=== PATIENT | female | born 2000 | race Caucasian/White ===

== ENCOUNTER 2018-07-05 18:55 | Emergency (ER) | payer OTHER ==
[2018-07-05 19:59] LABS: Basophils % (A) 0 %; Eosinophils # (A) 0.1 k/uL (0-0.7); Eosinophils % (A) 1 %; HCT 43.2 % (34.0-46.0); HGB 14.6 gm/dL (11.4-16.0); Lymphocytes # (A) 1.3 k/uL (1.0-4.8); Lymphocytes % (A) 21 %; MCH 31.2 pg (25.0-35.0); MCHC 33.9 g/dL (31.0-37.0); Mean Platelet Volume 7.3; Monocytes # (A) 0.3 k/uL (0-1.0); Monocytes % (A) 5 %; Neutrophils # (A) 4.5 k/uL (1.3-7.7); Neutrophils % (A) 71 %; Platelet Count 196 k/uL (150-450); RBC 4.69 m/uL (3.80-5.40); RDW 13.3 % (11.5-15.5); WBC 6.3 k/uL (4.0-11.0)
[2018-07-05] MEDS ORDERED: SODIUM CHLORIDE 0.9% 1,000 ML IV ONE (20:04)
[2018-07-05 20:08] LABS: ALT 65 U/L (9-52); AST 46 U/L (14-36); Albumin 4.4 g/dL (3.5-5.0); Alkaline Phosphatase 78 U/L (38-126); Anion Gap 8 mmol/L; Blood Urea Nitrogen 14 mg/dL (7-17); Calcium 9.4 mg/dL (8.4-10.2); Carbon Dioxide 27 mmol/L (22-30); Chloride 104 mmol/L (98-107); Glucose 80 mg/dL (74-99); Sodium 139 mmol/L (137-145); Total Bilirubin 0.6 mg/dL (0.2-1.3); Total Protein 7.7 g/dL (6.3-8.2)
--- NOTE | 2018-07-05 20:12 | ED ---
Back Pain HPI - General Chief Complaint: Back Pain/Injury Stated Complaint: KIDNEY PAIN Time Seen by Provider: 07/05/18 19:59 Source: patient Limitations: no limitations - History of Present Illness Initial Comments: 17-year-old female patient presents to emergency department today for evaluation of flank pain. Patient started to have right flank pain yesterday, states that the left flank started to hurt today. Patient states that she does have a history of frequent urinary tract infections and kidney stones. Patient states that she did take Azo yesterday but did not help her symptoms. She denies any dysuria, hematuria, urinary urgency, urinary frequency. States she has been chilled, denies documented fever. Denies nausea or vomiting. States there is a chance she may be . She denies any cough or congestion but states that the right flank does hurt worse and she takes a deep breath. Patient states she has seen a specialist for urinary tract infections, states that he only treated her with antibiotics. Patient denies any recent rash, shortness breath, chest pain, abdominal pain, diarrhea, constipation, back pain , numbness, tingling, dizziness, weakness, headache, visual changes, or any other complaints. - Related Data Home Medications Medication Instructions Recorded Confirmed Azo Urinary Pain Relief 2 tab PO TID PRN 07/05/18 07/05/18 Previous Rx's Medication Instructions Recorded Sulfamethoxazole/Trimethoprim 1 each PO BID #10 tablet 07/05/18 [Bactrim DS 800-160 mg] Allergies Allergy/AdvReac Type Severity Reaction Status Date / Time nitrofurantoin Allergy Unknown Verified 07/05/18 19:04 [From [employer]] Review of Systems ROS Statement: Those systems with pertinent positive or pertinent negative responses have been documented in the HPI. ROS Other: All systems not noted in ROS Statement are negative. Past Medical History Past Medical History: No Reported History History of Any Multi-Drug Resistant Organisms: None Reported Past Surgical History: No Surgical Hx Reported Past Psychological History: No Psychological Hx Reported Smoking Status: Never smoker Past Alcohol Use History: None Reported Past Drug Use History: None Reported General Exam Limitations: no limitations General appearance: alert, in no apparent distress, other (This is a well- developed, well-nourished adult female patient in no acute distress. Vital signs upon presentation are temperature 97.7F, pulse 83, respirations 20, blood pressure 118/80, pulse ox 96% on room air.) Eye exam: Present: normal appearance, PERRL, EOMI. Absent: scleral icterus, conjunctival injection, periorbital swelling ENT exam: Present: normal exam, normal oropharynx, mucous membranes moist Respiratory exam: Present: normal lung sounds bilaterally. Absent: respiratory distress, wheezes, rales, rhonchi, stridor Cardiovascular Exam: Present: regular rate, normal rhythm, normal heart sounds. Absent: systolic murmur, diastolic murmur, rubs, gallop, clicks GI/Abdominal exam: Present: soft, normal bowel sounds. Absent: distended, tenderness, guarding, rebound, rigid Back exam: Present: normal inspection. Absent: CVA tenderness (R), CVA tenderness (L) Neurological exam: Present: alert, oriented X3, CN II-XII intact Psychiatric exam: Present: normal affect, normal mood Skin exam: Present: warm, dry, intact, normal color. Absent: rash Course Vital Signs 07/05/18 07/05/18 19:02 20:50 Temperature 97.7 F 98.5 F Pulse Rate 83 68 Respiratory 20 18 Rate Blood Pressure 118/80 115/66 O2 Sat by Pulse 96 99 Oximetry Medical Decision Making - Medical Decision Making 17-year-old female patient presents the emergency department today for complaints of bilateral flank pain. Physical examination is relatively unremarkable. Labs reviewed and are unremarkable. Urinalysis did have many bacteria so we will treat patient for urinary tract infection. Patient does have frequent urinary tract infection so we will have her follow-up with urology for further evaluation. Return parameters were discussed in detail. She verbalizes understanding and agrees with this plan. - Lab Data Result diagrams: 07/05/18 19:50 07/05/18 19:50 Lab Results 07/05/18 07/05/18 07/05/18 Range/Units 19:50 19:50 20:00 WBC 6.3 (4.0-11.0) k/uL RBC 4.69 (3.80-5.40) m/uL Hgb 14.6 (11.4-16.0) gm/dL Hct 43.2 (34.0-46.0) % MCV 92.0 (80.0-100.0) fL MCH 31.2 (25.0-35.0) pg MCHC 33.9 (31.0-37.0) g/dL RDW 13.3 (11.5-15.5) % Plt Count 196 (150-450) k/uL Neutrophils % 71 % Lymphocytes % 21 % Monocytes % 5 % Eosinophils % 1 % Basophils % 0 % Neutrophils # 4.5 (1.3-7.7) k/uL Lymphocytes # 1.3 (1.0-4.8) k/uL Monocytes # 0.3 (0-1.0) k/uL Eosinophils # 0.1 (0-0.7) k/uL Basophils # 0.0 (0-0.2) k/uL Sodium 139 (137-145) mmol/L Potassium 4.0 (3.5-5.1) mmol/L Chloride 104 (98-107) mmol/L Carbon Dioxide 27 (22-30) mmol/L Anion Gap 8 mmol/L BUN 14 (7-17) mg/dL Creatinine 0.80 (0.52-1.04) mg/dL Est GFR (CKD-EPI)AfAm >90 (>60 ml/min/1.73 sqM) Est GFR (CKD-EPI)NonAf >90 (>60 ml/min/1.73 sqM) Glucose 80 (74-99) mg/dL Calcium 9.4 (8.4-10.2) mg/dL Total Bilirubin 0.6 (0.2-1.3) mg/dL AST 46 H (14-36) U/L ALT 65 H (9-52) U/L Alkaline Phosphatase 78 (38-126) U/L Total Protein 7.7 (6.3-8.2) g/dL Albumin 4.4 (3.5-5.0) g/dL Urine Color Yellow Urine Appearance Cloudy H (Clear) Urine pH 7.0 (5.0-8.0) Ur Specific [place] 1.013 (1.001-1.035) Urine Protein Negative (Negative) Urine Glucose (UA) Negative (Negative) Urine Ketones Negative (Negative) Urine Blood Negative (Negative) Urine Nitrite Negative (Negative) Urine Bilirubin Negative (Negative) Urine Urobilinogen <2.0 (<2.0) mg/dL Ur Leukocyte Esterase Small H (Negative) Urine RBC 5 (0-5) /hpf Urine WBC 8 H (0-5) /hpf Ur Squamous Epith Cells 2 (0-4) /hpf Amorphous Sediment Rare H (None) /hpf Urine Bacteria Many H (None) /hpf Urine Mucus Rare H (None) /hpf Urine HCG, Qual (Not Detectd) 07/05/18 Range/Units 20:00 WBC (4.0-11.0) k/uL RBC (3.80-5.40) m/uL Hgb (11.4-16.0) gm/dL Hct (34.0-46.0) % MCV (80.0-100.0) fL MCH (25.0-35.0) pg MCHC (31.0-37.0) g/dL RDW (11.5-15.5) % Plt Count (150-450) k/uL Neutrophils % % Lymphocytes % % Monocytes % % Eosinophils % % Basophils % % Neutrophils # (1.3-7.7) k/uL Lymphocytes # (1.0-4.8) k/uL Monocytes # (0-1.0) k/uL Eosinophils # (0-0.7) k/uL Basophils # (0-0.2) k/uL Sodium (137-145) mmol/L Potassium (3.5-5.1) mmol/L Chloride (98-107) mmol/L Carbon Dioxide (22-30) mmol/L Anion Gap mmol/L BUN (7-17) mg/dL Creatinine (0.52-1.04) mg/dL Est GFR (CKD-EPI)AfAm (>60 ml/min/1.73 sqM) Est GFR (CKD-EPI)NonAf (>60 ml/min/1.73 sqM) Glucose (74-99) mg/dL Calcium (8.4-10.2) mg/dL Total Bilirubin (0.2-1.3) mg/dL AST (14-36) U/L ALT (9-52) U/L Alkaline Phosphatase (38-126) U/L Total Protein (6.3-8.2) g/dL Albumin (3.5-5.0) g/dL Urine Color Urine Appearance (Clear) Urine pH (5.0-8.0) Ur Specific [place] (1.001-1.035) Urine Protein (Negative) Urine Glucose (UA) (Negative) Urine Ketones (Negative) Urine Blood (Negative) Urine Nitrite (Negative) Urine Bilirubin (Negative) Urine Urobilinogen (<2.0) mg/dL Ur Leukocyte Esterase (Negative) Urine RBC (0-5) /hpf Urine WBC (0-5) /hpf Ur Squamous Epith Cells (0-4) /hpf Amorphous Sediment (None) /hpf Urine Bacteria (None) /hpf Urine Mucus (None) /hpf Urine HCG, Qual Not Detected (Not Detectd) Disposition Clinical Impression: Urinary tract infection Disposition: HOME SELF-CARE Condition: Good Instructions: Urinary Tract Infection in Women (DC) Additional Instructions: Complete antibiotic prescription and full. Call for culture results in 2 days. Follow-up with your primary care physician and your urology specialist for further evaluation. Return here immediately for any new, worsening, or concerning symptoms. Prescriptions: Sulfamethoxazole/Trimethoprim [Bactrim DS 800-160 mg] 1 each PO BID #10 tablet Is patient prescribed a controlled substance at d/c from ED?: No Referrals: Ger Shearer MD [STAFF PHYSICIAN] - 1-2 days Time of Disposition: 20:44
[2018-07-05 20:21] LABS: Amorphous Sediment,Urine Rare /hpf; Appearance,Urine Cloudy (Clear); Bacteria,Urine Many /hpf; Bilirubin,Urine Negative (Negative); Blood,Urine Negative (Negative); Color,Urine Yellow; Glucose,Urine (UA) Negative (Negative); Ketones,Urine Negative (Negative); Leukocyte Esterase,Urine Small (Negative); Mucus,Urine Rare /hpf; Nitrite,Urine Negative (Negative); Protein,Urine Negative (Negative); RBC,Urine 5 /hpf (0-5); Specific Gravity,Urine 1.013 (1.001-1.035); Squamous Epithelial Cell,Urine 2 /hpf (0-4); Urobilinogen,Urine <2.0 mg/dL (<2.0); WBC,Urine 8 /hpf (0-5)
[2018-07-05 21:05] VITALS: BP 115/66; PULSE 68; RESP 18; TEMP 98.5
== END 2018-07-05 20:50 | disposition home or self-care (01) ==
LOC: EC 18:55
DX: N39.0 Urinary tract infection, site not specified (principal); Z87.442 Personal history of urinary calculi; Z88.1 Allergy status to other antibiotic agents
CPT/HCPCS: 36415; 80053; 81001; 81025; 85025; 87086; 96360; 99283

== ENCOUNTER 2020-03-15 17:29 | Emergency (ER) | payer OTHER ==
--- NOTE | 2020-03-15 18:14 | ED ---
Female Urogenital HPI - General Chief complaint: Vaginal Bleeding Stated complaint: Vaginal bleeding, Time Seen by Provider: 03/15/20 17:52 Source: patient Mode of arrival: ambulatory Limitations: no limitations - History of Present Illness Initial comments: Patient is a 19-year-old female presenting to the emergency Department with complaints of vaginal spotting and cramping since this morning. Patient states she is currently approximately 7 weeks with twins. Patient states this was confirmed by blood testing/US 2 weeks ago. Patient is seeing Ellen Fitzgerald at [facility]. Patient states this morning she has noticed some cramping as well as bleeding. Patient states it is not enough to soak a full pad but states it is continuous. She has not noticed any passing of clots. This is patient's first . Patient denies any dysuria. She denies any sharp shooting abdominal pain. She has no previous abdominal surgeries. Patient denies recent fever, chills. She has no other complaints at this time. - Related Data Home Medications Medication Instructions Recorded Confirmed Azo Urinary Pain Relief 2 tab PO TID PRN 07/05/18 07/05/18 Previous Rx's Medication Instructions Recorded Sulfamethoxazole/Trimethoprim 1 each PO BID #10 tablet 07/05/18 [Bactrim DS 800-160 mg] Allergies Allergy/AdvReac Type Severity Reaction Status Date / Time nitrofurantoin Allergy Unknown Verified 03/15/20 17:34 [From [employer]] Review of Systems ROS Statement: Those systems with pertinent positive or pertinent negative responses have been documented in the HPI. ROS Other: All systems not noted in ROS Statement are negative. Past Medical History Past Medical History: No Reported History History of Any Multi-Drug Resistant Organisms: None Reported Past Surgical History: No Surgical Hx Reported Past Psychological History: Depression Smoking Status: Never smoker Past Alcohol Use History: None Reported Past Drug Use History: None Reported General Exam - General Exam Comments Initial Comments: GENERAL: Well-appearing, well-nourished and in no acute distress. HEAD: Atraumatic, normocephalic. EYES: Pupils equal round and reactive to light, extraocular movements intact, sclera anicteric, conjunctiva are normal. ENT: Moist mucous membranes. NECK: Normal range of motion, supple without lymphadenopathy or JVD. LUNGS: Breath sounds clear to auscultation bilaterally and equal. No wheezes rales or rhonchi. HEART: Regular rate and rhythm without murmurs, rubs or gallops. ABDOMEN: Soft, nontender, normoactive bowel sounds. No guarding, no rebound. No masses appreciated. EXTREMITIES: Normal range of motion, no pitting or edema. No clubbing or cyanosis. NEUROLOGICAL: Normal speech, normal gait. PSYCH: Normal mood, normal affect. SKIN: Warm, Dry, normal turgor, no rashes or lesions noted. Limitations: no limitations External exam: Present: normal external exam Speculum exam: Present: vaginal discharge. Absent: vaginal bleeding, foreign body By manual exam: Present: normal by manual exam Course Vital Signs 03/15/20 03/15/20 17:31 20:14 Temperature 97.9 F 98.0 F Pulse Rate 89 85 Respiratory 18 16 Rate Blood Pressure 118/74 121/77 O2 Sat by Pulse 97 98 Oximetry Medical Decision Making - Medical Decision Making Patient is a 19-year-old female currently 7 weeks , with twins, here for vaginal cramping and spotting. . Patient sees Ellen Fitzgerald at [facility]. Patient's vaginal exam reveals no vaginal bleeding, mild cervical discharge. Cervical os appears to be closed. Lab work shows no significant findings, hCG Quant is 32,000. Blood type is O+. Ultrasound reveals 2 gestational sacs within the uterus. Psych A contains a pole and yolk sac although no heart tones are identified at this time. A second sac contains a yolk sac although no pole is identified. Follow-up is recommended. I did discuss these findings with the patient. Patient will follow up with her FOOD SERVICE ATTENDANT on Wednesday. I did give patient a lab slip for repeat beta in 48 hours. Patient is stable for discharge. I did go over return parameters and she verbalizes understanding. Case discussed with Dr. Bowen. - Lab Data Result diagrams: 03/15/20 18:20 03/15/20 18:20 Lab Results 03/15/20 03/15/20 03/15/20 Range/Units 18:20 18:20 18:20 WBC 6.8 (3.8-10.6) k/uL RBC 4.32 (3.80-5.40) m/uL Hgb 13.7 (11.4-16.0) gm/dL Hct 40.6 (34.0-46.0) % MCV 93.9 (80.0-100.0) fL MCH 31.6 (25.0-35.0) pg MCHC 33.7 (31.0-37.0) g/dL RDW 12.5 (11.5-15.5) % Plt Count 194 (150-450) k/uL Neutrophils % 72 % Lymphocytes % 21 % Monocytes % 4 % Eosinophils % 1 % Basophils % 0 % Neutrophils # 4.9 (1.3-7.7) k/uL Lymphocytes # 1.4 (1.0-4.8) k/uL Monocytes # 0.3 (0-1.0) k/uL Eosinophils # 0.1 (0-0.7) k/uL Basophils # 0.0 (0-0.2) k/uL Sodium 139 (137-145) mmol/L Potassium 3.9 (3.5-5.1) mmol/L Chloride 107 (98-107) mmol/L Carbon Dioxide 20 L (22-30) mmol/L Anion Gap 12 mmol/L BUN 6 L (7-17) mg/dL Creatinine 0.63 (0.52-1.04) mg/dL Est GFR (CKD-EPI)AfAm >90 (>60 ml/min/1.73 sqM) Est GFR (CKD-EPI)NonAf >90 (>60 ml/min/1.73 sqM) Glucose 85 (74-99) mg/dL Calcium 9.5 (8.4-10.2) mg/dL Total Bilirubin 0.6 (0.2-1.3) mg/dL AST 24 (14-36) U/L ALT 11 (4-34) U/L Alkaline Phosphatase 65 (38-126) U/L Total Protein 7.5 (6.3-8.2) g/dL Albumin 4.4 (3.5-5.0) g/dL HCG, Quant 30852.7 mIU/mL Urine Color Yellow Urine Appearance Cloudy H (Clear) Urine pH 6.0 (5.0-8.0) Ur Specific [place] 1.020 (1.001-1.035) Urine Protein Trace H (Negative) Urine Glucose (UA) Negative (Negative) Urine Ketones 1+ H (Negative) Urine Blood Small H (Negative) Urine Nitrite Negative (Negative) Urine Bilirubin Negative (Negative) Urine Urobilinogen 2.0 (<2.0) mg/dL Ur Leukocyte Esterase Small H (Negative) Urine RBC 66 H (0-5) /hpf Urine WBC 12 H (0-5) /hpf Ur Squamous Epith Cells 5 H (0-4) /hpf Urine Mucus Few H (None) /hpf Blood Type Blood Type Recheck Bld Type Recheck Status 03/15/20 Range/Units 18:20 WBC (3.8-10.6) k/uL RBC (3.80-5.40) m/uL Hgb (11.4-16.0) gm/dL Hct (34.0-46.0) % MCV (80.0-100.0) fL MCH (25.0-35.0) pg MCHC (31.0-37.0) g/dL RDW (11.5-15.5) % Plt Count (150-450) k/uL Neutrophils % % Lymphocytes % % Monocytes % % Eosinophils % % Basophils % % Neutrophils # (1.3-7.7) k/uL Lymphocytes # (1.0-4.8) k/uL Monocytes # (0-1.0) k/uL Eosinophils # (0-0.7) k/uL Basophils # (0-0.2) k/uL Sodium (137-145) mmol/L Potassium (3.5-5.1) mmol/L Chloride (98-107) mmol/L Carbon Dioxide (22-30) mmol/L Anion Gap mmol/L BUN (7-17) mg/dL Creatinine (0.52-1.04) mg/dL Est GFR (CKD-EPI)AfAm (>60 ml/min/1.73 sqM) Est GFR (CKD-EPI)NonAf (>60 ml/min/1.73 sqM) Glucose (74-99) mg/dL Calcium (8.4-10.2) mg/dL Total Bilirubin (0.2-1.3) mg/dL AST (14-36) U/L ALT (4-34) U/L Alkaline Phosphatase (38-126) U/L Total Protein (6.3-8.2) g/dL Albumin (3.5-5.0) g/dL HCG, Quant mIU/mL Urine Color Urine Appearance (Clear) Urine pH (5.0-8.0) Ur Specific [place] (1.001-1.035) Urine Protein (Negative) Urine Glucose (UA) (Negative) Urine Ketones (Negative) Urine Blood (Negative) Urine Nitrite (Negative) Urine Bilirubin (Negative) Urine Urobilinogen (<2.0) mg/dL Ur Leukocyte Esterase (Negative) Urine RBC (0-5) /hpf Urine WBC (0-5) /hpf Ur Squamous Epith Cells (0-4) /hpf Urine Mucus (None) /hpf Blood Type O Positive Blood Type Recheck No Previous Record Bld Type Recheck Status [facility] ONLY Disposition Clinical Impression: Threatened , Bilateral lower abdominal cramping, Vaginal spotting Disposition: HOME SELF-CARE Condition: Stable Instructions (If sedation given, give patient instructions): Threatened Miscarriage (ED) Additional Instructions: Please return to the Emergency Department if symptoms worsen or any other concerns. Follow-up with FOOD SERVICE ATTENDANT on Wednesday as discussed. Is patient prescribed a controlled substance at d/c from ED?: No Referrals: None,Stated [Primary Care Provider] - 1-2 days
[2020-03-15 18:35] LABS: Basophils % (A) 0 %; Eosinophils # (A) 0.1 k/uL (0-0.7); Eosinophils % (A) 1 %; HCT 40.6 % (34.0-46.0); HGB 13.7 gm/dL (11.4-16.0); Lymphocytes # (A) 1.4 k/uL (1.0-4.8); Lymphocytes % (A) 21 %; MCH 31.6 pg (25.0-35.0); MCHC 33.7 g/dL (31.0-37.0); MCV 93.9 fL (80.0-100.0); Mean Platelet Volume 8.5; Monocytes # (A) 0.3 k/uL (0-1.0); Monocytes % (A) 4 %; Neutrophils # (A) 4.9 k/uL (1.3-7.7); Neutrophils % (A) 72 %; Platelet Count 194 k/uL (150-450); RBC 4.32 m/uL (3.80-5.40); RDW 12.5 % (11.5-15.5); WBC 6.8 k/uL (3.8-10.6)
[2020-03-15 18:40] LABS: ALT 11 U/L (4-34); AST 24 U/L (14-36); African American GFR (CKD) >90 (>60 ml/min/1.73 sqM); Albumin 4.4 g/dL (3.5-5.0); Alkaline Phosphatase 65 U/L (38-126); Anion Gap 12 mmol/L; Blood Urea Nitrogen 6 mg/dL (7-17); Calcium 9.5 mg/dL (8.4-10.2); Carbon Dioxide 20 mmol/L (22-30); Chloride 107 mmol/L (98-107); Glucose 85 mg/dL (74-99); Non-African American GFR(CKD) >90 (>60 ml/min/1.73 sqM); Potassium 3.9 mmol/L (3.5-5.1); Sodium 139 mmol/L (137-145); Total Bilirubin 0.6 mg/dL (0.2-1.3); Total Protein 7.5 g/dL (6.3-8.2)
[2020-03-15 19:04] LABS: Appearance,Urine Cloudy (Clear); Bilirubin,Urine Negative (Negative); Blood,Urine Small (Negative); Color,Urine Yellow; Glucose,Urine (UA) Negative (Negative); Ketones,Urine 1+ (Negative); Leukocyte Esterase,Urine Small (Negative); Mucus,Urine Few /hpf; Nitrite,Urine Negative (Negative); Protein,Urine Trace (Negative); RBC,Urine 66 /hpf (0-5); Squamous Epithelial Cell,Urine 5 /hpf (0-4); WBC,Urine 12 /hpf (0-5)
[2020-03-15 19:24] LABS: HCG,Quantitative Serum 32425.7 mIU/mL
--- NOTE | 2020-03-15 19:47 | US ---
EXAMINATION TYPE: US OB<=14wk fetus twins/travag DATE OF EXAM: 03/15/2020 COMPARISON: NONE CLINICAL HISTORY: cramping, bleeding. cramping and spotting today EXAM PERFORMED: Transvaginal (TV) and Transabdominal (TA) EXAM MEASUREMENTS: GESTATIONAL AGE / DATING Physician Established: Not yet established Dates by LMP: (8 weeks/2 days) EDC: 10/23/20 Dates by First Scan: No previous this is first scan Dates by Current Scan for Baby A: (6 weeks/5 days) EDC: 11/03/20 Dates by Current Scan for Baby B: ( 6 weeks/5 days) - MSD EDC: 11/03/20 - MSD MATERNAL ANATOMY Uterus: 9.1 x 4.4 x 6.0cm Right Ovary: obscured by overlying bowel content Left Ovary: 3.7 x 2.2 x 2.8cm Post CDS / Adnexa: small amount of free fluid left adnexa adjacent to ovary Presence of free fluid: yes Presence of corpus luteal cyst: yes, complex area left ovary = 1.7 x 1.9 x 1.8cm Presence of two separate gestational sacs: yes GESTATION / SURVEY TWIN A CRL: 7.6cm (6wks/5days) Yolk Sac (normal less than 6mm): 0.5cm Heart Rate: unable to detect heart tones at this time TWIN B MSD: 1.1cm (6wks/5days) Yolk Sac (normal less than 6mm): 0.4cm IUP: No evidence of pole at this time Date of LMP: 01/17/20 Beta HcG (if available): Not available at this time 2 gestational sacs identified within uterus. Unable to detect heart tones at this time - Baby A . No evidence of pole identified within baby B gestational sac. Corpus luteum left ovary. Small amount of free fluid left adnexa. recommend short term follow up IMPRESSION: 1. There are 2 gestational sacs within the uterus. 2. Sac A contains a pole and yolk sac although no heart tones could be identified at this time. From flank would suggest a 6 week 5 day gestation which should have heart tones visible. 3. A second gestational sac contains a yolk sac although no pole is identified. 4. Follow-up is recommended.
[2020-03-15 20:15] VITALS: BP 121/77; PULSE 85; RESP 16; TEMP 98
== END 2020-03-15 20:15 | disposition home or self-care (01) ==
LOC: EC 17:29
DX: O20.0 Threatened abortion (principal); O99.89 Other specified diseases and conditions complicating pregnancy, childbirth and the puerperium; R10.31 Right lower quadrant pain; R10.32 Left lower quadrant pain; Z3A.01 Less than 8 weeks gestation of pregnancy; Z88.1 Allergy status to other antibiotic agents
CPT/HCPCS: 36415; 76801; 76802; 76817; 80053; 81001; 84702; 85025; 86900; 86901; 87086; 99284

== ENCOUNTER 2020-04-03 16:41 | Emergency (ER) | payer OTHER ==
[2020-04-03 16:44] VITALS: BP 111/77; PULSE 71; RESP 18; TEMP 98
[2020-04-03] MEDS ORDERED: SODIUM CHLORIDE 0.9% 1,000 ML IV ONE (17:32)
[2020-04-03] MEDS ORDERED: ACETAMINOPHEN TAB 500 MG TAB PO STA (17:32)
--- NOTE | 2020-04-03 18:04 | ED ---
General Adult HPI - General Chief complaint: Vaginal Bleeding Stated complaint: post miscarriage/vaginal bleeding Time Seen by Provider: 04/03/20 16:48 Source: patient Mode of arrival: ambulatory Limitations: no limitations - History of Present Illness Initial comments: 19-year-old female patient presents to the emergency department today for evaluation of vaginal bleeding. Patient states that she had positive test at home, was seen and evaluated on 03/15/2020 and was informed she was having a miscarriage. Patient states 3 days ago she started to have red vaginal bleeding. States that today she has been having heavier bleeding and soaking through a pad an hour. States she is passing large blood clots. States she has been following up with her PLASTIC MAKER and [facility] who has been performing serial hCGs which have been decreasing. Patient states she is having lower abdominal cramping and low back pain. Denies dizziness or weakness. Denies any fever or chills. She denies nausea or vomiting. Patient is G1. Last period was January 12. Patient denies any recent rash, cough, shortness of breath, chest pain, diarrhea, constipation, back pain, numbness, tingling, hematuria, dysuria, urinary urgency, urinary frequency, headache, visual changes, or any other complaints. - Related Data Home Medications Medication Instructions Recorded Confirmed Azo Urinary Pain Relief 2 tab PO TID PRN 07/05/18 07/05/18 Previous Rx's Medication Instructions Recorded Sulfamethoxazole/Trimethoprim 1 each PO BID #10 tablet 07/05/18 [Bactrim DS 800-160 mg] Ketorolac [Toradol] 10 mg PO Q6HR #12 tab 04/03/20 Allergies Allergy/AdvReac Type Severity Reaction Status Date / Time nitrofurantoin Allergy Unknown Verified 04/03/20 16:44 [From [email or web address]] Review of Systems ROS Statement: Those systems with pertinent positive or pertinent negative responses have been documented in the HPI. ROS Other: All systems not noted in ROS Statement are negative. Past Medical History Past Medical History: No Reported History History of Any Multi-Drug Resistant Organisms: None Reported Past Surgical History: No Surgical Hx Reported Past Psychological History: Depression Smoking Status: Never smoker Past Alcohol Use History: None Reported Past Drug Use History: None Reported General Exam Limitations: no limitations General appearance: alert, in no apparent distress, other (This is a well- developed, well-nourished adult female patient in no acute distress. Vital signs upon presentation are temperature 98.0F, pulse 71, respirations 18, blood pressure 111/77, pulse ox 99% on room air.) Eye exam: Present: normal appearance, PERRL, EOMI. Absent: scleral icterus, conjunctival injection, periorbital swelling ENT exam: Present: normal exam, normal oropharynx, mucous membranes moist Respiratory exam: Present: normal lung sounds bilaterally. Absent: respiratory distress, wheezes, rales, rhonchi, stridor Cardiovascular Exam: Present: regular rate, normal rhythm, normal heart sounds. Absent: systolic murmur, diastolic murmur, rubs, gallop, clicks GI/Abdominal exam: Present: soft, tenderness (Suprapubic), normal bowel sounds. Absent: distended, guarding, rebound, rigid External exam: Present: normal external exam Speculum exam: Present: vaginal bleeding (moderate vaginal bleeding with presence of large clots. Unable to visualize cervix due to bleeding. ) Neurological exam: Present: alert, oriented X3, CN II-XII intact Psychiatric exam: Present: normal affect, normal mood Skin exam: Present: warm, dry, intact, normal color. Absent: rash Course Vital Signs 04/03/20 16:42 Temperature 98.0 F Pulse Rate 71 Respiratory 18 Rate Blood Pressure 111/77 O2 Sat by Pulse 99 Oximetry Medical Decision Making - Medical Decision Making 19-year-old female patient presented to the emergency department today for evaluation of heavy vaginal bleeding and abdominal pain. Patient is aware that she is having a miscarriage of a twin gestation. Physical examination did reveal suprapubic abdominal tenderness. Vaginal exam was performed and did show moderate bleeding with large amount of clots. Ultrasound was obtained and did show demise of twin B and possibly twin A. HCG level did decrease from 35,000 on 03/15/2020 6000 today. Hgb is 13.5. V/S have been stable. Dr. Santos was in to see the patient. He did discuss D&C with the patient. She is stable right now and would prefer to pass the products of conception spontaneously. She will be given prescription for pain. She is instructed to call her PLASTIC MAKER in the morning. Return parameters were discussed in detail. She verbalizes understanding and agrees with this plan. - Lab Data Result diagrams: 04/03/20 17:58 04/03/20 17:58 Lab Results 04/03/20 04/03/20 04/03/20 Range/Units 17:58 17:58 17:58 WBC 5.7 (3.8-10.6) k/uL RBC 4.16 (3.80-5.40) m/uL Hgb 13.5 (11.4-16.0) gm/dL Hct 39.9 (34.0-46.0) % MCV 95.9 (80.0-100.0) fL MCH 32.4 (25.0-35.0) pg MCHC 33.8 (31.0-37.0) g/dL RDW 13.1 (11.5-15.5) % Plt Count 209 (150-450) k/uL Neutrophils % 66 % Lymphocytes % 25 % Monocytes % 5 % Eosinophils % 1 % Basophils % 0 % Neutrophils # 3.8 (1.3-7.7) k/uL Lymphocytes # 1.4 (1.0-4.8) k/uL Monocytes # 0.3 (0-1.0) k/uL Eosinophils # 0.1 (0-0.7) k/uL Basophils # 0.0 (0-0.2) k/uL PT 10.5 (9.0-12.0) sec INR 1.0 (<1.2) APTT 23.6 (22.0-30.0) sec Sodium 136 L (137-145) mmol/L Potassium 4.2 (3.5-5.1) mmol/L Chloride 107 (98-107) mmol/L Carbon Dioxide 22 (22-30) mmol/L Anion Gap 7 mmol/L BUN 5 L (7-17) mg/dL Creatinine 0.66 (0.52-1.04) mg/dL Est GFR (CKD-EPI)AfAm >90 (>60 ml/min/1.73 sqM) Est GFR (CKD-EPI)NonAf >90 (>60 ml/min/1.73 sqM) Glucose 82 (74-99) mg/dL Calcium 9.7 (8.4-10.2) mg/dL Total Bilirubin 0.8 (0.2-1.3) mg/dL AST 24 (14-36) U/L ALT 11 (4-34) U/L Alkaline Phosphatase 68 (38-126) U/L Total Protein 7.4 (6.3-8.2) g/dL Albumin 4.3 (3.5-5.0) g/dL HCG, Quant 6249.7 mIU/mL Urine Color Urine Appearance (Clear) Urine pH (5.0-8.0) Ur Specific [place] (1.001-1.035) Urine Protein (Negative) Urine Glucose (UA) (Negative) Urine Ketones (Negative) Urine Blood (Negative) Urine Nitrite (Negative) Urine Bilirubin (Negative) Urine Urobilinogen (<2.0) mg/dL Ur Leukocyte Esterase (Negative) Urine RBC (0-5) /hpf Urine WBC (0-5) /hpf Ur Squamous Epith Cells (0-4) /hpf Urine Bacteria (None) /hpf Urine Mucus (None) /hpf Blood Type Blood Type Recheck Bld Type Recheck Status 04/03/20 04/03/20 Range/Units 17:58 Unknown WBC (3.8-10.6) k/uL RBC (3.80-5.40) m/uL Hgb (11.4-16.0) gm/dL Hct (34.0-46.0) % MCV (80.0-100.0) fL MCH (25.0-35.0) pg MCHC (31.0-37.0) g/dL RDW (11.5-15.5) % Plt Count (150-450) k/uL Neutrophils % % Lymphocytes % % Monocytes % % Eosinophils % % Basophils % % Neutrophils # (1.3-7.7) k/uL Lymphocytes # (1.0-4.8) k/uL Monocytes # (0-1.0) k/uL Eosinophils # (0-0.7) k/uL Basophils # (0-0.2) k/uL PT (9.0-12.0) sec INR (<1.2) APTT (22.0-30.0) sec Sodium (137-145) mmol/L Potassium (3.5-5.1) mmol/L Chloride (98-107) mmol/L Carbon Dioxide (22-30) mmol/L Anion Gap mmol/L BUN (7-17) mg/dL Creatinine (0.52-1.04) mg/dL Est GFR (CKD-EPI)AfAm (>60 ml/min/1.73 sqM) Est GFR (CKD-EPI)NonAf (>60 ml/min/1.73 sqM) Glucose (74-99) mg/dL Calcium (8.4-10.2) mg/dL Total Bilirubin (0.2-1.3) mg/dL AST (14-36) U/L ALT (4-34) U/L Alkaline Phosphatase (38-126) U/L Total Protein (6.3-8.2) g/dL Albumin (3.5-5.0) g/dL HCG, Quant mIU/mL Urine Color Yellow Urine Appearance Clear (Clear) Urine pH 6.0 (5.0-8.0) Ur Specific [place] 1.017 (1.001-1.035) Urine Protein Negative (Negative) Urine Glucose (UA) Negative (Negative) Urine Ketones 1+ H (Negative) Urine Blood Moderate H (Negative) Urine Nitrite Negative (Negative) Urine Bilirubin Negative (Negative) Urine Urobilinogen 6.0 (<2.0) mg/dL Ur Leukocyte Esterase Negative (Negative) Urine RBC 15 H (0-5) /hpf Urine WBC 1 (0-5) /hpf Ur Squamous Epith Cells 1 (0-4) /hpf Urine Bacteria Rare H (None) /hpf Urine Mucus Rare H (None) /hpf Blood Type O Positive Blood Type Recheck O Pos Bld Type Recheck Status No - Radiology Data Radiology results: report reviewed, image reviewed Transvaginal ultrasound was obtained. Report was reviewed in its entirety. Impression by Dr. Rudy Giles shows suspected intrauterine twin the demise. Nonvisualization twin A pole without heart tones detected. This may be pr oducts of small size. Short-term beta hCG and ultrasound follow-up advised. Disposition Clinical Impression: Miscarriage Disposition: HOME SELF-CARE Condition: Good Instructions (If sedation given, give patient instructions): Miscarriage (ED) Additional Instructions: Follow up with your OBGYN in the morning. Apply warm compresses to the lower abdomen. Take tylenol in addition to your prescription. Return to the emergency department if you are soaking through more than 2 pads per hour, feel weak, dizzy, or pass out. Return to the emergency department for any new, worsening, or concerning symptoms. Prescriptions: Ketorolac [Toradol] 10 mg PO Q6HR #12 tab Is patient prescribed a controlled substance at d/c from ED?: No Referrals: Ellen Skaggs MD [REFERRING] - 1-2 days Time of Disposition: 20:36
[2020-04-03 18:18] LABS: Basophils % (A) 0 %; Eosinophils # (A) 0.1 k/uL (0-0.7); Eosinophils % (A) 1 %; HCT 39.9 % (34.0-46.0); HGB 13.5 gm/dL (11.4-16.0); Lymphocytes # (A) 1.4 k/uL (1.0-4.8); Lymphocytes % (A) 25 %; MCH 32.4 pg (25.0-35.0); MCHC 33.8 g/dL (31.0-37.0); MCV 95.9 fL (80.0-100.0); Mean Platelet Volume 8.9; Monocytes # (A) 0.3 k/uL (0-1.0); Monocytes % (A) 5 %; Neutrophils # (A) 3.8 k/uL (1.3-7.7); Neutrophils % (A) 66 %; Platelet Count 209 k/uL (150-450); RBC 4.16 m/uL (3.80-5.40); RDW 13.1 % (11.5-15.5); WBC 5.7 k/uL (3.8-10.6)
[2020-04-03 18:26] LABS: Partial Thromboplastin Time 23.6 sec (22.0-30.0); Prothrombin Time 10.5 sec (9.0-12.0)
[2020-04-03 18:31] LABS: ALT 11 U/L (4-34); AST 24 U/L (14-36); African American GFR (CKD) >90 (>60 ml/min/1.73 sqM); Albumin 4.3 g/dL (3.5-5.0); Alkaline Phosphatase 68 U/L (38-126); Anion Gap 7 mmol/L; Blood Urea Nitrogen 5 mg/dL (7-17); Calcium 9.7 mg/dL (8.4-10.2); Carbon Dioxide 22 mmol/L (22-30); Chloride 107 mmol/L (98-107); Glucose 82 mg/dL (74-99); Non-African American GFR(CKD) >90 (>60 ml/min/1.73 sqM); Potassium 4.2 mmol/L (3.5-5.1); Sodium 136 mmol/L (137-145); Total Bilirubin 0.8 mg/dL (0.2-1.3); Total Protein 7.4 g/dL (6.3-8.2)
[2020-04-03 18:47] LABS: HCG,Quantitative Serum 6249.7 mIU/mL
[2020-04-03] MEDS ORDERED: ONDANSETRON 4 MG/2 ML VIAL IVP STA (19:02)
[2020-04-03] MEDS ORDERED: MORPHINE SULFATE 4 MG/ML SYRINGE IVP STA (19:02)
--- NOTE | 2020-04-03 19:19 | US ---
EXAMINATION TYPE: US OB<=14wk fetus twins/travag DATE OF EXAM: 04/03/2020 COMPARISON: Recent ultrasound March 15, 2020 CLINICAL HISTORY: Bleeding; miscarriage. Vaginal bleeding x 2 days. Miscarriage per order. . EXAM PERFORMED: Transvaginal (TV) and Transabdominal (TA). Transvaginal exam done first due to pelvi c ultrasound order and no hCG lab available yet. EXAM MEASUREMENTS: GESTATIONAL AGE / DATING Physician Established: Not yet established. Dates by LMP: (11 weeks/0 days) EDC: 10/23/2020 Dates by First Scan: (9 weeks/3 days) EDC: 11/03/2020 Dates by Current Scan for Baby A: ( 6 weeks/1 day) EDC: 11/26/2020. No heart tones seen. Dates by Current Scan for Baby B: ( 6 weeks/2 days) EDC: 11/25/2020. MSD. MATERNAL ANATOMY Uterus: 10.2 x 6.2 x 4.9 cm. Complex fluid-appearing area seen in cervix inferiorly measurin.2 x 1.2 x 1.2 cm. Right Ovary: 3.0 x 2.2 x 1.6 cm. Follicles seen. Left Ovary: 3.5 x 2.7 x 2.0 cm. Measures upper limits of normal. Post CDS / Adnexa: Minimal fluid seen in CDS. Presence of free fluid: FF seen in CDS. Presence of corpus luteal cyst: Area of mixed echogenicity and peripheral vascularity seen left ovary measurin.4 x 1.5 x 1.2 cm. Presence of subchorionic bleed: Hypoechoic, heterogeneous area seen adjacent to the gestational sacs measurin.7 x 1.7 x 0.6 cm. Presence of two separate gestational sacs: yes GESTATION / SURVEY TWIN A CRL: 0.45 cm. (6wks/1day) Yolk Sac (normal less than 6mm): 3 mm. Heart Rate: Not detected IUP: No heart rate detected. TWIN B MSD: 1.82 cm. (6wks/2days) Yolk Sac (normal less than 6mm): Not seen. Heart Rate: Not detected. IUP: No CRL or yolk sac seen. Date of LMP: 01/17/2020 Beta HcG (if available): 6,249.7 available after exam. Measurements taken transvaginally with better visualization. No Doppler of ovaries needed per [employer]. Without visualization of pole twin A. Unable to detect heart rate which may be product of small size. No significant interval progression in possible twin B as now a yolk sac not clearly seen. No pole is clearly present. Gestational sac slightly more irregular in shape but slightly larger. IMPRESSION: Suspect intrauterine twin B demise. Now visualization of twin A pole without heart tones detected. This may be product of small size. Short-term beta-hCG and ultrasound follow-up advised.
[2020-04-03 19:23] LABS: Appearance,Urine Clear (Clear); Bacteria,Urine Rare /hpf; Bilirubin,Urine Negative (Negative); Blood,Urine Moderate (Negative); Color,Urine Yellow; Glucose,Urine (UA) Negative (Negative); Ketones,Urine 1+ (Negative); Leukocyte Esterase,Urine Negative (Negative); Mucus,Urine Rare /hpf; Nitrite,Urine Negative (Negative); Protein,Urine Negative (Negative); RBC,Urine 15 /hpf (0-5); Specific Gravity,Urine 1.017 (1.001-1.035); Squamous Epithelial Cell,Urine 1 /hpf (0-4); WBC,Urine 1 /hpf (0-5)
[2020-04-03] MEDS ORDERED: KETOROLAC 30 MG/ML 1 ML VIAL IVP STA (20:34)
--- NOTE | 2020-04-03 20:45 | P.OBCN ---
History of Present Illness Consult date: 04/03/20 Requesting physician: Viky Al Reason for consult: other Chief complaint: Missed AB History of present illness: Haley is a 27-year-old who is supposed to 11 weeks gestation who has ultrasound this afternoon verifying a 6 week twin demise. She relates that she is seeing a physician Dr. Ellen Bedoya out of [facility] and that at 5 weeks she had an ultrasound verifying twin gestation. On March 15 she was then seen in the emergency room at [facility] where ultrasound revealed nonviable twin gestation. She contacted her handle sewer at that point and they decided not to move forward with the suction D&C as she felt she could pass the tissue on her own. She has been handling everything over the phone it sounds like not certain that has seen her physician in 2 weeks. In discussing her symptoms why she came in today, she relates that she started having bright red bleeding earlier today it was heavier than what she was used to although she relates it was less than a pad an hour. She called her handle sewer who told her to go to the nearest hospital. On arrival here it is noted that her hemoglobin is 13 and her vital signs are all stable. Her bleeding is mild to moderate at this time and ultrasound verifies findings from previous ultrasoun ds. She and I discussed options including following up with her handle sewer tomorrow as she is posted blood work with them and trying to come up with a final plan on what she is going to do in the next several days to weeks if she continues to not have a full miscarriage and what the plan is if she starts having very heavy bleeding and where she is to report. I did explain that for heavy bleeding she needed come here as this is the closest hospital with obstetrical care. I did however also offer a suction D&C tonight she has declined that procedure. She relates that she was uncertain as to what to expect from miscarriage and she and I had a lengthy discussion on what symptoms and findings she may have in the upcoming days. I did explain that she will have significantly heavier bleeding than what she has had it could be anywhere from 1-2-3 pads per hour and if the heavier bleeding occur she needs to come into the emergency room immediately. I also explained that her cramping is g oing to be significantly greater as her uterus begins to contract to push the tissue out. I offered to do a speculum exam tonight to evaluate her cervix she has also declined this as she is had other exams today and she would prefer not to have it done. As room stated earlier she has a blood draw in her observations office tomorrow and I 5 she should call and make sure that she is able to see her physician tomorrow so that they can come up with a final plan. She will return for any heavy vaginal bleeding or severe pain or other signs or symptoms including those of hypovolemia. Past Medical History Past Medical History: No Reported History History of Any Multi-Drug Resistant Organisms: None Reported Past Surgical History: No Surgical Hx Reported Past Psychological History: Depression Smoking Status: Never smoker Past Alcohol Use History: None Reported Past Drug Use History: None Reported Medications and Allergies Home Medications Medication Instructions Recorded Confirmed Type Azo Urinary Pain Relief 2 tab PO TID PRN 07/05/18 07/05/18 History Sulfamethoxazole/Trimethoprim 1 each PO BID #10 tablet 07/05/18 Rx [Bactrim DS 800-160 mg] Ketorolac [Toradol] 10 mg PO Q6HR #12 tab 04/03/20 Rx Allergies Allergy/AdvReac Type Severity Reaction Status Date / Time nitrofurantoin Allergy Unknown Verified 04/03/20 16:44 [From [employer]] Exam Osteopathic Statement: *. No significant issues noted on an osteopathic structural exam other than those noted in the History and Physical/Consult. Vital Signs Temp Pulse Resp BP Pulse Ox 04/03/20 16:42 98.0 F 71 18 111/77 99 Intake and Output 04/03/20 04/03/20 04/03/20 06:59 14:59 22:59 Other: Weight 61.235 kg Results Result Diagrams: 04/03/20 17:58 04/03/20 17:58 Abnormal Lab Results - Last 24 Hours (Table) 04/03/20 04/03/20 Range/Units 17:58 Unknown Sodium 136 L (137-145) mmol/L BUN 5 L (7-17) mg/dL Urine Ketones 1+ H (Negative) Urine Blood Moderate H (Negative) Urine RBC 15 H (0-5) /hpf Urine Bacteria Rare H (None) /hpf Urine Mucus Rare H (None) /hpf
== END 2020-04-03 20:49 | disposition home or self-care (01) ==
LOC: EC 16:41
DX: O02.1 Missed abortion (principal); O30.001 Twin pregnancy, unspecified number of placenta and unspecified number of amniotic sacs, first trimester; Z88.3 Allergy status to other anti-infective agents; Z3A.11 11 weeks gestation of pregnancy
CPT/HCPCS: 99285; 96374; 96375 ×2; 96361; 36415; 86900; 86901; 80053; 85025; 85610; 85730; 81001; 84702; 76801; 76802; 76817; J2270; J2405; J1885; 99284

== ENCOUNTER → 2020-04-19 | Outpatient (CLI) | payer OTHER | END | disposition home or self-care (01) | LOC: LABWHC1 13:51 | PROVIDERS: ATTEND Obstetrics & Gynecology | DX: O03.9 Complete or unspecified spontaneous abortion without complication (principal) | CPT/HCPCS: 36415; 84702 ==

== ENCOUNTER 2020-05-21 21:36 | Emergency (ER) | payer OTHER ==
[2020-05-21] MEDS ORDERED: SODIUM CHLORIDE 0.9% 1,000 ML IV STA (22:05)
[2020-05-21 22:32] LABS: Appearance,Urine Clear (Clear); Bacteria,Urine Rare /hpf; Bilirubin,Urine Negative (Negative); Blood,Urine Trace (Negative); Color,Urine Light Yellow; Glucose,Urine (UA) Negative (Negative); Ketones,Urine Negative (Negative); Leukocyte Esterase,Urine Negative (Negative); Nitrite,Urine Negative (Negative); Protein,Urine Negative (Negative); RBC,Urine 2 /hpf (0-5); Specific Gravity,Urine 1.004 (1.001-1.035); Sperm,Urine Occasional /hpf; Urobilinogen,Urine <2.0 mg/dL (<2.0); WBC,Urine 1 /hpf (0-5)
[2020-05-21 22:38] LABS: Basophils # (A) 0.1 k/uL (0-0.2); Basophils % (A) 1 %; Eosinophils # (A) 0.1 k/uL (0-0.7); Eosinophils % (A) 1 %; HCT 40.4 % (34.0-46.0); HGB 13.8 gm/dL (11.4-16.0); Lymphocytes # (A) 2.5 k/uL (1.0-4.8); Lymphocytes % (A) 32 %; MCHC 34.2 g/dL (31.0-37.0); MCV 93.7 fL (80.0-100.0); Mean Platelet Volume 8.3; Monocytes # (A) 0.5 k/uL (0-1.0); Monocytes % (A) 6 %; Neutrophils # (A) 4.6 k/uL (1.3-7.7); Neutrophils % (A) 59 %; Platelet Count 235 k/uL (150-450); RBC 4.31 m/uL (3.80-5.40); RDW 12.9 % (11.5-15.5); WBC 7.8 k/uL (3.8-10.6)
[2020-05-21 22:49] LABS: ALT 11 U/L (4-34); AST 24 U/L (14-36); African American GFR (CKD) >90 (>60 ml/min/1.73 sqM); Albumin 4.7 g/dL (3.5-5.0); Alkaline Phosphatase 76 U/L (38-126); Amylase 66 U/L (30-110); Anion Gap 8 mmol/L; Blood Urea Nitrogen 8 mg/dL (7-17); Calcium 9.7 mg/dL (8.4-10.2); Carbon Dioxide 24 mmol/L (22-30); Chloride 106 mmol/L (98-107); Glucose 70 mg/dL (74-99); Non-African American GFR(CKD) >90 (>60 ml/min/1.73 sqM); Potassium 3.9 mmol/L (3.5-5.1); Sodium 138 mmol/L (137-145); Total Bilirubin 0.7 mg/dL (0.2-1.3); Total Protein 7.5 g/dL (6.3-8.2)
[2020-05-21 23:05] LABS: HCG,Quantitative Serum <2.4 mIU/mL
[2020-05-21 23:35] VITALS: RESP 16
--- NOTE | 2020-05-22 00:17 | US ---
EXAMINATION TYPE: Transabdominal DATE OF EXAM: 05/21/2020 11:54 PM COMPARISON: US CLINICAL HISTORY: retained products?. Retained products? per order. Pain x 1 day. Patient claims she miscarried 1 month ago. . EXAM PERFORMED: Transvaginal (TV) and Transabdominal (TA) EXAM MEASUREMENTS: GESTATIONAL AGE / DATING Physician Established: (17 weeks/6 days) EDC: 10/23/2020 Dates by LMP: (17 weeks/6 days) EDC: 10/23/2020 Dates by First Scan: (16 weeks/2 days) EDC: 11/03/2020. (03/15/20 ultrasound) *Twin seen on last study. Baby A CRL seen without heart tones. Baby B gestational sac seen only (04/03/20 ultrasound). Dates by Current Scan for: No IUP seen at this time. MATERNAL ANATOMY Uterus: 8.1 x 5.6 x 4.0 cm. Anteverted. Anechoic fluid-appearing area seen within cervix measurin .9 x 1.0 x 0.2 cm. Upper endometrium appears to measure 1.3 cm. Right Ovary: 4.2 x 2.2 x 2.6 cm. Measures enlarged. Anechoic area seen: 1.5 x 1.6 x 1.6 cm. Left Ovary: 3.4 x 2.6 x 2.4 cm. Anechoic area seen: 1.0 x 0.7 x 0.6 cm. Post CDS / Adnexa: Free fluid seen in CDS and within right adnexa. Presence of free fluid: Free fluid seen in CDS and within right adnexa. Presence of corpus luteal cyst: not seen GESTATION / SURVEY IUP: No sign of IUP at this time. Date of LMP: 01/17/2020 Beta HcG (if available): <2.4 IMPRESSION: The uterus is empty. There is tiny amount of endometrial fluid that measures 1 to 2 mm. I see no evid ence of retained products. Small amount of free fluid in the pelvis. Bilateral cysts on the ovaries. No solid adnexal mass.
--- NOTE | 2020-05-22 00:51 | ED ---
General Adult HPI - General Chief complaint: Abdominal Pain Stated complaint: Uterus Pains,Miscarriage Time Seen by Provider: 05/21/20 22:04 Source: patient Mode of arrival: ambulatory Limitations: no limitations - History of Present Illness Initial comments: 19-year-old female presents to the emergency department for pelvic discomfort. Patient reports that she had a miscarriage with twins about one month ago. States that she did not need any intervention and pass the material on her own. Patient reports that a couple weeks ago she had intercourse worsened her pelvic pain. Reports that over the past few days it again worsened after intercourse. States it is more on the right side at this point. Denies vaginal bleeding. Denies fevers or chills. Denies any nausea vomiting diarrhea.Patient has no other complaints at this time including shortness of breath, chest pain, abdominal pain, nausea or vomiting, headache, or visual changes. - Related Data Home Medications Medication Instructions Recorded Confirmed Azo Urinary Pain Relief 2 tab PO TID PRN 07/05/18 07/05/18 Previous Rx's Medication Instructions Recorded Sulfamethoxazole/Trimethoprim 1 each PO BID #10 tablet 07/05/18 [Bactrim DS 800-160 mg] Ketorolac [Toradol] 10 mg PO Q6HR #12 tab 04/03/20 Allergies Allergy/AdvReac Type Severity Reaction Status Date / Time nitrofurantoin Allergy Unknown Verified 05/21/20 21:58 [From Macrobid] Review of Systems ROS Statement: Those systems with pertinent positive or pertinent negative responses have been documented in the HPI. ROS Other: All systems not noted in ROS Statement are negative. Past Medical History Past Medical History: No Reported History History of Any Multi-Drug Resistant Organisms: None Reported Past Surgical History: No Surgical Hx Reported Past Psychological History: Depression Smoking Status: Never smoker Past Alcohol Use History: None Reported Past Drug Use History: None Reported General Exam Limitations: no limitations General appearance: alert, in no apparent distress Head exam: Present: atraumatic, normocephalic, normal inspection Eye exam: Present: normal appearance, PERRL, EOMI. Absent: scleral icterus, conjunctival injection, periorbital swelling ENT exam: Present: normal exam, mucous membranes moist Neck exam: Present: normal inspection, full ROM. Absent: tenderness, meningismus, lymphadenopathy Respiratory exam: Present: normal lung sounds bilaterally. Absent: respiratory distress, wheezes, rales, rhonchi, stridor Cardiovascular Exam: Present: regular rate, normal rhythm, normal heart sounds. Absent: systolic murmur, diastolic murmur, rubs, gallop, clicks GI/Abdominal exam: Present: soft, normal bowel sounds. Absent: distended, tenderness (No significant abdominal tenderness), guarding, rebound, rigid Course Vital Signs 05/21/20 05/21/20 21:55 23:34 Temperature 98.1 F Pulse Rate 76 Respiratory 18 16 Rate Blood Pressure 109/69 O2 Sat by Pulse 100 Oximetry Medical Decision Making - Medical Decision Making Vitals are stable. CBC CMP unremarkable. Physical exam is documented. Ultrasound shows an empty uterus with tiny amount of endometrial fluid. No evidence of retained products. Bilateral cysts are noted on the ovary without solid adnexal mass. Patient's pain could be secondary to ovarian cyst. At this time patient be discharged home to follow-up with primary care and [employer]. She is aware to return here if she has any worsening symptoms. - Lab Data Result diagrams: 05/21/20 22:21 05/21/20 22:21 Lab Results 05/21/20 05/21/20 05/21/20 Range/Units 22:10 22:10 22:21 WBC 7.8 (3.8-10.6) k/uL RBC 4.31 (3.80-5.40) m/uL Hgb 13.8 (11.4-16.0) gm/dL Hct 40.4 (34.0-46.0) % MCV 93.7 (80.0-100.0) fL MCH 32.0 (25.0-35.0) pg MCHC 34.2 (31.0-37.0) g/dL RDW 12.9 (11.5-15.5) % Plt Count 235 (150-450) k/uL Neutrophils % 59 % Lymphocytes % 32 % Monocytes % 6 % Eosinophils % 1 % Basophils % 1 % Neutrophils # 4.6 (1.3-7.7) k/uL Lymphocytes # 2.5 (1.0-4.8) k/uL Monocytes # 0.5 (0-1.0) k/uL Eosinophils # 0.1 (0-0.7) k/uL Basophils # 0.1 (0-0.2) k/uL Sodium (137-145) mmol/L Potassium (3.5-5.1) mmol/L Chloride (98-107) mmol/L Carbon Dioxide (22-30) mmol/L Anion Gap mmol/L BUN (7-17) mg/dL Creatinine (0.52-1.04) mg/dL Est GFR (CKD-EPI)AfAm (>60 ml/min/1.73 sqM) Est GFR (CKD-EPI)NonAf (>60 ml/min/1.73 sqM) Glucose (74-99) mg/dL Calcium (8.4-10.2) mg/dL Total Bilirubin (0.2-1.3) mg/dL AST (14-36) U/L ALT (4-34) U/L Alkaline Phosphatase (38-126) U/L Total Protein (6.3-8.2) g/dL Albumin (3.5-5.0) g/dL Amylase (30-110) U/L Lipase (23-300) U/L HCG, Quant mIU/mL Urine Color Light Yellow Urine Appearance Clear (Clear) Urine pH 6.0 (5.0-8.0) Ur Specific [place] 1.004 (1.001-1.035) Urine Protein Negative (Negative) Urine Glucose (UA) Negative (Negative) Urine Ketones Negative (Negative) Urine Blood Trace H (Negative) Urine Nitrite Negative (Negative) Urine Bilirubin Negative (Negative) Urine Urobilinogen <2.0 (<2.0) mg/dL Ur Leukocyte Esterase Negative (Negative) Urine RBC 2 (0-5) /hpf Urine WBC 1 (0-5) /hpf Urine Bacteria Rare H (None) /hpf Urine Sperm Occasional H (None) /hpf Urine HCG, Qual Not Detected (Not Detectd) 05/21/20 Range/Units 22:21 WBC (3.8-10.6) k/uL RBC (3.80-5.40) m/uL Hgb (11.4-16.0) gm/dL Hct (34.0-46.0) % MCV (80.0-100.0) fL MCH (25.0-35.0) pg MCHC (31.0-37.0) g/dL RDW (11.5-15.5) % Plt Count (150-450) k/uL Neutrophils % % Lymphocytes % % Monocytes % % Eosinophils % % Basophils % % Neutrophils # (1.3-7.7) k/uL Lymphocytes # (1.0-4.8) k/uL Monocytes # (0-1.0) k/uL Eosinophils # (0-0.7) k/uL Basophils # (0-0.2) k/uL Sodium 138 (137-145) mmol/L Potassium 3.9 (3.5-5.1) mmol/L Chloride 106 (98-107) mmol/L Carbon Dioxide 24 (22-30) mmol/L Anion Gap 8 mmol/L BUN 8 (7-17) mg/dL Creatinine 0.70 (0.52-1.04) mg/dL Est GFR (CKD-EPI)AfAm >90 (>60 ml/min/1.73 sqM) Est GFR (CKD-EPI)NonAf >90 (>60 ml/min/1.73 sqM) Glucose 70 L (74-99) mg/dL Calcium 9.7 (8.4-10.2) mg/dL Total Bilirubin 0.7 (0.2-1.3) mg/dL AST 24 (14-36) U/L ALT 11 (4-34) U/L Alkaline Phosphatase 76 (38-126) U/L Total Protein 7.5 (6.3-8.2) g/dL Albumin 4.7 (3.5-5.0) g/dL Amylase 66 (30-110) U/L Lipase 118 (23-300) U/L HCG, Quant <2.4 mIU/mL Urine Color Urine Appearance (Clear) Urine pH (5.0-8.0) Ur Specific [place] (1.001-1.035) Urine Protein (Negative) Urine Glucose (UA) (Negative) Urine Ketones (Negative) Urine Blood (Negative) Urine Nitrite (Negative) Urine Bilirubin (Negative) Urine Urobilinogen (<2.0) mg/dL Ur Leukocyte Esterase (Negative) Urine RBC (0-5) /hpf Urine WBC (0-5) /hpf Urine Bacteria (None) /hpf Urine Sperm (None) /hpf Urine HCG, Qual (Not Detectd) Disposition Clinical Impression: Pelvic pain, Ovarian cyst Disposition: HOME SELF-CARE Condition: Good Instructions (If sedation given, give patient instructions): Ovarian Cyst (ED) Additional Instructions: Please take Motrin and Tylenol for pain. Please follow-up with primary care in 1-2 days as well as [employer]. If you have worsening symptoms return here to the emergency room. Is patient prescribed a controlled substance at d/c from ED?: No Referrals: Ellen Skaggs MD [REFERRING] - 1-2 days Time of Disposition: 00:51
[2020-05-22 01:14] VITALS: BP 104/77; PULSE 60; TEMP 97.6
== END 2020-05-22 01:14 | disposition home or self-care (01) ==
LOC: EC 21:36
DX: N83.201 Unspecified ovarian cyst, right side (principal); N83.202 Unspecified ovarian cyst, left side; Z88.1 Allergy status to other antibiotic agents
CPT/HCPCS: 36415; 76801; 76817; 80053; 81001; 81025; 82150; 83690; 84702; 85025; 96360; 96361; 99284

== ENCOUNTER 2020-07-02 10:15 | Emergency (ER) | payer OTHER ==
--- NOTE | 2020-07-02 11:02 | ED ---
General Adult HPI - General Chief complaint: Abdominal Pain Stated complaint: ovarian cyst Time Seen by Provider: 07/02/20 10:38 Source: patient, RN notes reviewed, old records reviewed Mode of arrival: ambulatory Limitations: no limitations - History of Present Illness Initial comments: 19-year-old female patient past medical history of spontaneous in January presents to ED for evaluation of lots of pressure and discomfort in the uterus. Patient reports has been ongoing for about 2 months over the pain has been getting worse. She reports her last menstrual period was in April and they have been irregular since her missed . Denies any dysuria or any concern for STI's. Denies any other acute complaints at this time. Systemic: Pt denies fatigue, fever/chills, rash. Pt denies weakness, night sweats, weight loss. Neuro: Pt denies headache, visual disturbances, syncope or pre-syncope. HEENT: Pt denies ocular discharge or irritation, otalgia, rhinorrhea, pharyngitis or notable lymphadenopathy. Cardiopulmonary: Pt denies chest pain, SOB, heart palpitations, dyspnea on exertion. Abdominal/GI: Pt denies abdominal pain, n/v/d. : Pt denies dysuria, burning w/ urination, frequency/urgency. Denies new onset urinary or bowel incontinence. MSK: Pt denies myalgia, loss of strength or function in extremities. Neuro: Pt denies new onset weakness, paresthesias. - Related Data Home Medications Medication Instructions Recorded Confirmed No Known Home Medications 07/02/20 07/02/20 Allergies Allergy/AdvReac Type Severity Reaction Status Date / Time nitrofurantoin Allergy Unknown Verified 05/21/20 21:58 [From Macrobid] Review of Systems ROS Statement: Those systems with pertinent positive or pertinent negative responses have been documented in the HPI. ROS Other: All systems not noted in ROS Statement are negative. Past Medical History Past Medical History: No Reported History History of Any Multi-Drug Resistant Organisms: None Reported Past Surgical History: No Surgical Hx Reported Past Psychological History: Depression Smoking Status: Never smoker Past Alcohol Use History: Occasional Past Drug Use History: None Reported General Exam - General Exam Comments Initial Comments: Constitutional: NAD, AOX3, Pt has pleasant affect. HEENT: NC/AT, trachea midline, neck supple, no lymphadenopathy. External ears appear normal, without discharge. Mucous membranes moist. Eyes PERRLA, EOM intact. There is no scleral icterus. No pallor noted. Cardiopulmonary: RRR, no murmurs, rubs or gallops, no JVD noted. Lungs CTAB in anterior and posterior villalta. No peripheral edema. Abdominal exam: Abdomen soft and non-distended. Abdomen non-tender to palpation in all 4 quadrants. Bowel sounds active in LLQ. No hepatosplenomegaly. No ecchymosis Neuro: CN II-XII grossly intact. No nuchal rigidity. MSK: Full active ROM in upper and lower extremities Limitations: no limitations Course Vital Signs 07/02/20 07/02/20 10:30 11:35 Temperature 98.3 F Pulse Rate 67 Respiratory 19 18 Rate Blood Pressure 114/75 O2 Sat by Pulse 100 Oximetry Medical Decision Making - Medical Decision Making 19-year-old female patient past medical history of spontaneous in January presents to ED for evaluation of lots of pressure and discomfort in the uterus. Patient reports has been ongoing for about 2 months over the pain has been getting worse. She reports her last menstrual period was in April and they have been irregular since her missed . Denies any dysuria or any concern for STI's. Denies any other acute complaints at this time. Patient felt other stable, afebrile. Physical exam displayed nontender abdomen. UA displayed moderate blood tendered blood cells. HCG negative. Transvaginal ultrasound displayed tiny amount of free fluid in the pelvis cul-de-sac, no suspicious adnexal masses, good arterial and venous flow to the ovaries. Patient started her menses while in the ED. Patient will be discharged, will follow up with PCP tomorrow and will return to ED with any worsening symptoms. Case discussed with Dr. Scott. - Lab Data Lab Results 07/02/20 07/02/20 Range/Units 12:20 12:20 Urine Color Yellow Urine Appearance Cloudy H (Clear) Urine pH 6.0 (5.0-8.0) Ur Specific [place] 1.015 (1.001-1.035) Urine Protein Negative (Negative) Urine Glucose (UA) Negative (Negative) Urine Ketones Trace H (Negative) Urine Blood Moderate H (Negative) Urine Nitrite Negative (Negative) Urine Bilirubin Negative (Negative) Urine Urobilinogen <2.0 (<2.0) mg/dL Ur Leukocyte Esterase Negative (Negative) Urine RBC 10 H (0-5) /hpf Urine WBC 1 (0-5) /hpf Ur Squamous Epith Cells 1 (0-4) /hpf Urine Mucus Rare H (None) /hpf Urine HCG, Qual Not Detected (Not Detectd) Disposition Clinical Impression: Menses, irregular Disposition: HOME SELF-CARE Condition: Stable Instructions (If sedation given, give patient instructions): Dysmenorrhea (ED) Additional Instructions: follow-up with primary care provider tomorrow. Return to ER if any worsening symptoms. Is patient prescribed a controlled substance at d/c from ED?: No Referrals: None,Stated [Primary Care Provider] - 1-2 days Christo Hi MD [REFERRING] - 1-2 days Jose A Patel [STAFF PHYSICIAN] - 1-2 days
--- NOTE | 2020-07-02 11:58 | US ---
EXAMINATION TYPE: US transvaginal DATE OF EXAM: 07/02/2020 COMPARISON: NONE CLINICAL HISTORY: pelvic pain . Pain hx of cysts TECHNIQUE: Transvaginal (TV). EXAM MEASUREMENTS: Uterus: 7.7 x 3.5 x 5.4 cm Endometrial Stripe: .8 cm Right Ovary: 3.8 x 2.3 x 2.6 cm Left Ovary: 3.2 x 2.1 x 2.0 cm 1. Uterus: Anteverted wnl 2. Endometrium: wnl 3. Right Ovary: Follicles seen. 4. Left Ovary: Follicles seen. Spectral, color and waveform doppler imaging shows good arterial and venous flow within the ovaries ; . 5. Bilateral Adnexa: wnl 6. Posterior cul-de-sac: Small amount of fluid seen. Heterogeneous uterus. Tiny amount free fluid in pelvis on last image saved. Last known menstrual livia od not provided or documented. Both ovaries seen with scattered follicles. IMPRESSION: Tiny amount of free fluid in pelvic cul-de-sac, nonspecific finding. No suspicious adnexa l masses are seen.
[2020-07-02 12:05] VITALS: RESP 18
[2020-07-02 12:47] LABS: Appearance,Urine Cloudy (Clear); Bilirubin,Urine Negative (Negative); Blood,Urine Moderate (Negative); Color,Urine Yellow; Glucose,Urine (UA) Negative (Negative); Ketones,Urine Trace (Negative); Leukocyte Esterase,Urine Negative (Negative); Mucus,Urine Rare /hpf; Nitrite,Urine Negative (Negative); Protein,Urine Negative (Negative); RBC,Urine 10 /hpf (0-5); Specific Gravity,Urine 1.015 (1.001-1.035); Squamous Epithelial Cell,Urine 1 /hpf (0-4); Urobilinogen,Urine <2.0 mg/dL (<2.0); WBC,Urine 1 /hpf (0-5)
[2020-07-02 13:16] VITALS: BP 124/79; PULSE 66; TEMP 98.1
== END 2020-07-02 13:16 | disposition home or self-care (01) ==
LOC: EC 10:15
DX: N92.6 Irregular menstruation, unspecified (principal); Z88.1 Allergy status to other antibiotic agents; Z87.59 Personal history of other complications of pregnancy, childbirth and the puerperium
CPT/HCPCS: 76830; 81001; 81025; 93975; 99284

== ENCOUNTER 2020-09-07 08:48 | Emergency (ER) | payer OTHER ==
--- NOTE | 2020-09-07 09:47 | ED ---
Female Urogenital HPI - General Chief complaint: Urogenital Stated complaint: 5wks preg - infection Time Seen by Provider: 09/07/20 09:15 Source: patient, RN notes reviewed Mode of arrival: ambulatory Limitations: no limitations - History of Present Illness Initial comments: This a 19-year-old female presents to the emergency Department with chief compl aint of vaginal discharge. She states she's had strep several weeks. Patient states that she was seen at [facility] was told having was normal. She states she has pain with intercourse and states that increasing discharge. Patient is currently 5 weeks with no complaints of her including abdominal pain, vaginal bleeding patient is states that she has an appointment scheduled with [facility]. Patient has no concerns for STDs. Patient has no dysuria no hematuria-like pain - Related Data Previous Rx's Medication Instructions Recorded Clotrimazole [Clotrimazole 2% (3 1 applicator VAGINAL HS #21 gm 09/07/20 day)] Allergies Allergy/AdvReac Type Severity Reaction Status Date / Time nitrofurantoin Allergy Unknown Verified 09/07/20 10:33 [From TripletPlusbid] Review of Systems ROS Statement: Those systems with pertinent positive or pertinent negative responses have been documented in the HPI. ROS Other: All systems not noted in ROS Statement are negative. Past Medical History Past Medical History: No Reported History History of Any Multi-Drug Resistant Organisms: None Reported Past Surgical History: No Surgical Hx Reported Past Psychological History: Depression Smoking Status: Never smoker Past Alcohol Use History: Occasional Past Drug Use History: None Reported General Exam Limitations: no limitations General appearance: alert, in no apparent distress Head exam: Present: atraumatic, normocephalic, normal inspection Eye exam: Present: normal appearance, PERRL, EOMI. Absent: scleral icterus, conjunctival injection, periorbital swelling Respiratory exam: Present: normal lung sounds bilaterally. Absent: respiratory distress, wheezes, rales, rhonchi, stridor Cardiovascular Exam: Present: regular rate, normal rhythm, normal heart sounds. Absent: systolic murmur, diastolic murmur, rubs, gallop, clicks GI/Abdominal exam: Present: soft, normal bowel sounds. Absent: distended, tenderness, guarding, rebound, rigid External exam: Present: normal external exam Speculum exam: Present: vaginal discharge By manual exam: Present: normal by manual exam Back exam: Absent: CVA tenderness (R), CVA tenderness (L) Neurological exam: Present: alert, oriented X3 Skin exam: Present: warm, dry, intact, normal color. Absent: rash Course Vital Signs 09/07/20 09:00 Temperature 98.7 F Pulse Rate 86 Respiratory 18 Rate Blood Pressure 110/68 O2 Sat by Pulse 98 Oximetry Medical Decision Making - Medical Decision Making 19-year-old female presented for vaginal discharge urinalysis unremarkable. Patient does have copious amount of white discharge. Patient we treated for yeast infection. Patient be discharged cultures were performed. - Lab Data Lab Results 09/07/20 Range/Units 09:28 Urine Color Light Yellow Urine Appearance Clear (Clear) Urine pH 6.0 (5.0-8.0) Ur Specific [place] 1.009 (1.001-1.035) Urine Protein Negative (Negative) Urine Glucose (UA) Negative (Negative) Urine Ketones 1+ H (Negative) Urine Blood Negative (Negative) Urine Nitrite Negative (Negative) Urine Bilirubin Negative (Negative) Urine Urobilinogen <2.0 (<2.0) mg/dL Ur Leukocyte Esterase Negative (Negative) Disposition Clinical Impression: Vaginal Discharge, Vaginal candidiasis Disposition: HOME SELF-CARE Condition: Stable Instructions (If sedation given, give patient instructions): Yeast Infection (ED) Additional Instructions: Please return to the Emergency Department if symptoms worsen or any other concerns. Prescriptions: Clotrimazole [Clotrimazole 2% (3 day)] 1 applicator VAGINAL HS #21 gm Is patient prescribed a controlled substance at d/c from ED?: No Referrals: None,Stated [Primary Care Provider] - 1-2 days Time of Disposition: 11:09
[2020-09-07 09:51] LABS: Appearance,Urine Clear (Clear); Bilirubin,Urine Negative (Negative); Blood,Urine Negative (Negative); Color,Urine Light Yellow; Glucose,Urine (UA) Negative (Negative); Ketones,Urine 1+ (Negative); Leukocyte Esterase,Urine Negative (Negative); Nitrite,Urine Negative (Negative); Protein,Urine Negative (Negative); Specific Gravity,Urine 1.009 (1.001-1.035); Urobilinogen,Urine <2.0 mg/dL (<2.0)
[2020-09-07 11:50] VITALS: BP 113/76; PULSE 84; RESP 16; TEMP 98.8
== END 2020-09-07 11:50 | disposition home or self-care (01) ==
LOC: EC 08:48
DX: O98.811 Other maternal infectious and parasitic diseases complicating pregnancy, first trimester (principal); B37.3 Candidiasis of vulva and vagina; O99.891 Other specified diseases and conditions complicating pregnancy; N89.8 Other specified noninflammatory disorders of vagina; Z3A.01 Less than 8 weeks gestation of pregnancy; Z88.1 Allergy status to other antibiotic agents
CPT/HCPCS: 81003; 87070; 87491; 87591; 87808; 99283

== ENCOUNTER 2020-10-01 13:53 | Emergency (ER) | payer OTHER ==
[2020-10-01 14:14] VITALS: BP 115/72; PULSE 102; RESP 18; TEMP 97.7
[2020-10-01 14:33] LABS: Appearance,Urine Turbid (Clear); Bacteria,Urine Rare /hpf; Bilirubin,Urine Negative (Negative); Blood,Urine Negative (Negative); Color,Urine Yellow; Glucose,Urine (UA) Negative (Negative); Ketones,Urine Trace (Negative); Leukocyte Esterase,Urine Small (Negative); Nitrite,Urine Negative (Negative); PH, Urine 7.5 (5.0-8.0); Protein,Urine Negative (Negative); RBC,Urine 7 /hpf (0-5); Specific Gravity,Urine 1.016 (1.001-1.035); Squamous Epithelial Cell,Urine 4 /hpf (0-4); Urobilinogen,Urine <2.0 mg/dL (<2.0); WBC,Urine 7 /hpf (0-5)
[2020-10-01] MEDS ORDERED: CEPHALEXIN 500MG STARTER PACK 4 CAP BTL PO STA (15:39)
--- NOTE | 2020-10-01 16:02 | ED ---
General Adult HPI - General Chief complaint: Vaginal Bleeding Stated complaint: Vaginal Bleeding, 9 Wks Preg Time Seen by Provider: 10/01/20 15:28 Source: patient Mode of arrival: ambulatory Limitations: no limitations - History of Present Illness Initial comments: 19-year-old female presenting today for chief complaint of spotting and cramping in . Patient states that her last period was at the beginning of July. She states later in July a few weeks later she had a positive test. Patient states that she has set up an [employer] appointment and has been evaluated by Dr. Escobar. Patient states that her initial ultrasound was at a clinic she states that she was told she was having twins. Patient states that the spotting for the past 3-4 days has been very light in color more so pink no heavy bright red bleeding. Patient states she has mild cramping. She states she's had some discharges from present throughout the however she has had STI testing twice she states that she has not had any known positives and has been treated vaginally for bacterial vaginosis. Patient denies any dysuria urgency frequency. She denies fevers or flank pain. Patient denies any known past medical history denies additional complaints patient states she was concerned with the spotting persisted for the fourth day and came to the ER for further evaluation. - Related Data Previous Rx's Medication Instructions Recorded Clotrimazole [Clotrimazole 2% (3 1 applicator VAGINAL HS #21 gm 09/07/20 day)] Cephalexin [Keflex] 500 mg PO Q6HR 5 Days #20 cap 10/01/20 Allergies Allergy/AdvReac Type Severity Reaction Status Date / Time nitrofurantoin Allergy Unknown Verified 10/01/20 14:14 [From Macrobid] Review of Systems ROS Statement: Those systems with pertinent positive or pertinent negative responses have been documented in the HPI. ROS Other: All systems not noted in ROS Statement are negative. Past Medical History Past Medical History: No Reported History History of Any Multi-Drug Resistant Organisms: None Reported Past Surgical History: No Surgical Hx Reported Past Psychological History: Depression Smoking Status: Never smoker Past Alcohol Use History: Occasional Past Drug Use History: None Reported General Exam - General Exam Comments Initial Comments: General: The patient is awake and alert, in no distress, and does not appear acutely ill. Eye: Pupils are equal, round and reactive to light, extra-ocular movements are intact. No nystagmus. There is normal conjunctiva bilaterally. No signs of icterus. D. Cardiovascular: There is a regular rate and rhythm. No murmur, rub or gallop is appreciated. Respiratory: Lungs are clear to auscultation, respirations are non-labored, breath sounds are equal. No wheezes, stridor, rales, or rhonchi. Gastrointestinal: Soft, non-distended, non-tender abdomen without masses or organomegaly noted. There is no rebound or guarding present. Pelvic: refused pelvic-states had two previous and thinks bleeding is minimal Musculoskeletal: Normal ROM, no tenderness. Strength 5/5. Sensation intact. Pulses equal bilaterally 2+. Neurological: A&O x 3. CN II-XII intact grossly, There are no obvious motor or sensory deficits. Coordination appears grossly intact. Speech is normal. Skin: Skin is warm and dry and no rashes or lesions are noted. Psychiatric: Cooperative, appropriate mood & affect, normal judgment. Limitations: no limitations Course Vital Signs 10/01/20 14:10 Temperature 97.7 F Pulse Rate 102 H Respiratory 18 Rate Blood Pressure 115/72 O2 Sat by Pulse 99 Oximetry Medical Decision Making - Medical Decision Making HCG elevated. twin no complication. Small subchorionic noted. Patient states she has minimal bleeding some mild cramping. ABO/RH does not require rhogam. pt refused pelvic. has outpatient obgyn care. will treat bacteria in urine. pt discharged appearing well. dr wang agreeable to care plan. - Lab Data Result diagrams: 10/01/20 16:05 10/01/20 16:05 Lab Results 10/01/20 10/01/20 10/01/20 Range/Units 14:16 14:16 16:05 WBC 4.2 (3.8-10.6) k/uL RBC 4.16 (3.80-5.40) m/uL Hgb 12.9 (11.4-16.0) gm/dL Hct 38.2 (34.0-46.0) % MCV 91.9 (80.0-100.0) fL MCH 31.0 (25.0-35.0) pg MCHC 33.7 (31.0-37.0) g/dL RDW 13.0 (11.5-15.5) % Plt Count 184 (150-450) k/uL MPV 7.9 Neutrophils % 69 % Lymphocytes % 23 % Monocytes % 7 % Eosinophils % 0 % Basophils % 1 % Neutrophils # 2.9 (1.3-7.7) k/uL Lymphocytes # 1.0 (1.0-4.8) k/uL Monocytes # 0.3 (0-1.0) k/uL Eosinophils # 0.0 (0-0.7) k/uL Basophils # 0.0 (0-0.2) k/uL Sodium (137-145) mmol/L Potassium (3.5-5.1) mmol/L Chloride (98-107) mmol/L Carbon Dioxide (22-30) mmol/L Anion Gap mmol/L BUN (7-17) mg/dL Creatinine (0.52-1.04) mg/dL Est GFR (CKD-EPI)AfAm (>60 ml/min/1.73 sqM) Est GFR (CKD-EPI)NonAf (>60 ml/min/1.73 sqM) Glucose (74-99) mg/dL Calcium (8.4-10.2) mg/dL Total Bilirubin (0.2-1.3) mg/dL AST (14-36) U/L ALT (4-34) U/L Alkaline Phosphatase (38-126) U/L Total Protein (6.3-8.2) g/dL Albumin (3.5-5.0) g/dL HCG, Quant mIU/mL Urine Color Yellow Urine Appearance Turbid H (Clear) Urine pH 7.5 (5.0-8.0) Ur Specific [place] 1.016 (1.001-1.035) Urine Protein Negative (Negative) Urine Glucose (UA) Negative (Negative) Urine Ketones Trace H (Negative) Urine Blood Negative (Negative) Urine Nitrite Negative (Negative) Urine Bilirubin Negative (Negative) Urine Urobilinogen <2.0 (<2.0) mg/dL Ur Leukocyte Esterase Small H (Negative) Urine RBC 7 H (0-5) /hpf Urine WBC 7 H (0-5) /hpf Urine WBC Clumps Many H (None) /hpf Ur Squamous Epith Cells 4 (0-4) /hpf Urine Bacteria Rare H (None) /hpf Urine HCG, Qual Detected (Not Detectd) Blood Type Blood Type Recheck Bld Type Recheck Status 10/01/20 10/01/20 Range/Units 16:05 16:05 WBC (3.8-10.6) k/uL RBC (3.80-5.40) m/uL Hgb (11.4-16.0) gm/dL Hct (34.0-46.0) % MCV (80.0-100.0) fL MCH (25.0-35.0) pg MCHC (31.0-37.0) g/dL RDW (11.5-15.5) % Plt Count (150-450) k/uL MPV Neutrophils % % Lymphocytes % % Monocytes % % Eosinophils % % Basophils % % Neutrophils # (1.3-7.7) k/uL Lymphocytes # (1.0-4.8) k/uL Monocytes # (0-1.0) k/uL Eosinophils # (0-0.7) k/uL Basophils # (0-0.2) k/uL Sodium 135 L (137-145) mmol/L Potassium 4.1 (3.5-5.1) mmol/L Chloride 106 (98-107) mmol/L Carbon Dioxide 20 L (22-30) mmol/L Anion Gap 9 mmol/L BUN 6 L (7-17) mg/dL Creatinine 0.57 (0.52-1.04) mg/dL Est GFR (CKD-EPI)AfAm >90 (>60 ml/min/1.73 sqM) Est GFR (CKD-EPI)NonAf >90 (>60 ml/min/1.73 sqM) Glucose 86 (74-99) mg/dL Calcium 9.4 (8.4-10.2) mg/dL Total Bilirubin 0.4 (0.2-1.3) mg/dL AST 20 (14-36) U/L ALT 12 (4-34) U/L Alkaline Phosphatase 44 (38-126) U/L Total Protein 7.2 (6.3-8.2) g/dL Albumin 4.1 (3.5-5.0) g/dL HCG, Quant >532477.0 mIU/mL Urine Color Urine Appearance (Clear) Urine pH (5.0-8.0) Ur Specific [place] (1.001-1.035) Urine Protein (Negative) Urine Glucose (UA) (Negative) Urine Ketones (Negative) Urine Blood (Negative) Urine Nitrite (Negative) Urine Bilirubin (Negative) Urine Urobilinogen (<2.0) mg/dL Ur Leukocyte Esterase (Negative) Urine RBC (0-5) /hpf Urine WBC (0-5) /hpf Urine WBC Clumps (None) /hpf Ur Squamous Epith Cells (0-4) /hpf Urine Bacteria (None) /hpf Urine HCG, Qual (Not Detectd) Blood Type O Positive Blood Type Recheck O Pos Bld Type Recheck Status No Disposition Clinical Impression: Subchorionic bleed, Vaginal bleeding during Disposition: HOME SELF-CARE Condition: Good Additional Instructions: Please use medication as discussed. Please follow-up with OBGYN in next week. Please return to emergency room if the symptoms increase or worsen or for any other concerns. Prescriptions: Cephalexin [Keflex] 500 mg PO Q6HR 5 Days #20 cap Is patient prescribed a controlled substance at d/c from ED?: No Referrals: Nonstaff,Physician [Primary Care Provider] - 1-2 days Time of Disposition: 17:02
[2020-10-01 16:13] LABS: Basophils % (A) 1 %; Eosinophils % (A) 0 %; HCT 38.2 % (34.0-46.0); HGB 12.9 gm/dL (11.4-16.0); Lymphocytes % (A) 23 %; MCHC 33.7 g/dL (31.0-37.0); MCV 91.9 fL (80.0-100.0); Mean Platelet Volume 7.9; Monocytes # (A) 0.3 k/uL (0-1.0); Monocytes % (A) 7 %; Neutrophils # (A) 2.9 k/uL (1.3-7.7); Neutrophils % (A) 69 %; Platelet Count 184 k/uL (150-450); RBC 4.16 m/uL (3.80-5.40); WBC 4.2 k/uL (3.8-10.6)
[2020-10-01 16:23] LABS: ALT 12 U/L (4-34); AST 20 U/L (14-36); African American GFR (CKD) >90 (>60 ml/min/1.73 sqM); Albumin 4.1 g/dL (3.5-5.0); Alkaline Phosphatase 44 U/L (38-126); Anion Gap 9 mmol/L; Blood Urea Nitrogen 6 mg/dL (7-17); Calcium 9.4 mg/dL (8.4-10.2); Carbon Dioxide 20 mmol/L (22-30); Chloride 106 mmol/L (98-107); Glucose 86 mg/dL (74-99); Non-African American GFR(CKD) >90 (>60 ml/min/1.73 sqM); Potassium 4.1 mmol/L (3.5-5.1); Sodium 135 mmol/L (137-145); Total Bilirubin 0.4 mg/dL (0.2-1.3); Total Protein 7.2 g/dL (6.3-8.2)
--- NOTE | 2020-10-01 16:56 | US ---
EXAMINATION TYPE: US OB <= 14 wk twins DATE OF EXAM: 10/01/2020 COMPARISON: NONE CLINICAL HISTORY: bleeding. EXAM PERFORMED: Transabdominal (TA) EXAM MEASUREMENTS: GESTATIONAL AGE / DATING Physician Established: Not yet established Dates by LMP: LMP unknown Dates by First Scan: No previous this is first scan Dates by Current Scan for Baby A: ( 8 weeks/ da ys)0 EDC: 05/13/21 Dates by Current Scan for Baby B: ( 8 weeks/0 days) EDC: 05/13/21 MATERNAL ANATOMY Uterus: 10.5 x 7.6 x 7.7cm Right Ovary: 3.7 x 2.0 x 2.4cm Left Ovary: 2.5 x 1.9 x 1.8cm Post CDS / Adnexa: wnl Presence of free fluid: no Presence of possible corpus luteal cyst measuring 2.4 x 1.6 x 2.4cm Presence of subchorionic bleed measuring 1.6 x 0.9 x 0.9cm Presence of two separate gestational sacs: GESTATION / SURVEY TWIN A CRL: 1.6 (8wks/0days) Yolk Sac (normal less than 6mm): 3mm Heart Rate: 175 bpm Rhythm: Normal IUP: Viable IUP TWIN B CRL: 1.7 (8wks0/days) Yolk Sac (normal less than 6mm): 3mm Heart Rate: 179 bpm Rhythm: Normal IUP: Viable IUP Date of LMP: unkown Beta HcG (if available): not available IMPRESSION: There is a thick septum the gestational sacs. This is consistent with dichorionic diamniot ic twin gestation. Very small subchorionic hemorrhage.
[2020-10-01 17:37] LABS: HCG,Quantitative Serum >225000.0 mIU/mL
== END 2020-10-01 17:32 | disposition home or self-care (01) ==
LOC: EC 13:53
DX: O46.91 Antepartum hemorrhage, unspecified, first trimester (principal); R82.71 Bacteriuria; Z3A.09 9 weeks gestation of pregnancy; Z88.1 Allergy status to other antibiotic agents
CPT/HCPCS: 36415; 76801; 76802; 80053; 81001; 81025; 84702; 85025; 86900; 86901; 99284

== ENCOUNTER 2020-10-15 19:16 | Emergency (ER) | payer OTHER ==
[2020-10-15] MEDS ORDERED: SODIUM CHLORIDE 0.9% 1,000 ML IV STA (19:41)
--- NOTE | 2020-10-15 19:46 | ED ---
General Adult HPI - General Chief complaint: Syncope Stated complaint: Syncope, 10 weeks preg w twins Time Seen by Provider: 10/15/20 19:33 Source: patient Mode of arrival: ambulatory Limitations: no limitations - History of Present Illness Initial comments: 19-year-old female patient presents to the emergency department today for evaluation after having a syncopal episode. Patient states that she was at work she felt discomfort to the left upper abdomen, states she lost hearing then her vision and she fell backwards. She denies any injuries from the fall. States she was only out for a few seconds. States that she is currently experiencing no symptoms. Denies any injury from the fall. Has no headache, blurred vision, double vision. Denies any chest pain or shortness of breath. Denies any recent nausea, vomiting, or diarrhea. Denies any recent fever or chills. States that just prior to the episode she did become hot and sweaty. Denies any abdominal discomfort. Denies any abnormal vaginal bleeding or discharge. States she is 10 weeks with twins. She is currently awaiting appointment with [facility]S COUNTERPERSON at [facility]. She is . Patient denies any recent rash, cough, constipation, back pain, numbness, tingling, hematuria, dysuria, urinary urgency, urinary frequency, visual changes, or any other complaints. - Related Data Home Medications Medication Instructions Recorded Confirmed Pnv No.95/Ferrous Fum/Folic AC 1 tab PO HS 10/15/20 10/15/20 [ Multivitamin Tablet] Previous Rx's Medication Instructions Recorded Cephalexin [Keflex] 500 mg PO Q6H #28 cap 10/15/20 Allergies Allergy/AdvReac Type Severity Reaction Status Date / Time nitrofurantoin Allergy Unknown Verified 10/15/20 22:12 [From Macrobid] Review of Systems ROS Statement: Those systems with pertinent positive or pertinent negative responses have been documented in the HPI. ROS Other: All systems not noted in ROS Statement are negative. Past Medical History Past Medical History: No Reported History History of Any Multi-Drug Resistant Organisms: None Reported Past Surgical History: No Surgical Hx Reported Past Psychological History: Depression Smoking Status: Never smoker Past Alcohol Use History: Occasional Past Drug Use History: None Reported General Exam Limitations: no limitations General appearance: alert, in no apparent distress, other (Physical well- developed, well-nourished adult female patient in no acute distress. Vital signs upon presentation are temperature 98.1F, pulse 86, respirations 20, blood pressure 114/75, pulse ox 100% on room air.) Eye exam: Present: normal appearance, PERRL, EOMI. Absent: scleral icterus, conjunctival injection, periorbital swelling ENT exam: Present: normal exam, normal oropharynx, mucous membranes moist Respiratory exam: Present: normal lung sounds bilaterally. Absent: respiratory distress, wheezes, rales, rhonchi, stridor Cardiovascular Exam: Present: regular rate, normal rhythm, normal heart sounds. Absent: systolic murmur, diastolic murmur, rubs, gallop, clicks GI/Abdominal exam: Present: soft, normal bowel sounds. Absent: distended, tenderness, guarding, rebound, rigid Neurological exam: Present: alert, oriented X3, CN II-XII intact Psychiatric exam: Present: normal affect, normal mood Skin exam: Present: warm, dry, intact, normal color. Absent: rash Course Vital Signs 10/15/20 10/15/20 10/15/20 19:18 21:32 22:48 Temperature 98.1 F 98.1 F 98.0 F Pulse Rate 86 87 88 Respiratory 20 18 18 Rate Blood Pressure 114/75 114/69 106/67 O2 Sat by Pulse 100 100 98 Oximetry EKG Findings - EKG Comments: EKG Findings:: EKG obtained in 195 shows normal sinus rhythm with ventricular rate of 88, NE interval of 124, QRS duration 76, QT 360, QTC 435. No evidence of ST elevation or depression. Medical Decision Making - Medical Decision Making 19-year-old female patient presents to the emergency department today for evaluation after having a syncopal episode. Physical examination is unremarkable. She is neurologically intact with no focal deficits. EKG showed normal sinus rhythm. Labs reviewed and are unremarkable. Urinalysis did show sign of urinary tract infection, this has been sent for culture. She was given the Rocephin. Ultrasound was obtained as labor and delivery nurse was unable to find pulse heart rates. Ultrasound was unremarkable and did show satisfactory heart rates of both babies at 168. Patient was given IV fluids. Upon reevaluation she is resting comfortably. Currently experiencing no symptoms. She will be discharged to follow-up with her roll forger and primary care physician for recheck in 1-2 days. Return parameters were discussed in detail. She verbalizes understanding and agrees with this plan. - Lab Data Result diagrams: 10/15/20 20:15 10/15/20 20:15 Lab Results 10/15/20 10/15/20 10/15/20 Range/Units 20:15 20:15 20:15 WBC 8.8 (3.8-10.6) k/uL RBC 3.90 (3.80-5.40) m/uL Hgb 12.8 (11.4-16.0) gm/dL Hct 35.8 (34.0-46.0) % MCV 91.8 (80.0-100.0) fL MCH 33.0 (25.0-35.0) pg MCHC 35.9 (31.0-37.0) g/dL RDW 12.6 (11.5-15.5) % Plt Count 188 (150-450) k/uL MPV 8.3 Neutrophils % 80 % Lymphocytes % 15 % Monocytes % 4 % Eosinophils % 0 % Basophils % 0 % Neutrophils # 7.0 (1.3-7.7) k/uL Lymphocytes # 1.3 (1.0-4.8) k/uL Monocytes # 0.3 (0-1.0) k/uL Eosinophils # 0.0 (0-0.7) k/uL Basophils # 0.0 (0-0.2) k/uL PT 9.5 (9.0-12.0) sec INR 0.9 (<1.2) APTT 26.9 (22.0-30.0) sec Sodium (137-145) mmol/L Potassium (3.5-5.1) mmol/L Chloride (98-107) mmol/L Carbon Dioxide (22-30) mmol/L Anion Gap mmol/L BUN (7-17) mg/dL Creatinine (0.52-1.04) mg/dL Est GFR (CKD-EPI)AfAm (>60 ml/min/1.73 sqM) Est GFR (CKD-EPI)NonAf (>60 ml/min/1.73 sqM) Glucose (74-99) mg/dL Calcium (8.4-10.2) mg/dL Magnesium (1.6-2.3) mg/dL Total Bilirubin (0.2-1.3) mg/dL AST (14-36) U/L ALT (4-34) U/L Alkaline Phosphatase (38-126) U/L Troponin I (0.000-0.034) ng/mL Total Protein (6.3-8.2) g/dL Albumin (3.5-5.0) g/dL Urine Color Yellow Urine Appearance Cloudy H (Clear) Urine pH 6.0 (5.0-8.0) Ur Specific [place] 1.019 (1.001-1.035) Urine Protein Trace H (Negative) Urine Glucose (UA) Negative (Negative) Urine Ketones 1+ H (Negative) Urine Blood Trace H (Negative) Urine Nitrite Negative (Negative) Urine Bilirubin Negative (Negative) Urine Urobilinogen 8.0 (<2.0) mg/dL Ur Leukocyte Esterase Large H (Negative) Urine RBC 10 H (0-5) /hpf Urine WBC 25 H (0-5) /hpf Ur Squamous Epith Cells 7 H (0-4) /hpf Urine Bacteria Rare H (None) /hpf Hyaline Casts 1 (0-2) /lpf Urine Mucus Moderate H (None) /hpf 10/15/20 10/15/20 Range/Units 20:15 20:15 WBC (3.8-10.6) k/uL RBC (3.80-5.40) m/uL Hgb (11.4-16.0) gm/dL Hct (34.0-46.0) % MCV (80.0-100.0) fL MCH (25.0-35.0) pg MCHC (31.0-37.0) g/dL RDW (11.5-15.5) % Plt Count (150-450) k/uL MPV Neutrophils % % Lymphocytes % % Monocytes % % Eosinophils % % Basophils % % Neutrophils # (1.3-7.7) k/uL Lymphocytes # (1.0-4.8) k/uL Monocytes # (0-1.0) k/uL Eosinophils # (0-0.7) k/uL Basophils # (0-0.2) k/uL PT (9.0-12.0) sec INR (<1.2) APTT (22.0-30.0) sec Sodium 134 L (137-145) mmol/L Potassium 4.2 (3.5-5.1) mmol/L Chloride 105 (98-107) mmol/L Carbon Dioxide 20 L (22-30) mmol/L Anion Gap 9 mmol/L BUN 8 (7-17) mg/dL Creatinine 0.62 (0.52-1.04) mg/dL Est GFR (CKD-EPI)AfAm >90 (>60 ml/min/1.73 sqM) Est GFR (CKD-EPI)NonAf >90 (>60 ml/min/1.73 sqM) Glucose 81 (74-99) mg/dL Calcium 9.6 (8.4-10.2) mg/dL Magnesium 2.0 (1.6-2.3) mg/dL Total Bilirubin 0.6 (0.2-1.3) mg/dL AST 22 (14-36) U/L ALT 11 (4-34) U/L Alkaline Phosphatase 55 (38-126) U/L Troponin I <0.012 (0.000-0.034) ng/mL Total Protein 7.4 (6.3-8.2) g/dL Albumin 4.2 (3.5-5.0) g/dL Urine Color Urine Appearance (Clear) Urine pH (5.0-8.0) Ur Specific [place] (1.001-1.035) Urine Protein (Negative) Urine Glucose (UA) (Negative) Urine Ketones (Negative) Urine Blood (Negative) Urine Nitrite (Negative) Urine Bilirubin (Negative) Urine Urobilinogen (<2.0) mg/dL Ur Leukocyte Esterase (Negative) Urine RBC (0-5) /hpf Urine WBC (0-5) /hpf Ur Squamous Epith Cells (0-4) /hpf Urine Bacteria (None) /hpf Hyaline Casts (0-2) /lpf Urine Mucus (None) /hpf - Radiology Data Radiology results: report reviewed, image reviewed Two-view x-ray of the chest is obtained. Report reviewed in its entirety. Impression by Dr. Pena shows no acute cardiopulmonary process. Ultrasound of the twin fetuses were obtained. Report was reviewed in its entirety. Impression by Dr. Pena shows persistent dichorionic diamniotic twin live intrauterine gestations. Satisfactory interval growth progression noted. No free fluid currently. Both ovaries redemonstrated. No suspicious no adnexal masses. Heart rate of Twin A is 168, heart rate of Twin B is 168. Disposition Clinical Impression: Syncope, UTI (urinary tract infection) Disposition: HOME SELF-CARE Condition: Good Instructions (If sedation given, give patient instructions): Syncope (ED), Urinary Tract Infection in (ED) Additional Instructions: Increase fluids. Rest frequency and about a prescription in full even if you're feeling better. Follow up with her PARTS COUNTERPERSON for recheck as soon as possible. The primary care physician for recheck in 1-2 days. Return to the emergency department immediately for any new, worsening, or concerning symptoms. Prescriptions: Cephalexin [Keflex] 500 mg PO Q6H #28 cap Is patient prescribed a controlled substance at d/c from ED?: No Referrals: Nonstaff,Physician [REFERRING] - 1-2 days Time of Disposition: 22:30
[2020-10-15 20:37] LABS: Basophils % (A) 0 %; Eosinophils % (A) 0 %; HCT 35.8 % (34.0-46.0); HGB 12.8 gm/dL (11.4-16.0); Lymphocytes # (A) 1.3 k/uL (1.0-4.8); Lymphocytes % (A) 15 %; MCHC 35.9 g/dL (31.0-37.0); MCV 91.8 fL (80.0-100.0); Mean Platelet Volume 8.3; Monocytes # (A) 0.3 k/uL (0-1.0); Monocytes % (A) 4 %; Neutrophils % (A) 80 %; Platelet Count 188 k/uL (150-450); RDW 12.6 % (11.5-15.5); WBC 8.8 k/uL (3.8-10.6)
[2020-10-15 20:46] LABS: Appearance,Urine Cloudy (Clear); Bacteria,Urine Rare /hpf; Bilirubin,Urine Negative (Negative); Blood,Urine Trace (Negative); Color,Urine Yellow; Glucose,Urine (UA) Negative (Negative); Hyaline Casts,Urine 1 /lpf (0-2); Ketones,Urine 1+ (Negative); Leukocyte Esterase,Urine Large (Negative); Mucus,Urine Moderate /hpf; Nitrite,Urine Negative (Negative); Protein,Urine Trace (Negative); RBC,Urine 10 /hpf (0-5); Specific Gravity,Urine 1.019 (1.001-1.035); Squamous Epithelial Cell,Urine 7 /hpf (0-4); WBC,Urine 25 /hpf (0-5)
[2020-10-15 20:49] LABS: ALT 11 U/L (4-34); AST 22 U/L (14-36); African American GFR (CKD) >90 (>60 ml/min/1.73 sqM); Albumin 4.2 g/dL (3.5-5.0); Alkaline Phosphatase 55 U/L (38-126); Anion Gap 9 mmol/L; Blood Urea Nitrogen 8 mg/dL (7-17); Calcium 9.6 mg/dL (8.4-10.2); Carbon Dioxide 20 mmol/L (22-30); Chloride 105 mmol/L (98-107); Glucose 81 mg/dL (74-99); Non-African American GFR(CKD) >90 (>60 ml/min/1.73 sqM); Potassium 4.2 mmol/L (3.5-5.1); Sodium 134 mmol/L (137-145); Total Bilirubin 0.6 mg/dL (0.2-1.3); Total Protein 7.4 g/dL (6.3-8.2)
[2020-10-15 20:55] LABS: INR 0.9 (<1.2); Partial Thromboplastin Time 26.9 sec (22.0-30.0); Prothrombin Time 9.5 sec (9.0-12.0)
--- NOTE | 2020-10-15 20:59 | XR ---
EXAMINATION TYPE: XR chest 2V DATE OF EXAM: 10/15/2020 COMPARISON: NONE HISTORY: Syncope and weakness. TECHNIQUE: Frontal and lateral views of the chest are obtained. FINDINGS: There is no focal air space opacity, pleural effusion, or pneumothorax seen. The cardiac silhouette size is within normal limits. The osseous structures are intact. IMPRESSION: No acute cardiopulmonary process.
[2020-10-15] MEDS ORDERED: cefTRIAXone IN SWFI 1,000 MG/10 ML SYRINGE IVP STA (21:03)
[2020-10-15 21:33] VITALS: RESP 18
--- NOTE | 2020-10-15 21:47 | US ---
EXAMINATION TYPE: US OB <= 14 wk twins DATE OF EXAM: 10/15/2020 COMPARISON: Prior ultrasound 2 weeks ago. CLINICAL HISTORY: Syncope; difficulty finding heart tones. Syncope. Hx miscarriage. Hx twin gestation. A1. EXAM PERFORMED: Transabdominal (TA) EXAM MEASUREMENTS: GESTATIONAL AGE / DATING Physician Established: (10 weeks/0 days) EDC: 05/13/2021 Dates by LMP: Unknown Dates by First Scan: (10 weeks/0 days) EDC: 05/13/2021 Dates by Current Scan for Baby A: (11 weeks/0 days) EDC: 05/06/2021 Dates by Current Scan for Baby B: (11 weeks/0 days) EDC: 05/06/2021 MATERNAL ANATOMY Uterus: 12.0 x 11.0 x 8.3 cm. Anteverted. Right Ovary: 4.4 x 3.5 x 2.3 cm. Appears enlarged. Two anechoic areas seen. #1- 1.7 x 2.2 x 1.9 cm. # 2- 2.1 x 1.4 x 1.2 cm. Left Ovary: 3.5 x 2.1 x 1.4 cm. Measures upper limits of normal. Post CDS / Adnexa: Appear wnl Presence of free fluid: None seen Presence of corpus luteal cyst: Possible within right ovary. Two anechoic areas seen in right ovary a s mentioned above. Presence of subchorionic bleed: Not seen. Presence of two separate gestational sacs: Yes GESTATION / SURVEY TWIN A CRL: 4.08 cm. (11 wks/ 0 days) Yolk Sac (normal less than 6mm): 5.6 mm. Measures upper limits of normal. Heart Rate: 168 bpm Rhythm: Normal IUP: Viable IUP Nuchal Translucency 10-14wks (normal less than 3mm): 0.7 mm. TWIN B CRL: 5.05 cm. (11 wks/ 0 days) Yolk Sac (normal less than 6mm): 4.2 mm Heart Rate: 168 bpm Rhythm: Normal IUP: Viable IUP Nuchal Translucency 10-14wks (normal less than 3mm): Not visualized clearly to measure. Date of LMP: Unknown Beta HcG (if available): Not available Persistent dichorionic diamniotic twin live intrauterine gestations. Satisfactory interval growth pro gression noted. No free fluid currently. Both ovaries redemonstrated. No suspicious new adnexal masses. IMPRESSION: As above.
[2020-10-15 22:49] VITALS: BP 106/67; PULSE 88; TEMP 98
== END 2020-10-15 22:49 | disposition home or self-care (01) ==
LOC: EC 19:16
DX: O23.41 Unspecified infection of urinary tract in pregnancy, first trimester (principal); R55 Syncope and collapse; Z88.1 Allergy status to other antibiotic agents; Z3A.10 10 weeks gestation of pregnancy
CPT/HCPCS: 36415; 93005; 80053; 83735; 84484; 85025; 85610; 85730; 81001; 87086; 71046; 76801; 76802; 99284; 96374; 96361; J0696; 76813

== ENCOUNTER 2020-12-29 19:05 | Outpatient (CLI) | payer OTHER ==
[2020-12-29 20:15] VITALS: BP 126/74; PULSE 89; RESP 18; TEMP 97.8
--- NOTE | 2021-02-13 17:22 | P.MSEPDOC ---
Presenting Problems - Arrival Data Date of Arrival on Unit: 12/29/20 Time of Arrival on Unit: 19:05 Mode of Transport: Ambulatory - Complaint OB-Reason for Admission/Chief Complaint: Decreased Movement Medical History - Information : 2 Para: 0 Term: 0 : 0 Abortions: Spontaneous or Elective: 1 Number of Living Children: 0 - Gestational Age Gestational Age by ANSELMO (wks/days): 20 Weeks and 5 Days Review of Systems - Review of Systems Constitutional: No problems Breast: No problems ENT: No problems Cardiovascular: No problems Respiratory: No problems Gastrointestinal: No problems Genitourinary: No problems Musculoskeletal: No problems Neurological: No problems Skin: No problems Vital Signs - Temperature Temperature: 97.8 F Temperature Source: Temporal Artery Scan - Pulse Apical Pulse Rate: 89 Pulse Assessment Method: Automatic Cuff - Respirations Respiratory Rate: 18 Oxygen Delivery Method: Room Air O2 Sat by Pulse Oximetry: 98 - Blood Pressure Right Arm Blood Pressure: 126/74 Blood Pressure Mean: 91 Blood Pressure Source: Automatic Cuff Medical Screen Scoring (Pre) - Cervical Exam Dilation: Exam Deferred Effacement: Exam Deferred Membranes: Intact - Uterine Contractions Frequency: N/A Duration: N/A Intensity: N/A - Maternal Vital Signs Maternal Temperature: N/A Maternal Blood Pressure: N/A Signs of Preeclampsia: N/A Maternal Respirations: N/A - Maternal Trauma Maternal Trauma: N/A - Assessment - Baby A Baseline FHR: 155 Heart Rate - NICHD Category: Category I (Normal) = 0 Position: N/A Station: N/A - Assessment - Baby B Baseline FHR: 145 Heart Rate - NICHD Category: Category I (Normal) = 0 Position: N/A Station: N/A - Total Score - Baby A Total Score - Baby A: 0 - Total Score - Baby B Total Score - Baby B: 0 - Total Score - Baby C Total Score - Baby C: 0 - Level of Risk - Baby A Level of Risk - Baby A: Low (0-5) - Level of Risk - Baby B Level of Risk - Baby B: Low (0-5) - Level of Risk - Baby C Level of Risk - Baby C: Low (0-5) Physician Notification (Pre) - Physician Notified Physician Notified Date: 12/29/20 Physician Notified Time: 19:45 New Order Received: Yes - Notification Comment Comment: Dr. Mendoza called re: c/o decreased movement since yesterday, maternal. status, status, FHR of twin A (155 bpm) and B (145 bpm), and mothers report of increased movement since arrival to triage. Orders received to d/c pt home and remind her that movement is not often felt consistently until 20-23 weeks. Pt to keep sched appt with Dr. Gallegos next month. No NST needed due to gestational age. Disposition - Disposition OB Disposition: Discharge to home Discharge Date: 12/29/20 Discharge Time: 19:51 I agree with the RN Medical Screening Exam: Yes Physician's MSE Comment: Patient not seen or examined by myself Case reviewed; plan agreed upon as documented in EMR&OBIX.: Yes Diagnosis: DECREASED MOVEMENTS, SECOND TRIMESTER, FETUS 1
== END 2020-12-29 19:51 | disposition home or self-care (01) ==
LOC: FBPOP 19:05
PROVIDERS: ATTEND Obstetrics & Gynecology Obstetrics
DX: O36.8120 Decreased fetal movements, second trimester, not applicable or unspecified (principal); Z3A.20 20 weeks gestation of pregnancy
CPT/HCPCS: 99213

== ENCOUNTER 2021-01-14 18:19 | Outpatient (CLI) | payer OTHER ==
[2021-01-14 19:06] VITALS: BP 107/70; PULSE 85; RESP 16; TEMP 98.2
== END 2021-01-14 19:05 | disposition home or self-care (01) ==
LOC: FBPOP 18:19
PROVIDERS: ATTEND Obstetrics & Gynecology
DX: O26.899 Other specified pregnancy related conditions, unspecified trimester (principal); Z3A.00 Weeks of gestation of pregnancy not specified
CPT/HCPCS: 84112; G0463; 99213

== ENCOUNTER 2021-02-07 20:32 | Outpatient (CLI) | payer OTHER ==
[2021-02-07 21:58] LABS: Amorphous Sediment,Urine Rare /hpf; Appearance,Urine Turbid (Clear); Bacteria,Urine Few /hpf; Bilirubin,Urine Negative (Negative); Blood,Urine Negative (Negative); Calcium Oxalate Crystals,Urine Moderate /hpf; Color,Urine Yellow; Glucose,Urine (UA) Negative (Negative); Ketones,Urine Negative (Negative); Leukocyte Esterase,Urine Large (Negative); Mucus,Urine Occasional /hpf; Nitrite,Urine Negative (Negative); PH, Urine 6.5 (5.0-8.0); Protein,Urine Trace (Negative); RBC,Urine 6 /hpf (0-5); Specific Gravity,Urine 1.012 (1.001-1.035); Squamous Epithelial Cell,Urine 38 /hpf (0-4); WBC,Urine 105 /hpf (0-5)
[2021-02-07 22:45] VITALS: BP 118/79; PULSE 79; RESP 16; TEMP 96.8
--- NOTE | 2021-02-13 17:43 | P.MSEPDOC ---
Presenting Problems - Arrival Data Date of Arrival on Unit: 02/07/21 Time of Arrival on Unit: 20:32 Mode of Transport: Ambulatory - Complaint OB-Reason for Admission/Chief Complaint: Possible Onset of Labor Comment: Pt presents to triage with c/o contractions that started around 1600. Pt was not able to identify how close together contractions were and states it feels more like an abdominal cramp than a contraction. No contractions palpated or traced per toco. Medical History - Information : 2 Para: 0 Term: 0 : 0 Abortions: Spontaneous or Elective: 1 Number of Living Children: 0 - Gestational Age Gestational Age by ANSELMO (wks/days): 26 Weeks and 3 Days Review of Systems - Review of Systems Constitutional: No problems Breast: No problems ENT: No problems Cardiovascular: No problems Respiratory: No problems Gastrointestinal: No problems Genitourinary: No problems Musculoskeletal: No problems Neurological: No problems Skin: No problems Vital Signs - Temperature Temperature: 96.8 F Temperature Source: Temporal Artery Scan - Pulse Apical Pulse Rate: 79 Pulse Assessment Method: Automatic Cuff - Respirations Respiratory Rate: 16 Oxygen Delivery Method: Room Air O2 Sat by Pulse Oximetry: 99 - Blood Pressure Right Arm Blood Pressure: 118/79 Blood Pressure Mean: 92 Blood Pressure Source: Automatic Cuff Medical Screen Scoring (Pre) - Cervical Exam Dilation: 0 cm = 0 Effacement: Exam Deferred Membranes: Intact - Uterine Contractions Frequency: N/A Duration: N/A Intensity: N/A - Maternal Vital Signs Maternal Temperature: N/A Maternal Blood Pressure: N/A Signs of Preeclampsia: Headache = 1, Visual Disturbance = 1, Epigastric Pain = 1 Maternal Respirations: N/A - Maternal Trauma Maternal Trauma: N/A - Assessment - Baby A Baseline FHR: 140 Heart Rate - NICHD Category: Category I (Normal) = 0 Position: N/A Station: N/A - Assessment - Baby B Baseline FHR: 155 Heart Rate - NICHD Category: Category I (Normal) = 0 Position: N/A Station: N/A - Total Score - Baby A Total Score - Baby A: 3 - Total Score - Baby B Total Score - Baby B: 3 - Total Score - Baby C Total Score - Baby C: 3 - Level of Risk - Baby A Level of Risk - Baby A: Low (0-5) - Level of Risk - Baby B Level of Risk - Baby B: Low (0-5) - Level of Risk - Baby C Level of Risk - Baby C: Low (0-5) Physician Notification (Pre) - Physician Notified Physician Notified Date: 02/07/21 Physician Notified Time: 21:25 New Order Received: Yes - Notification Comment Comment: Dr. Mendoza called re: maternal c/o contractions/abdominal cramping, epigastric. pain, headahce, lower back pain, seeing spots, vital signs, abdomen palpated during. period of cramping which remains soft and nontender, urine sample and status. Orders received to send urine, perform FFN and SVE and call back with results. Called back with urinalysis and SVE. Orders received to d/c pt home, increase fluids over weekend until urine is clear and keep appt to follow up with Dr. Gallegos 02/11/21. Disposition - Disposition OB Disposition: Discharge to home, Written follow up instructions reviewed Discharge Date: 02/07/21 Discharge Time: 22:25 I agree with the RN Medical Screening Exam: Yes Physician's MSE Comment: Patient was not seen or examined by myself Case reviewed; plan agreed upon as documented in EMR&OBIX.: Yes Diagnosis: RELATED CONDITIONS, UNSPECIFIED, SECOND TRIMESTER
== END 2021-02-07 22:25 | disposition home or self-care (01) ==
LOC: FBPOP 20:32
PROVIDERS: ATTEND Obstetrics & Gynecology Obstetrics
DX: O26.92 Pregnancy related conditions, unspecified, second trimester (principal); Z3A.26 26 weeks gestation of pregnancy
CPT/HCPCS: 82731; 81001; G0463; 99213

== ENCOUNTER 2021-04-01 17:24 | Outpatient (CLI) | payer OTHER ==
[2021-04-01 17:39] VITALS: RESP 16; TEMP 96.7
[2021-04-01] MEDS ORDERED: BETAMET ACET-BETAMETH SOD PHOS 6 MG/ML MDV IM SCH (17:45)
[2021-04-01 18:25] LABS: Appearance,Urine Cloudy (Clear); Bacteria,Urine Rare /hpf; Bilirubin,Urine Negative (Negative); Blood,Urine Trace (Negative); Color,Urine Light Yellow; Glucose,Urine (UA) Negative (Negative); Hyaline Casts,Urine 1 /lpf (0-2); Ketones,Urine Negative (Negative); Leukocyte Esterase,Urine Moderate (Negative); Nitrite,Urine Negative (Negative); PH, Urine 6.5 (5.0-8.0); Protein,Urine Negative (Negative); RBC,Urine 1 /hpf (0-5); Specific Gravity,Urine 1.005 (1.001-1.035); Squamous Epithelial Cell,Urine 3 /hpf (0-4); Urobilinogen,Urine <2.0 mg/dL (<2.0); WBC,Urine 8 /hpf (0-5)
[2021-04-01 18:33] LABS: Creatinine,Urine Random 45.6 mg/dL
[2021-04-01 18:34] LABS: Creatinine,Urine Random 44.6 mg/dL; Protein/Creatinine Ratio,Urine 0.336
[2021-04-01 18:55] LABS: Basophils % (A) 1 %; Eosinophils % (A) 0 %; HCT 31.4 % (34.0-46.0); HGB 10.3 gm/dL (11.4-16.0); Hypochromasia Slight; Lymphocytes # (A) 1.7 k/uL (1.0-4.8); Lymphocytes % (A) 26 %; MCHC 32.8 g/dL (31.0-37.0); MCV 82.2 fL (80.0-100.0); Mean Platelet Volume 10.2; Monocytes # (A) 0.3 k/uL (0-1.0); Monocytes % (A) 4 %; Neutrophils # (A) 4.4 k/uL (1.3-7.7); Neutrophils % (A) 67 %; Platelet Count 211 k/uL (150-450); Poikilocytosis Moderate; RBC 3.82 m/uL (3.80-5.40); RDW 14.9 % (11.5-15.5); WBC 6.7 k/uL (3.8-10.6)
[2021-04-01 19:03] LABS: ALT <6 U/L (4-34); AST 22 U/L (14-36); African American GFR (CKD) >90 (>60 ml/min/1.73 sqM); Blood Urea Nitrogen 8 mg/dL (7-17); LDH 516 U/L (313-618); Non-African American GFR(CKD) >90 (>60 ml/min/1.73 sqM); Uric Acid 6.7 mg/dL (3.7-7.4)
[2021-04-01 19:44] VITALS: BP 125/93; PULSE 72
--- NOTE | 2021-04-24 16:29 | P.MSEPDOC ---
Presenting Problems - Arrival Data Date of Arrival on Unit: 04/01/21 Time of Arrival on Unit: 17:25 Mode of Transport: Ambulatory - Complaint OB-Reason for Admission/Chief Complaint: Possible Onset of Labor Comment: pt here from office, spoke with dr mendoza,. prolonged monitor twins/administer celestone/recheck. cervix in an hour of arriving to triage, will notify. dr mendoza when items are completed, abd soft and non. tender, reports + fm x2, denies lof/vb Medical History - Information : 2 Para: 0 Term: 0 : 0 Abortions: Spontaneous or Elective: 0 Number of Living Children: 0 - Gestational Age Gestational Age by ANSELMO (wks/days): 34 Weeks and 0 Days - History Complications: Multiple Review of Systems - Review of Systems Constitutional: No problems Breast: No problems ENT: No problems Cardiovascular: No problems Respiratory: No problems Gastrointestinal: No problems Genitourinary: No problems Musculoskeletal: No problems Neurological: No problems Skin: No problems Vital Signs - Temperature Temperature: 96.7 F Temperature Source: Temporal Artery Scan - Pulse Right Brachial Pulse Rate: 72 Pulse Assessment Method: Automatic Cuff - Respirations Respiratory Rate: 16 Oxygen Delivery Method: Room Air - Blood Pressure Right Arm Blood Pressure: 125/93 Blood Pressure Mean: 103 Blood Pressure Source: Automatic Cuff Medical Screen Scoring - Assessment - Baby A Baseline FHR: 135 - Assessment - Baby B Baseline FHR: 135 Physician Notification - Physician Notified Physician Notified Date: 04/01/21 Physician Notified Time: 19:23 Physician: Olivia Mendoza New Order Received: Yes - Notification Comment Comment: after review of labs, orders given to discharge patient home on modified bed rest, patient to follow up in the office with Dr. Mendoza tomorrow. Disposition - Disposition OB Disposition: Discharge to home, Written follow up instructions reviewed Discharge Date: 04/01/21 Discharge Time: 19:35 I agree with the RN Medical Screening Exam: Yes Case reviewed; plan agreed upon as documented in EMR&OBIX.: Yes Diagnosis: FALSE LABOR BEFORE 37 COMPLETED WEEKS OF GEST, THIRD TRI
== END 2021-04-01 19:35 | disposition home or self-care (01) ==
LOC: FBPOP 17:24
PROVIDERS: ATTEND Obstetrics & Gynecology Obstetrics
DX: O47.03 False labor before 37 completed weeks of gestation, third trimester (principal); Z3A.34 34 weeks gestation of pregnancy; Z88.1 Allergy status to other antibiotic agents
CPT/HCPCS: 59025; 96372; 82570; 84156; 82565; 83615; 84450; 84460; 84520; 84550; 85025; 81001; J0702; 99215

== ENCOUNTER 2021-04-02 10:57 | Outpatient (CLI) | payer OTHER ==
[2021-04-02] MEDS ORDERED: MAGNESIUM SULFATE-WATER PMX 4 GM in WATER FOR INJECTION 1 100ML.BAG IVPB ONE (11:49)
[2021-04-02] MEDS ORDERED: CALCIUM GLUCONATE 1 GM/10 ML VIAL IV PRN (11:49)
--- NOTE | 2021-04-02 11:57 | P.HPOB ---
History of Present Illness H&P Date: 04/02/21 Chief Complaint: Twin gestation at 34 weeks, preeclampsia This is a 20-year-old at 34-0/7 weeks with an estimated due date of 05/14 based on last menstrual period and consistent with 9 week ultrasound. Patient had been receiving routine care which has been essentially uncomplicated. Patient was seen yesterday with complaints of irregular contractions. Patient was seen in labor and delivery and labile blood pressures were noted negative preeclampsia labs were appreciated with a protein creatinine ratio of 0.3. Patient was seen and this morning in the office with an elevated blood pressure of 150/102 and sent once again to labor and delivery for mo nitoring. Patient's initial blood pressure in labor and delivery was 150/97. Patient does complain of a headache this morning. Patient is having irregular contractions with no vaginal bleeding loss of fluid. Patient does note good movement. Nonstress test 2 are category 1. Patient did have a growth ultrasound on 03/19 revealing good interval growth, A breech, B oblique Review of Systems Constitutional: Denies chills, Denies fatigue, Denies fever Ears, nose, mouth and throat: Reports headache Cardiovascular: Denies leg edema Gastrointestinal: Reports nausea, Denies constipation, Denies diarrhea, Denies vomiting Genitourinary: Reports Past Medical History Past Medical History: No Reported History History of Any Multi-Drug Resistant Organisms: None Reported Past Surgical History: No Surgical Hx Reported Smoking Status: Never smoker Medications and Allergies Home Medications Medication Instructions Recorded Confirmed Type No Known Home Medications 04/01/21 04/01/21 History Allergies Allergy/AdvReac Type Severity Reaction Status Date / Time nitrofurantoin Allergy Rash/Hives Verified 04/01/21 17:33 [From Macrobid] Exam Osteopathic Statement: *. No significant issues noted on an osteopathic structural exam other than those noted in the History and Physical/Consult. Targeted physical exam is performed and state in general this a well-nourished well-developed female in no acute distress, breathing is nonlabored, heart has a regular rate and rhythm, abdomen is gravid heart tones returned be category 12, cervical exam per RN is 1-2/50/ ballotable. Assessment and Plan (1) Twin gestation in third trimester Current Visit: Yes Status: Acute Code(s): O30.003 - TWIN PREG, UNSP NUM PLCNTA & AMNIO SACS, THIRD TRIMESTER SNOMED Code(s): 55101090 (2) Preeclampsia Current Visit: Yes Status: Acute Code(s): O14.90 - UNSPECIFIED PRE- ECLAMPSIA, UNSPECIFIED TRIMESTER SNOMED Code(s): 458565325 (3) 34 weeks gestation of Current Visit: Yes Status: Acute Code(s): Z3A.34 - 34 WEEKS GESTATION OF SNOMED Code(s): 88995924 Plan: This 20-year-old at 34 weeks of with known twin di di gestation. Patient is seen with elevated blood pressures 130-150's/90-100's. Patient does complain of a headache this morning. Patient is counseled on need for transfer to a tertiary care center given gestational age. Patient did rece jonnie betamethasone yesterday and will receive an additional dose today. IV infusion of magnesium will be begun. Questions are answered regarding transfer and patient states understanding.
[2021-04-02] MEDS ORDERED: LACTATED RINGERS 1,000 ML IV SCH ×2 (12:00)
[2021-04-02] MEDS ORDERED: MAGNESIUM SULFATE-WATER PMX 20 GM in WATER FOR INJECTION 1 500ML.BAG IV SCH (12:00)
[2021-04-02] MEDS ORDERED: BETAMET ACET-BETAMETH SOD PHOS 6 MG/ML MDV IM SCH (12:45)
[2021-04-02 14:02] VITALS: PULSE 85; RESP 16; TEMP 98.3
[2021-04-02 14:21] VITALS: BP 107/63
== END 2021-04-02 13:20 | disposition other institution (70) ==
LOC: FBPOP 10:57
PROVIDERS: ATTEND Obstetrics & Gynecology Obstetrics
DX: O14.93 Unspecified pre-eclampsia, third trimester (principal); O30.003 Twin pregnancy, unspecified number of placenta and unspecified number of amniotic sacs, third trimester; Z3A.34 34 weeks gestation of pregnancy; Z88.1 Allergy status to other antibiotic agents
CPT/HCPCS: 59025; 96361; 96365; 96366; 96372; G0463; J3475 ×2; J0702; 99215

== ENCOUNTER 2022-01-04 00:54 | Emergency (ER) | payer OTHER ==
[2022-01-04 01:01] VITALS: TEMP 97.8
[2022-01-04] MEDS ORDERED: ACETAMINOPHEN TAB 500 MG TAB PO STA (02:16)
[2022-01-04] MEDS ORDERED: IBUPROFEN 600 MG TAB PO STA (02:16)
--- NOTE | 2022-01-04 02:18 | ED ---
SOB HPI - General Chief Complaint: Shortness of Breath Stated Complaint: SOB, Chest Pain Time Seen by Provider: 01/04/22 01:12 Source: patient, RN notes reviewed, old records reviewed Mode of arrival: wheelchair Limitations: no limitations - History of Present Illness Initial Comments: This is a 21-year-old female to the emergency department for evaluation. Patient has a few complaints today some chest pain shortness of breath. Patient unsure of any other symptoms. She states she is without fever. No recent travel history sick contacts. MD Complaint: shortness of breath, cough, chest pain -: hour(s) Radiation: back Severity: moderate Severity scale (1-10): 4 Quality: dull, aching Consistency: intermittent Improves With: nothing Worsens With: nothing Known History Of: other (none) Context: recent URI Associated Symptoms: chest pain Treatments Prior to Arrival: none - Related Data Previous Rx's Medication Instructions Recorded Sulfamethox-Tmp 800-160Mg [Bactrim 1 tab PO Q12HR #10 tab 01/04/22 DS 800-160 mg] Sulfamethox-Tmp 800-160Mg [Bactrim 1 tab PO Q12HR #14 tab 01/04/22 DS 800-160 mg] Allergies Allergy/AdvReac Type Severity Reaction Status Date / Time nitrofurantoin Allergy Rash/Hives Verified 01/04/22 01:01 [From Pertinobid] Review of Systems ROS Statement: Those systems with pertinent positive or pertinent negative responses have been documented in the HPI. ROS Other: All systems not noted in ROS Statement are negative. Past Medical History Past Medical History: No Reported History History of Any Multi-Drug Resistant Organisms: None Reported Past Surgical History: Section Past Psychological History: Depression Smoking Status: Never smoker Past Alcohol Use History: None Reported Past Drug Use History: None Reported General Exam General appearance: alert, in no apparent distress Head exam: Present: atraumatic, normocephalic, normal inspection Eye exam: Present: normal appearance, PERRL, EOMI. Absent: scleral icterus, conjunctival injection, periorbital swelling ENT exam: Present: normal exam, mucous membranes moist Neck exam: Present: normal inspection. Absent: tenderness, meningismus, lymphadenopathy Respiratory exam: Present: normal lung sounds bilaterally. Absent: respiratory distress, wheezes, rales, rhonchi, stridor Cardiovascular Exam: Present: regular rate, normal rhythm, normal heart sounds. Absent: systolic murmur, diastolic murmur, rubs, gallop, clicks GI/Abdominal exam: Present: soft, normal bowel sounds. Absent: distended, tenderness, guarding, rebound, rigid Extremities exam: Present: normal inspection, full ROM, normal capillary refill. Absent: tenderness, pedal edema, joint swelling, calf tenderness Back exam: Present: normal inspection Neurological exam: Present: alert, oriented X3, CN II-XII intact Psychiatric exam: Present: normal affect, normal mood Skin exam: Present: warm, dry, intact, normal color. Absent: rash Course Vital Signs 01/04/22 01/04/22 01/04/22 00:58 02:01 04:16 Temperature 97.8 F Pulse Rate 84 79 Respiratory 19 18 14 Rate Blood Pressure 102/70 107/78 O2 Sat by Pulse 100 96 Oximetry - Reevaluation(s) Reevaluation #1: 01/04/22 Medical record is reviewed Patient symptoms are improved here in the ER Patient feels comfortable for discharge home Medical Decision Making - Medical Decision Making 21 female presented today for evaluation. She did have chest pain no findings on x-ray or sick coronavirus test or EKG. Patient is UTI we'll choose antibiotics and can be discharged home - Lab Data Lab Results 01/04/22 01/04/22 01/04/22 Range/Units 02:31 02:31 02:31 Urine Color Yellow Urine Appearance Cloudy H (Clear) Urine pH 6.0 (5.0-8.0) Ur Specific [place] 1.025 (1.001-1.035) Urine Protein Trace H (Negative) Urine Glucose (UA) Negative (Negative) Urine Ketones Trace H (Negative) Urine Blood Negative (Negative) Urine Nitrite Positive H (Negative) Urine Bilirubin Negative (Negative) Urine Urobilinogen 2.0 (<2.0) mg/dL Ur Leukocyte Esterase Large H (Negative) Urine RBC 1 (0-5) /hpf Urine WBC 172 H (0-5) /hpf Urine WBC Clumps Rare H (None) /hpf Ur Squamous Epith Cells 8 H (0-4) /hpf Urine Bacteria Many H (None) /hpf Urine Mucus Many H (None) /hpf Urine HCG, Qual Not Detected (Not Detectd) Coronavirus (PCR) Not Detected (Not Detectd) - EKG Data -: EKG Interpreted by Me (EKG is sinus rhythm 75 NC 119 QRS 92 QTC 414) - Radiology Data Radiology results: report reviewed (Chest x-rays negative for acute disease), image reviewed Disposition Clinical Impression: UTI (urinary tract infection), Atypical chest pain Disposition: HOME SELF-CARE Condition: Good Instructions (If sedation given, give patient instructions): Urinary Tract Infection in Women (ED) Prescriptions: Sulfamethox-Tmp 800-160Mg [Bactrim DS 800-160 mg] 1 tab PO Q12HR #14 tab Sulfamethox-Tmp 800-160Mg [Bactrim DS 800-160 mg] 1 tab PO Q12HR #10 tab Is patient prescribed a controlled substance at d/c from ED?: No Referrals: Rich Watson MD [Primary Care Provider] - 1-2 days
--- NOTE | 2022-01-04 02:43 | XR ---
EXAMINATION TYPE: XR chest 1V portable DATE OF EXAM: 01/04/2022 COMPARISON: 10/15/2020 HISTORY: Chest pain TECHNIQUE: FINDINGS: Heart and mediastinum are normal. Lungs are clear. Diaphragm is normal. Bony thorax appears normal. IMPRESSION: Normal chest. No change.
[2022-01-04 03:20] LABS: Appearance,Urine Cloudy (Clear); Bacteria,Urine Many /hpf; Bilirubin,Urine Negative (Negative); Blood,Urine Negative (Negative); Color,Urine Yellow; Glucose,Urine (UA) Negative (Negative); Ketones,Urine Trace (Negative); Leukocyte Esterase,Urine Large (Negative); Mucus,Urine Many /hpf; Nitrite,Urine Positive (Negative); Protein,Urine Trace (Negative); RBC,Urine 1 /hpf (0-5); Specific Gravity,Urine 1.025 (1.001-1.035); Squamous Epithelial Cell,Urine 8 /hpf (0-4); WBC,Urine 172 /hpf (0-5)
[2022-01-04] MEDS ORDERED: SULFAMETHOX-TMP 800-160MG 1 EACH TAB PO STA (03:51)
[2022-01-04] MEDS ORDERED: SULFAMETH-TMP DS STARTER PACK 2 TAB BTL PO STA (03:51)
[2022-01-04 04:17] VITALS: BP 107/78; PULSE 79; RESP 14
== END 2022-01-04 04:18 | disposition home or self-care (01) ==
LOC: EC 00:54
DX: R07.89 Other chest pain (principal); N39.0 Urinary tract infection, site not specified; F32.A Depression, unspecified; Z20.822 Contact with and (suspected) exposure to COVID-19
CPT/HCPCS: 71045; 81001; 81025; 87635; 93005; 99285

== ENCOUNTER 2022-04-11 11:42 | Emergency (ER) | payer OTHER ==
[2022-04-11 11:48] VITALS: RESP 18
[2022-04-11] MEDS ORDERED: methylPREDNISolone SOD SUCCI 125 MG/2 ML VIAL IV STA (12:10)
[2022-04-11] MEDS ORDERED: ONDANSETRON 4 MG/2 ML VIAL IVP STA (12:10)
[2022-04-11] MEDS ORDERED: diphenhydrAMINE 50 MG/ML 1 ML VIAL IVP STA (12:10)
[2022-04-11] MEDS ORDERED: FAMOTIDINE 20 MG/2 ML VIAL IV STA (12:10)
--- NOTE | 2022-04-11 12:21 | ED ---
Skin/Abscess/FB HPI - General Chief complaint: Skin/Abscess/Foreign Body Stated complaint: allergic reaction Time Seen by Provider: 04/11/22 11:51 Source: patient, RN notes reviewed Mode of arrival: ambulatory Limitations: no limitations - History of Present Illness Initial comments: This is a 21-year-old female who presents to the emergency department for a rash. Patient states that this started on her legs 1 month ago. States that this is itchy and painful. Denies being outside or coming into contact with any new products. She has been washing her sheets and clothes as well. She started Lamictal 6 months ago but has otherwise not taken any medications. The rash is primarily red, however when she starts to itch it, it becomes very bumpy. She tried taking a course of prednisone, however she could not swallow the pills and was only able to take 2 of them. She then received a steroid injection at the dermatology office. She is unsure what this was. States that this began to improve her symptoms, however they returned afterwards. She has tried taking Benadryl with no relief. Denies any fevers, chills, sore throat, cough, dyspnea, chest pain, palpitations, abdominal pain, nausea, vomiting, diarrhea, back pain, or heada ches. MD complaint: rash Onset/Timin -: month(s) Location: generalized - Related Data Previous Rx's Medication Instructions Recorded Sulfamethox-Tmp 800-160Mg [Bactrim 1 tab PO Q12HR #10 tab 01/04/22 DS 800-160 mg] Sulfamethox-Tmp 800-160Mg [Bactrim 1 tab PO Q12HR #14 tab 01/04/22 DS 800-160 mg] Famotidine [Pepcid] 40 mg PO QAM 10 Days #100 ml 04/11/22 Ondansetron Odt [Zofran Odt] 4 mg PO Q8HR PRN #15 tab 04/11/22 hydrOXYzine HCL [Atarax Oral Soln] 30 mg PO TID PRN #250 ml 04/11/22 prednisoLONE [prednisoLONE Oral 30 mg PO QAM 5 Days #75 ml 04/11/22 Soln] Allergies Allergy/AdvReac Type Severity Reaction Status Date / Time nitrofurantoin Allergy Rash/Hives Verified 04/11/22 11:48 [From Macrobid] Review of Systems ROS Statement: Those systems with pertinent positive or pertinent negative responses have been documented in the HPI. ROS Other: All systems not noted in ROS Statement are negative. Past Medical History Past Medical History: No Reported History History of Any Multi-Drug Resistant Organisms: None Reported Past Surgical History: Section Past Psychological History: Depression Smoking Status: Never smoker Past Alcohol Use History: None Reported Past Drug Use History: None Reported General Exam Limitations: no limitations General appearance: alert, in distress Head exam: Present: atraumatic, normocephalic, normal inspection Respiratory exam: Present: normal lung sounds bilaterally. Absent: respiratory distress, wheezes, rales, rhonchi, stridor Cardiovascular Exam: Present: regular rate, normal rhythm, normal heart sounds. Absent: systolic murmur, diastolic murmur, rubs, gallop, clicks Neurological exam: Present: alert, oriented X3, CN II-XII intact Psychiatric exam: Present: normal affect, normal mood Skin exam: Present: other (Generalized erythema on the bilateral upper and lower extremities and the trunk. No distinctive macular or papular lesions. Several lacerations from repeated itching. Negative Nikolsky sign.) Course Vital Signs 04/11/22 04/11/22 11:43 15:09 Temperature 98.2 F 98.3 F Pulse Rate 72 92 Respiratory 18 18 Rate Blood Pressure 115/77 109/69 O2 Sat by Pulse 98 98 Oximetry Medical Decision Making - Medical Decision Making This is a 21-year-old female who presents to the emergency department for a rash. Patient recently started Lamictal, the rash is not consistent with Dan-Oracio syndrome, as there is no blistering and the mucous membranes are not impacted. IV Solu-Medrol, Pepcid, Benadryl, and Zofran provided. Given the duration of her symptoms, patient requested lab work. CBC, CMP, and TSH were all noncontributory. Patient did report improvement with the Solu-Medrol, Pepcid, Benadryl, and Zofran. I sent a prescription for prednisolone, Atarax, Pepcid, and Zofran to the pharmacy. Advised that the Atarax will make her sleepy/groggy and she should take this at night or when she knows she'll be home. Instructed her to follow up with dermatology for further evaluation and possible skin biopsy. Return precautions reviewed in depth, the patient is instructed to return to the emergency department with any new, worsening, or concerning symptoms. Patient verbalized understanding. This case was discussed in detail with the attending ED physician. Presentation, findings, and treatment plan discussed in detail as well. - Lab Data Result diagrams: 04/11/22 13:10 04/11/22 13:10 Lab Results 04/11/22 04/11/22 Range/Units 13:10 13:10 WBC 3.7 L (3.8-10.6) k/uL RBC 4.41 (3.80-5.40) m/uL Hgb 14.2 (11.4-16.0) gm/dL Hct 42.1 (34.0-46.0) % MCV 95.4 (80.0-100.0) fL MCH 32.1 (25.0-35.0) pg MCHC 33.7 (31.0-37.0) g/dL RDW 14.0 (11.5-15.5) % Plt Count 217 (150-450) k/uL MPV 8.2 Neutrophils % 60 % Lymphocytes % 25 % Monocytes % 6 % Eosinophils % 5 % Basophils % 2 % Neutrophils # 2.2 (1.3-7.7) k/uL Lymphocytes # 0.9 L (1.0-4.8) k/uL Monocytes # 0.2 (0-1.0) k/uL Eosinophils # 0.2 (0-0.7) k/uL Basophils # 0.1 (0-0.2) k/uL Sodium 138 (137-145) mmol/L Potassium 4.3 (3.5-5.1) mmol/L Chloride 105 (98-107) mmol/L Carbon Dioxide 25 (22-30) mmol/L Anion Gap 8 mmol/L BUN 9 (7-17) mg/dL Creatinine 1.06 H (0.52-1.04) mg/dL Est GFR (CKD-EPI)AfAm 86 (>60 ml/min/1.73 sqM) Est GFR (CKD-EPI)NonAf 74 (>60 ml/min/1.73 sqM) Glucose 82 (74-99) mg/dL Calcium 9.2 (8.4-10.2) mg/dL Total Bilirubin 0.9 (0.2-1.3) mg/dL AST 17 (14-36) U/L ALT 9 (4-34) U/L Alkaline Phosphatase 62 (38-126) U/L Total Protein 6.7 (6.3-8.2) g/dL Albumin 4.4 (3.5-5.0) g/dL TSH 1.190 (0.465-4.680) mIU/L HCG, Qual Not Detected Disposition Clinical Impression: Rash and nonspecific skin eruption Disposition: HOME SELF-CARE Instructions (If sedation given, give patient instructions): Urticaria (ED), Acute Rash (ED) Additional Instructions: Return to the emergency department with any new, worsening, or concerning symptoms. Take the prednisolone for 5 days, take the Zofran as needed for nausea and vomiting, use the Atarax as needed up to 3 times daily for itching, this will make you sleepy and groggy, so take at night or if you know you'll be home. Take the Pepcid 1 to 2 times daily for 10-14 days. Follow-up with your stem mounter appointment as scheduled. Prescriptions: hydrOXYzine HCL [Atarax Oral Soln] 30 mg PO TID PRN #250 ml PRN Reason: Itching Famotidine [Pepcid] 40 mg PO QAM 10 Days #100 ml prednisoLONE [prednisoLONE Oral Soln] 30 mg PO QAM 5 Days #75 ml Ondansetron Odt [Zofran Odt] 4 mg PO Q8HR PRN #15 tab PRN Reason: Nausea And Vomiting Is patient prescribed a controlled substance at d/c from ED?: No Referrals: None,Stated [Primary Care Provider] - 1-2 days
[2022-04-11 13:25] LABS: Basophils # (A) 0.1 k/uL (0-0.2); Basophils % (A) 2 %; Eosinophils # (A) 0.2 k/uL (0-0.7); Eosinophils % (A) 5 %; HCT 42.1 % (34.0-46.0); HGB 14.2 gm/dL (11.4-16.0); Lymphocytes # (A) 0.9 k/uL (1.0-4.8); Lymphocytes % (A) 25 %; MCH 32.1 pg (25.0-35.0); MCHC 33.7 g/dL (31.0-37.0); MCV 95.4 fL (80.0-100.0); Mean Platelet Volume 8.2; Monocytes # (A) 0.2 k/uL (0-1.0); Monocytes % (A) 6 %; Neutrophils # (A) 2.2 k/uL (1.3-7.7); Neutrophils % (A) 60 %; Platelet Count 217 k/uL (150-450); RBC 4.41 m/uL (3.80-5.40); WBC 3.7 k/uL (3.8-10.6)
[2022-04-11 13:39] LABS: ALT 9 U/L (4-34); AST 17 U/L (14-36); African American GFR (CKD) 86 (>60 ml/min/1.73 sqM); Albumin 4.4 g/dL (3.5-5.0); Alkaline Phosphatase 62 U/L (38-126); Anion Gap 8 mmol/L; Blood Urea Nitrogen 9 mg/dL (7-17); Calcium 9.2 mg/dL (8.4-10.2); Carbon Dioxide 25 mmol/L (22-30); Chloride 105 mmol/L (98-107); Glucose 82 mg/dL (74-99); Non-African American GFR(CKD) 74 (>60 ml/min/1.73 sqM); Potassium 4.3 mmol/L (3.5-5.1); Sodium 138 mmol/L (137-145); Total Bilirubin 0.9 mg/dL (0.2-1.3); Total Protein 6.7 g/dL (6.3-8.2)
[2022-04-11 13:49] LABS: HCG,Qualitative Serum Not Detected
[2022-04-11 15:11] VITALS: BP 109/69; PULSE 92; TEMP 98.3
== END 2022-04-11 15:10 | disposition home or self-care (01) ==
LOC: EC 11:42
DX: R21 Rash and other nonspecific skin eruption (principal); Z88.3 Allergy status to other anti-infective agents
CPT/HCPCS: 36415; 80053; 84443; 85025; 84703; 99283; 96374; 96375; J1200; J2930; J2405

== ENCOUNTER → 2022-04-24 | Outpatient (CLI) | payer OTHER ==
[2022-04-24 22:29] LABS: Basophils # (A) 0.04 X 10*3/uL (0.00-0.10); Basophils % (A) 0.7 %; Eosinophils # (A) 0.08 X 10*3/uL (0.04-0.35); Eosinophils % (A) 1.4 %; HCT 44.9 % (37.2-46.3); HGB 14.5 g/dL (12.0-15.0); Immature Grans, Automated 0.2 %; Lymphocytes # (A) 1.61 X 10*3/uL (0.90-5.00); Lymphocytes % (A) 29.2 %; MCHC 32.3 g/dL (32.0-37.0); MCV 95.9 fL (80.0-97.0); Mean Platelet Volume 10.8 fL (9.5-12.2); Monocytes # (A) 0.29 X 10*3/uL (0.20-1.00); Monocytes % (A) 5.3 %; NRBC Per 100 WBC 0 /100 WBCS (0.0-0.0); Neutrophils # (A) 3.49 X 10*3/uL (1.80-7.70); Neutrophils % (A) 63.2 %; Platelet Count 239 X 10*3/uL (140-440); RBC 4.68 X 10*6/uL (4.10-5.20); RDW 13.1 % (11.5-14.5); WBC 5.52 X 10*3/uL (4.50-10.00)
[2022-04-24 23:10] LABS: African American GFR (CKD) 92.5 (60.0-200.0); Albumin 4.8 g/dL (3.8-4.9); Albumin/Globulin Ratio 2.24 (1.60-3.17); Anion Gap 12.8 mmol/L (10.00-18.00); BUN/Creat Ratio 8.55 Ratio (12.00-20.00); Blood Urea Nitrogen 8.5 mg/dL (9.0-27.0); Calcium 9.8 mg/dL (8.7-10.3); Carbon Dioxide 23.2 mmol/L (20.0-27.5); Globulin 2.2 g/dL (1.6-3.3); Non-African American GFR(CKD) 79.8 (60.0-200.0); Potassium 4.6 mmol/L (3.5-5.5); Total Bilirubin 0.5 mg/dL (0.30-1.20)
== END | disposition home or self-care (01) ==
LOC: LABWHC1 14:53
PROVIDERS: ATTEND Internal Medicine
DX: L50.9 Urticaria, unspecified (principal)
CPT/HCPCS: 36415; 80053; 84443; 85025; 86038

== ENCOUNTER 2022-05-06 09:24 | Emergency (ER) | payer OTHER ==
[2022-05-06 09:55] VITALS: RESP 16; TEMP 98.1
--- NOTE | 2022-05-06 10:11 | ED ---
General Adult HPI - General Chief complaint: Syncope Stated complaint: Syncope/pain in head Time Seen by Provider: 05/06/22 09:59 Source: patient, RN notes reviewed Mode of arrival: ambulatory Limitations: no limitations - History of Present Illness Initial comments: Patient is a pleasant 21-year-old female presents to the emergency room with complaints of a headache which is isolated to the posterior left side of parietal area just above her occipital region. She reports that the pain there is a stabbing pain initially followed by a dull ache. She reports that she has had these intermittent headaches for approximately 1 year and has had associated syncopal events with them occasionally including today's syncopal event. She reports that her syncopal event that occurred while sitting down she is unsure of how long she was unconscious for but reports no fall in the event was unwitnessed. She denies any weakness or focal neuro deficits. She denies any personal or family history of seizures. She does report that her grandmother had brain cancer however this was late in life. She denies any known congenital neurovascular or cardiovascular abnormalities. With the exception of the events as stated in the HPI overall she has been healthy and typically exercises regularly. - Related Data Home Medications Medication Instructions Recorded Confirmed lamoTRIgine [lamoTRIgine ER] 200 mg PO HS 05/06/22 05/06/22 Previous Rx's Medication Instructions Recorded Sulfamethox-Tmp 800-160Mg [Bactrim 1 tab PO Q12HR 3 Days #6 tab 05/06/22 DS 800-160 mg] Allergies Allergy/AdvReac Type Severity Reaction Status Date / Time nitrofurantoin Allergy Rash/Hives/leg Verified 05/06/22 10:51 [From Macrobid] swelling/chest tightness Review of Systems ROS Statement: Those systems with pertinent positive or pertinent negative responses have been documented in the HPI. ROS Other: All systems not noted in ROS Statement are negative. Past Medical History Past Medical History: No Reported History History of Any Multi-Drug Resistant Organisms: None Reported Past Surgical History: Section Past Psychological History: Depression Smoking Status: Never smoker Past Alcohol Use History: None Reported Past Drug Use History: None Reported General Exam Limitations: no limitations General appearance: alert, in no apparent distress Head exam: Present: atraumatic, normocephalic, normal inspection Eye exam: Present: normal appearance, PERRL, EOMI. Absent: scleral icterus, conjunctival injection, periorbital swelling ENT exam: Present: normal exam, mucous membranes moist Neck exam: Present: normal inspection. Absent: tenderness, meningismus, lymphadenopathy Respiratory exam: Present: normal lung sounds bilaterally. Absent: respiratory distress, wheezes, rales, rhonchi, stridor Cardiovascular Exam: Present: regular rate, normal rhythm, normal heart sounds. Absent: systolic murmur, diastolic murmur, rubs, gallop, clicks GI/Abdominal exam: Present: soft, normal bowel sounds. Absent: distended, tenderness, guarding, rebound, rigid Extremities exam: Present: normal inspection, full ROM, normal capillary refill. Absent: tenderness, pedal edema, joint swelling, calf tenderness Back exam: Present: normal inspection Neurological exam: Present: alert, oriented X3, CN II-XII intact Psychiatric exam: Present: normal affect, normal mood Course Vital Signs 05/06/22 05/06/22 09:52 11:56 Temperature 98.1 F Pulse Rate 85 65 Respiratory 16 16 Rate Blood Pressure 118/83 120/84 O2 Sat by Pulse 97 99 Oximetry Medical Decision Making - Medical Decision Making In the setting of focalized headache associated with syncopal event will check CT of the head along with CBC CMP UA and EKG. Given young age and lack of focal neural deficits at this time suspect cluster headache versus migraine with severe pain causing syncopal event. She reports currently her pain as a dull ache and denies any analgesic need at this time. CBC with mild leuko-cytopenia at baseline. CMP unremarkable. EKG sinus rhythm with LA intervals unchanged from previous EKG. CT of the head negative for acute intracranial processes. Urinalysis consistent with urinary tract impatient. She is ALLERGIC to Macrobid will place on Bactrim. Overall she is feeling well now and denies any severe headache, dizziness or focal neurological deficits. She is agreeable to for discharge home with follow- up with her primary care provider for possible neurology referral and MRI to further evaluate her headache. She denies any analgesic need. Case discussed with Dr. Adler. - Lab Data Result diagrams: 05/06/22 10:20 05/06/22 10:20 Lab Results 05/06/22 05/06/22 05/06/22 Range/Units 10:20 10:20 10:20 WBC 3.6 L (3.8-10.6) k/uL RBC 4.18 (3.80-5.40) m/uL Hgb 13.9 (11.4-16.0) gm/dL Hct 39.9 (34.0-46.0) % MCV 95.6 (80.0-100.0) fL MCH 33.4 (25.0-35.0) pg MCHC 34.9 (31.0-37.0) g/dL RDW 13.2 (11.5-15.5) % Plt Count 217 (150-450) k/uL MPV 8.1 Neutrophils % 58 % Lymphocytes % 33 % Monocytes % 5 % Eosinophils % 2 % Basophils % 1 % Neutrophils # 2.1 (1.3-7.7) k/uL Lymphocytes # 1.2 (1.0-4.8) k/uL Monocytes # 0.2 (0-1.0) k/uL Eosinophils # 0.1 (0-0.7) k/uL Basophils # 0.1 (0-0.2) k/uL Sodium 139 (137-145) mmol/L Potassium 4.1 (3.5-5.1) mmol/L Chloride 103 (98-107) mmol/L Carbon Dioxide 26 (22-30) mmol/L Anion Gap 10 mmol/L BUN 10 (7-17) mg/dL Creatinine 0.91 (0.52-1.04) mg/dL Est GFR (CKD-EPI)AfAm >90 (>60 ml/min/1.73 sqM) Est GFR (CKD-EPI)NonAf 89 (>60 ml/min/1.73 sqM) Glucose 80 (74-99) mg/dL Calcium 9.2 (8.4-10.2) mg/dL Total Bilirubin 1.1 (0.2-1.3) mg/dL AST 19 (14-36) U/L ALT 11 (4-34) U/L Alkaline Phosphatase 72 (38-126) U/L Total Protein 7.0 (6.3-8.2) g/dL Albumin 4.5 (3.5-5.0) g/dL Urine Color Light Yellow Urine Appearance Clear (Clear) Urine pH 7.0 (5.0-8.0) Ur Specific [place] 1.005 (1.001-1.035) Urine Protein Negative (Negative) Urine Glucose (UA) Negative (Negative) Urine Ketones Negative (Negative) Urine Blood Negative (Negative) Urine Nitrite Negative (Negative) Urine Bilirubin Negative (Negative) Urine Urobilinogen <2.0 (<2.0) mg/dL Ur Leukocyte Esterase Large H (Negative) Urine RBC 1 (0-5) /hpf Urine WBC 6 H (0-5) /hpf Ur Squamous Epith Cells 1 (0-4) /hpf Urine Bacteria Occasional H (None) /hpf Urine HCG, Qual (Not Detectd) Coronavirus (PCR) (Not Detectd) 05/06/22 05/06/22 Range/Units 10:20 10:25 WBC (3.8-10.6) k/uL RBC (3.80-5.40) m/uL Hgb (11.4-16.0) gm/dL Hct (34.0-46.0) % MCV (80.0-100.0) fL MCH (25.0-35.0) pg MCHC (31.0-37.0) g/dL RDW (11.5-15.5) % Plt Count (150-450) k/uL MPV Neutrophils % % Lymphocytes % % Monocytes % % Eosinophils % % Basophils % % Neutrophils # (1.3-7.7) k/uL Lymphocytes # (1.0-4.8) k/uL Monocytes # (0-1.0) k/uL Eosinophils # (0-0.7) k/uL Basophils # (0-0.2) k/uL Sodium (137-145) mmol/L Potassium (3.5-5.1) mmol/L Chloride (98-107) mmol/L Carbon Dioxide (22-30) mmol/L Anion Gap mmol/L BUN (7-17) mg/dL Creatinine (0.52-1.04) mg/dL Est GFR (CKD-EPI)AfAm (>60 ml/min/1.73 sqM) Est GFR (CKD-EPI)NonAf (>60 ml/min/1.73 sqM) Glucose (74-99) mg/dL Calcium (8.4-10.2) mg/dL Total Bilirubin (0.2-1.3) mg/dL AST (14-36) U/L ALT (4-34) U/L Alkaline Phosphatase (38-126) U/L Total Protein (6.3-8.2) g/dL Albumin (3.5-5.0) g/dL Urine Color Urine Appearance (Clear) Urine pH (5.0-8.0) Ur Specific [place] (1.001-1.035) Urine Protein (Negative) Urine Glucose (UA) (Negative) Urine Ketones (Negative) Urine Blood (Negative) Urine Nitrite (Negative) Urine Bilirubin (Negative) Urine Urobilinogen (<2.0) mg/dL Ur Leukocyte Esterase (Negative) Urine RBC (0-5) /hpf Urine WBC (0-5) /hpf Ur Squamous Epith Cells (0-4) /hpf Urine Bacteria (None) /hpf Urine HCG, Qual Not Detected (Not Detectd) Coronavirus (PCR) Not Detected (Not Detectd) - EKG Data EKG Comments: Sinus rhythm with sinus arrhythmia with short LA intervals, ventricular rate 70 bpm, LA interval 117 ms, QRS duration 81 ms, QT/QTC 390/411 ms, PRT axes 56, 75, 51 When compared to previous EKG there are: no significant change - Radiology Data Radiology results: report reviewed, image reviewed CT brain without contrast: No acute intraparenchymal hemorrhage or mass effect. Intracranial vascular umenremarkable No acute intracranial processes. Disposition Clinical Impression: Headache, UTI (urinary tract infection) Disposition: HOME SELF-CARE Condition: Stable Instructions (If sedation given, give patient instructions): General Headache (ED), Urinary Tract Infection in Women (ED) Additional Instructions: Please follow-up with your primary care provider regarding possible further workup of headaches including potential neurology referral and MRI. Utilize Tylenol or ibuprofen as needed for headaches. Please complete antibiotic course for urinary tract infection. Drink plenty of fluids. Please return to the Emergency Department if symptoms worsen or any other concerns. Prescriptions: Sulfamethox-Tmp 800-160Mg [Bactrim DS 800-160 mg] 1 tab PO Q12HR 3 Days #6 tab Is patient prescribed a controlled substance at d/c from ED?: No Referrals: Rachel Greer NPC [REFERRING] - 1-2 days Forms: Work/School Release Time of Disposition: 12:22
[2022-05-06 10:32] LABS: Basophils # (A) 0.1 k/uL (0-0.2); Basophils % (A) 1 %; Eosinophils # (A) 0.1 k/uL (0-0.7); Eosinophils % (A) 2 %; HCT 39.9 % (34.0-46.0); HGB 13.9 gm/dL (11.4-16.0); Lymphocytes # (A) 1.2 k/uL (1.0-4.8); Lymphocytes % (A) 33 %; MCH 33.4 pg (25.0-35.0); MCHC 34.9 g/dL (31.0-37.0); MCV 95.6 fL (80.0-100.0); Mean Platelet Volume 8.1; Monocytes # (A) 0.2 k/uL (0-1.0); Monocytes % (A) 5 %; Neutrophils # (A) 2.1 k/uL (1.3-7.7); Neutrophils % (A) 58 %; Platelet Count 217 k/uL (150-450); RBC 4.18 m/uL (3.80-5.40); RDW 13.2 % (11.5-15.5); WBC 3.6 k/uL (3.8-10.6)
[2022-05-06 10:46] LABS: Appearance,Urine Clear (Clear); Bacteria,Urine Occasional /hpf; Bilirubin,Urine Negative (Negative); Blood,Urine Negative (Negative); Color,Urine Light Yellow; Glucose,Urine (UA) Negative (Negative); Ketones,Urine Negative (Negative); Leukocyte Esterase,Urine Large (Negative); Nitrite,Urine Negative (Negative); Protein,Urine Negative (Negative); RBC,Urine 1 /hpf (0-5); Specific Gravity,Urine 1.005 (1.001-1.035); Squamous Epithelial Cell,Urine 1 /hpf (0-4); Urobilinogen,Urine <2.0 mg/dL (<2.0); WBC,Urine 6 /hpf (0-5)
[2022-05-06 10:50] LABS: ALT 11 U/L (4-34); AST 19 U/L (14-36); African American GFR (CKD) >90 (>60 ml/min/1.73 sqM); Albumin 4.5 g/dL (3.5-5.0); Alkaline Phosphatase 72 U/L (38-126); Anion Gap 10 mmol/L; Blood Urea Nitrogen 10 mg/dL (7-17); Calcium 9.2 mg/dL (8.4-10.2); Carbon Dioxide 26 mmol/L (22-30); Chloride 103 mmol/L (98-107); Glucose 80 mg/dL (74-99); Non-African American GFR(CKD) 89 (>60 ml/min/1.73 sqM); Potassium 4.1 mmol/L (3.5-5.1); Sodium 139 mmol/L (137-145); Total Bilirubin 1.1 mg/dL (0.2-1.3)
--- NOTE | 2022-05-06 11:08 | CT ---
EXAMINATION TYPE: CT brain wo con CT DLP: 1054.9 mGycm, Automated exposure control for dose reduction was used. DATE OF EXAM: 05/06/2022 11:03 AM COMPARISON: Prior CT Brain from : 10/29/2015 CLINICAL INDICATION:Female, 21 years old with history of Headache, TECHNIQUE: Brain: Multiple axial CT images of the brain were obtained without IV contrast. FINDINGS: Brain: Extra-axial spaces: No abnormal extra-axial fluid collections. Ventricular system: Within normal limits Cerebral parenchyma: No acute intraparenchymal hemorrhage or mass effect. The maradiaga-white junction is well differentiated. Cerebellum: Unremarkable. Mass effect: No evidence of midline shift. Intracranial vasculature: unremarkable Soft tissues: Normal. Calvarium/osseous structures: No depressed skull fracture. Paranasal sinuses and mastoid air cells: Clear Visualized orbits: Orbital contents are intact. IMPRESSION: No acute intracranial process.
[2022-05-06 11:57] VITALS: BP 120/84; PULSE 65
== END 2022-05-06 12:40 | disposition home or self-care (01) ==
LOC: EC 09:24
DX: N39.0 Urinary tract infection, site not specified (principal); R51.9 Headache, unspecified; Z20.822 Contact with and (suspected) exposure to COVID-19
CPT/HCPCS: 36415; 70450; 80053; 81001; 81025; 85025; 87635; 93005; 99284

== ENCOUNTER 2023-05-17 09:41 | Emergency (ER) | payer OTHER ==
[2023-05-17 09:50] VITALS: TEMP 98
--- NOTE | 2023-05-17 10:03 | ED ---
Female Urogenital HPI - General Chief complaint: Vaginal Bleeding Stated complaint: preg,vag bleeding Time Seen by Provider: 05/17/23 09:51 Source: patient, RN notes reviewed Mode of arrival: ambulatory Limitations: no limitations - History of Present Illness Initial comments: This is a 22-year-old female who presents to the emergency department for vagi nal bleeding in . Patient is A1, having twins in her previous and one miscarriage. States that the bleeding started today and was not enough to fill a pad. She is unsure how far along she is. She has very irregular periods and cannot remember when her last one was. States that it may have been 2-3 months ago. She has mild nausea. Denies any pelvic pain/cramping. She previously saw Dr. Mendoza, but has not yet made an appointment for this . Denies any fevers, chills, sore throat, cough, dyspnea, chest pain, palpitations, abdominal pain, vomiting, diarrhea, back pain, or headaches. MD Complaint: vaginal bleeding Patient : Yes - Related Data Home Medications Medication Instructions Recorded Confirmed lamoTRIgine [lamoTRIgine ER] 200 mg PO HS 05/06/22 05/06/22 Previous Rx's Medication Instructions Recorded Sulfamethox-Tmp 800-160Mg [Bactrim 1 tab PO Q12HR 3 Days #6 tab 05/06/22 DS 800-160 mg] Allergies Allergy/AdvReac Type Severity Reaction Status Date / Time nitrofurantoin Allergy Rash/Hives/leg Verified 05/17/23 09:49 [From Macrobid] swelling/chest tightness Review of Systems ROS Statement: Those systems with pertinent positive or pertinent negative responses have been documented in the HPI. ROS Other: All systems not noted in ROS Statement are negative. Past Medical History Past Medical History: No Reported History History of Any Multi-Drug Resistant Organisms: None Reported Past Surgical History: Section Past Psychological History: Depression Smoking Status: Never smoker Past Alcohol Use History: Occasional Past Drug Use History: None Reported General Exam Limitations: no limitations General appearance: alert, in no apparent distress Head exam: Present: atraumatic, normocephalic, normal inspection Respiratory exam: Present: normal lung sounds bilaterally. Absent: respiratory distress, wheezes, rales, rhonchi, stridor Cardiovascular Exam: Present: regular rate, normal rhythm, normal heart sounds. Absent: systolic murmur, diastolic murmur, rubs, gallop, clicks Neurological exam: Present: alert, oriented X3, CN II-XII intact Psychiatric exam: Present: normal affect, normal mood Skin exam: Present: warm, dry, intact, normal color. Absent: rash Course Vital Signs 05/17/23 05/17/23 09:46 11:51 Temperature 98 F Pulse Rate 94 83 Respiratory 18 16 Rate Blood Pressure 122/78 115/76 O2 Sat by Pulse 100 100 Oximetry Medical Decision Making - Medical Decision Making This is a 22-year-old female who presents to the emergency department for vaginal bleeding in . Was pt. sent in by a medical professional or institution? @ -No Did you speak to anyone other than the patient for history? @ -No Did you review nursing and triage notes? @ -Yes, and I agree, it is accurate with regards to the patient's symptoms. Were old charts reviewed? @ -No Differential Diagnosis? @ -Differential Vaginal Bleeding: Spontaneous , threatened , molar , ectopic , incompetent cervix, placenta previa, uterine rupture, dysfunctional uterine bleeding, hemorrhage, uterine fibroids, malignancy, coagulopathy, PID, cervicitis, adenomyosis, vaginal trauma, this is not meant to be an all-inclusive list. EKG interpreted by me (3pts min.)? @ -Not obtained X-rays interpreted by me (1pt min.)? @ -Not obtained CT interpreted by me (1pt min.)? @ -Not obtained U/S interpreted by me (1pt. min.)? @ -Not interpreted by me What testing was considered but not performed? (CT, X-rays, U/S, labs)? Why? @ -None What meds were considered but not given? Why? @ -None Did you discuss the management of the patient with other professionals? @ -No Did you reconcile home meds? @ -No Was smoking cessation discussed for >3mins.? @ -No Was critical care preformed (if so, how long)? @ -No Were there social determinants of health that impacted care today? How? (Homelessness, low income, unemployed, alcoholism, drug addiction, transportation, low edu. Level, literacy, decrease access to med. care, alf, rehab)? @ -No Was there de-escalation of care discussed even if they declined? (Discuss DNR or withdrawal of care, Hospice)? @ -No What co-morbidities impacted this encounter? (DM, HTN, Smoking, COPD, CAD, Cancer, CVA, Hep., AIDS, mental health diagnosis, sleep apnea, morbid obesity)? @ - Was patient admitted / discharged? @ -Discharged. Lab work obtained and found to be nonactionable. HCG is 51.2. Obstetrics ultrasound did not identify an intrauterine , most likely given how early along the patient is as evidenced by her hCG. She is Rh+ and no RhoGAM is indicated. Urinalysis negative for signs of infection. She was given a lab slip to have her hCG repeated in 2 days. Advised she begin taking a vitamin and follow up with her [facility]. Undiagnosed new problem with uncertain prognosis? @ -None Drug Therapy requiring intensive monitoring for toxicity (Heparin, Nitro, Insul in, Cardizem)? @ -None Were any procedures done? @ -None Diagnosis/symptom? @ -Threatened miscarriage Acute, or Chronic, or Acute on Chronic? @ -Acute Uncomplicated (without systemic symptoms) or Complicated (systemic symptoms)? @ -Uncomplicated Side effects of treatment? @ -None Exacerbation, Progression, or Severe Exacerbation] @ -Not applicable Poses a threat to life or bodily function? @ -No Return precautions reviewed in depth, the patient is instructed to return to the emergency department with any new, worsening, or concerning symptoms. Patient verbalized understanding. This case was discussed in detail with the attending ED physician, Dr. Adler. Presentation, findings, and treatment plan discussed in detail as well. - Lab Data Result diagrams: 05/17/23 09:59 05/17/23 09:59 Lab Results 05/17/23 05/17/23 05/17/23 Range/Units 09:59 09:59 09:59 WBC 3.4 L (3.8-10.6) k/uL RBC 3.97 (3.80-5.40) m/uL Hgb 13.1 (11.4-16.0) gm/dL Hct 36.9 (34.0-46.0) % MCV 93.0 (80.0-100.0) fL MCH 33.1 (25.0-35.0) pg MCHC 35.6 (31.0-37.0) g/dL RDW 12.6 (11.5-15.5) % Plt Count 171 (150-450) k/uL MPV 8.5 Neutrophils % 51 % Lymphocytes % 39 % Monocytes % 6 % Eosinophils % 1 % Basophils % 1 % Neutrophils # 1.7 (1.3-7.7) k/uL Lymphocytes # 1.3 (1.0-4.8) k/uL Monocytes # 0.2 (0-1.0) k/uL Eosinophils # 0.0 (0-0.7) k/uL Basophils # 0.0 (0-0.2) k/uL PT 9.9 (9.0-12.0) sec INR 0.9 (<1.2) APTT 24.8 (22.0-30.0) sec Sodium 137 (137-145) mmol/L Potassium 4.0 (3.5-5.1) mmol/L Chloride 107 (98-107) mmol/L Carbon Dioxide 24 (22-30) mmol/L Anion Gap 6 mmol/L BUN 8 (7-17) mg/dL Creatinine 0.82 (0.52-1.04) mg/dL Est GFR (CKD-EPI)AfAm >90 (>60 ml/min/1.73 sqM) Est GFR (CKD-EPI)NonAf >90 (>60 ml/min/1.73 sqM) Glucose 74 (74-99) mg/dL Calcium 9.1 (8.4-10.2) mg/dL Total Bilirubin 0.7 (0.2-1.3) mg/dL AST 25 (14-36) U/L ALT 17 (4-34) U/L Alkaline Phosphatase 68 (38-126) U/L Total Protein 6.8 (6.3-8.2) g/dL Albumin 4.2 (3.5-5.0) g/dL HCG, Quant 51.2 mIU/mL Urine Color Urine Appearance (Clear) Urine pH (5.0-8.0) Ur Specific [place] (1.001-1.035) Urine Protein (Negative) Urine Glucose (UA) (Negative) Urine Ketones (Negative) Urine Blood (Negative) Urine Nitrite (Negative) Urine Bilirubin (Negative) Urine Urobilinogen (<2.0) mg/dL Ur Leukocyte Esterase (Negative) Urine RBC (0-5) /hpf Urine WBC (0-5) /hpf Ur Squamous Epith Cells (0-4) /hpf Blood Type Blood Type Recheck Bld Type Recheck Status 05/17/23 05/17/23 Range/Units 09:59 09:59 WBC (3.8-10.6) k/uL RBC (3.80-5.40) m/uL Hgb (11.4-16.0) gm/dL Hct (34.0-46.0) % MCV (80.0-100.0) fL MCH (25.0-35.0) pg MCHC (31.0-37.0) g/dL RDW (11.5-15.5) % Plt Count (150-450) k/uL MPV Neutrophils % % Lymphocytes % % Monocytes % % Eosinophils % % Basophils % % Neutrophils # (1.3-7.7) k/uL Lymphocytes # (1.0-4.8) k/uL Monocytes # (0-1.0) k/uL Eosinophils # (0-0.7) k/uL Basophils # (0-0.2) k/uL PT (9.0-12.0) sec INR (<1.2) APTT (22.0-30.0) sec Sodium (137-145) mmol/L Potassium (3.5-5.1) mmol/L Chloride (98-107) mmol/L Carbon Dioxide (22-30) mmol/L Anion Gap mmol/L BUN (7-17) mg/dL Creatinine (0.52-1.04) mg/dL Est GFR (CKD-EPI)AfAm (>60 ml/min/1.73 sqM) Est GFR (CKD-EPI)NonAf (>60 ml/min/1.73 sqM) Glucose (74-99) mg/dL Calcium (8.4-10.2) mg/dL Total Bilirubin (0.2-1.3) mg/dL AST (14-36) U/L ALT (4-34) U/L Alkaline Phosphatase (38-126) U/L Total Protein (6.3-8.2) g/dL Albumin (3.5-5.0) g/dL HCG, Quant mIU/mL Urine Color Light Yellow Urine Appearance Clear (Clear) Urine pH 7.5 (5.0-8.0) Ur Specific [place] 1.004 (1.001-1.035) Urine Protein Negative (Negative) Urine Glucose (UA) Negative (Negative) Urine Ketones Negative (Negative) Urine Blood Negative (Negative) Urine Nitrite Negative (Negative) Urine Bilirubin Negative (Negative) Urine Urobilinogen <2.0 (<2.0) mg/dL Ur Leukocyte Esterase Small H (Negative) Urine RBC 4 (0-5) /hpf Urine WBC 3 (0-5) /hpf Ur Squamous Epith Cells 2 (0-4) /hpf Blood Type O Positive Blood Type Recheck O Pos Bld Type Recheck Status No - Radiology Data Radiology results: report reviewed, image reviewed Disposition Clinical Impression: Threatened miscarriage Disposition: HOME SELF-CARE Instructions (If sedation given, give patient instructions): Threatened Miscarriage (ED) Additional Instructions: Return to the emergency department with any new, worsening, or concerning symptoms. Take the lab slip to get your hCG levels redrawn in 48 hours. Contact your [facility] office for ongoing obstetrics care. Make sure you're taking a vitamin. Is patient prescribed a controlled substance at d/c from ED?: No Referrals: None,Stated [Primary Care Provider] - 1-2 days Olivia Mendoza DO [Doctor of Osteopathic Medicine] - 1-2 days
[2023-05-17 10:33] LABS: Basophils % (A) 1 %; Eosinophils % (A) 1 %; HCT 36.9 % (34.0-46.0); HGB 13.1 gm/dL (11.4-16.0); Lymphocytes # (A) 1.3 k/uL (1.0-4.8); Lymphocytes % (A) 39 %; MCH 33.1 pg (25.0-35.0); MCHC 35.6 g/dL (31.0-37.0); Mean Platelet Volume 8.5; Monocytes # (A) 0.2 k/uL (0-1.0); Monocytes % (A) 6 %; Neutrophils # (A) 1.7 k/uL (1.3-7.7); Neutrophils % (A) 51 %; Platelet Count 171 k/uL (150-450); RBC 3.97 m/uL (3.80-5.40); RDW 12.6 % (11.5-15.5); WBC 3.4 k/uL (3.8-10.6)
[2023-05-17 10:49] LABS: ALT 17 U/L (4-34); AST 25 U/L (14-36); African American GFR (CKD) >90 (>60 ml/min/1.73 sqM); Albumin 4.2 g/dL (3.5-5.0); Alkaline Phosphatase 68 U/L (38-126); Anion Gap 6 mmol/L; Blood Urea Nitrogen 8 mg/dL (7-17); Calcium 9.1 mg/dL (8.4-10.2); Carbon Dioxide 24 mmol/L (22-30); Chloride 107 mmol/L (98-107); Glucose 74 mg/dL (74-99); Non-African American GFR(CKD) >90 (>60 ml/min/1.73 sqM); Sodium 137 mmol/L (137-145); Total Bilirubin 0.7 mg/dL (0.2-1.3); Total Protein 6.8 g/dL (6.3-8.2)
[2023-05-17 10:50] LABS: INR 0.9 (<1.2); Partial Thromboplastin Time 24.8 sec (22.0-30.0); Prothrombin Time 9.9 sec (9.0-12.0)
[2023-05-17 10:51] LABS: Appearance,Urine Clear (Clear); Bilirubin,Urine Negative (Negative); Blood,Urine Negative (Negative); Color,Urine Light Yellow; Glucose,Urine (UA) Negative (Negative); Ketones,Urine Negative (Negative); Leukocyte Esterase,Urine Small (Negative); Nitrite,Urine Negative (Negative); PH, Urine 7.5 (5.0-8.0); Protein,Urine Negative (Negative); RBC,Urine 4 /hpf (0-5); Specific Gravity,Urine 1.004 (1.001-1.035); Squamous Epithelial Cell,Urine 2 /hpf (0-4); Urobilinogen,Urine <2.0 mg/dL (<2.0); WBC,Urine 3 /hpf (0-5)
[2023-05-17 11:04] LABS: HCG,Quantitative Serum 51.2 mIU/mL
--- NOTE | 2023-05-17 11:10 | US ---
EXAMINATION TYPE: Transabdominal DATE OF EXAM: 05/17/2023 10:41 AM COMPARISON: NONE CLINICAL INDICATION: Female, 22 years old with history of Vaginal bleeding in ; spotting EXAM PERFORMED: Transabdominal (TA) EXAM MEASUREMENTS: GESTATIONAL AGE / DATING Physician Established: Not yet established Dates by LMP: LMP unknown Dates by First Scan: No previous this is first Dates by Current Scan for: No IUP seen at this time MATERNAL ANATOMY Uterus: 7.5 x 5.0 x 5.9 cm Right Ovary: 3.8 x 3.0 x 3.2 cm Left Ovary: 3.0 x 2.1 x 1.8 cm Post CDS / Adnexa: wnl Presence of free fluid: no Presence of corpus luteal cyst: no Presence of subchorionic bleed: no GESTATION / SURVEY IUP: No IUP seen at this time Beta HcG (if available): Not available at this time IMPRESSION: 1. No evidence for intrauterine gestational sac. Correlate with serum beta hCG. 2. No intrauterine device visualized.
[2023-05-17 12:01] VITALS: BP 115/76; PULSE 83; RESP 16
== END 2023-05-17 12:01 | disposition home or self-care (01) ==
LOC: EC 09:41
DX: O20.0 Threatened abortion (principal); F32.A Depression, unspecified; Z79.899 Other long term (current) drug therapy; Z88.1 Allergy status to other antibiotic agents; Z3A.14 14 weeks gestation of pregnancy
CPT/HCPCS: 36415; 76801; 80053; 81001; 84702; 85025; 85610; 85730; 86900; 86901; 99284

== ENCOUNTER → 2023-05-19 | Outpatient (CLI) | payer OTHER | END | disposition home or self-care (01) | LOC: LABWHC1 07:10 | PROVIDERS: ATTEND Physician Assistant | DX: O20.0 Threatened abortion (principal); Z3A.00 Weeks of gestation of pregnancy not specified | CPT/HCPCS: 36415; 84702 ==

== ENCOUNTER 2024-03-20 20:58 | Emergency (ER) | payer OTHER ==
[2024-03-20 21:03] VITALS: TEMP 99.5
--- NOTE | 2024-03-20 21:48 | ED ---
Abdominal Pain HPI - General Source: patient, RN notes reviewed Mode of arrival: ambulatory Limitations: no limitations <Alida Espino - Last Filed: 03/20/24 21:46> <John Adler - Last Filed: 03/21/24 02:26> - General Chief Complaint: Abdominal Pain Stated Complaint: R side pain Time Seen by Provider: 03/20/24 21:12 - History of Present Illness Initial Comments: Quick note- this is a 23-year-old female presents emergency department chief complaint of right upper quadrant abdominal pain over the past few days. She endorses feelings of fever as well as nausea, no vomiting. She denies diarrhea, constipation, urinary symptoms. Previous abdominal surgery of . (Alida Espino) Patient is a 23-year-old female who presents emergency department complaining of abdominal pain. Primarily in the right upper quadrant and right upper flank. Patient started as a quick note. No significant past medical history. Denies any urinary complaints. Denies any vaginal discharge or bleeding. States that is possible she is . Denies any significant emesis but does endorse na usea. Denies any change in bowel movements or bowel habits. Denies any chest pain or shortness of breath. Symptoms have been present for days. States that originally felt she had COVID. Presents for further evaluation at this time. (John Adler) - Related Data Home Medications Medication Instructions Recorded Confirmed lamoTRIgine [lamoTRIgine ER] 200 mg PO HS 05/06/22 05/06/22 Previous Rx's Medication Instructions Recorded Sulfamethox-Tmp 800-160Mg [Bactrim 1 tab PO Q12HR 3 Days #6 tab 05/06/22 DS 800-160 mg] Famotidine [Pepcid] 20 mg PO DAILY 7 Days #7 tablet 03/21/24 Allergies Allergy/AdvReac Type Severity Reaction Status Date / Time nitrofurantoin Allergy Rash/Hives/leg Verified 03/20/24 21:02 [From Macrobid] swelling/chest tightness Review of Systems ROS Other: All systems not noted in ROS Statement are negative. <Alida Espino - Last Filed: 03/20/24 21:46> ROS Other: All systems not noted in ROS Statement are negative. <John Adler - Last Filed: 03/21/24 02:26> ROS Statement: Those systems with pertinent positive or pertinent negative responses have been documented in the HPI. Review of Systems: CONST: Denies fever EYES: Denies blurry vision ENT: Denies nasal congestion C/V: Denies Chest pain RESP: Denies shortness of breath GI: Endorses right flank pain : Denies dysuria SKIN: Denies rash. MSK: Denies joint pain. NEURO: Denies headache (John Adler) Past Medical History Past Medical History: No Reported History History of Any Multi-Drug Resistant Organisms: None Reported Past Surgical History: Section Past Psychological History: Depression Smoking Status: Former smoker Past Alcohol Use History: Occasional Past Drug Use History: None Reported <Alida Espino - Last Filed: 03/20/24 21:46> General Exam Limitations: no limitations <Alida Espino - Last Filed: 03/20/24 21:46> <John Adler - Last Filed: 03/21/24 02:26> - General Exam Comments Initial Comments: Visual Physical Exam Vital signs reviewed General: Well-appearing, nontoxic, no acute distress. Head: Normocephalic, atraumatic Eyes: PERRLA, EOMI ENT: Airway patent Chest: Nonlabored breathing Skin: No visual rash, normal skin tone Neuro: Alert and oriented 3 Musculoskeletal: No gross abnormalities (Alida Espino) General: Appears in no acute distress. HEAD: Normal with no signs of head trauma. EYES: PERRLA, EOMI, conjunctiva normal, no discharge. ENT: Hearing grossly intact, normal oropharynx. RESPIRATORY: Clear breath sounds bilaterally. No wheezes, rales, or rhonchi. C/V: Regular rate and rhythm. S1 and S2 auscultated, no edema, peripheral pulses 2+ and intact throughout ABD: Abdomen is soft, nondistended. Mild tenderness to palpation in the right upper quadrant as well as right upper flank. No significant lower abdominal tenderness to palpation. No adnexal tenderness. No guarding. No rebound tenderness. No peritoneal signs. EXT: Normal range of motion, no obvious deformity SKIN: No rashes or lesions observed on exposed skin. NEURO: Alert and oriented x 4. (John Adler) Course Vital Signs 03/20/24 03/21/24 20:59 00:58 Temperature 99.5 F Pulse Rate 96 65 Respiratory 18 16 Rate Blood Pressure 129/84 124/75 O2 Sat by Pulse 100 98 Oximetry Medical Decision Making <Alida Espino - Last Filed: 03/20/24 21:46> - Lab Data Result diagrams: 03/20/24 22:11 03/20/24 22:11 <John Adler - Last Filed: 03/21/24 02:26> - Medical Decision Making I completed the quick note portion of this chart signed Alida Espino PA-C (Alida Espino) Was pt. sent in by a medical professional or institution (JOHN Mares, RUG SETTER AXMINSTER, urgent care, hospital, or assisted...) When possible be specific @ -No Did you speak to anyone other than the patient for history (EMS, parent, family, police, friend...)? What history was obtained from this source @ -No Did you review nursing and triage notes (agree or disagree)? Why? @ -I reviewed and agree with nursing and triage notes Were old charts reviewed (outside hosp., previous admission, EMS record, old EKG, old radiological studies, urgent care reports/EKG's, assisted records)? Report findings @ -No old charts were reviewed Differential Diagnosis (chest pain, altered mental status, abdominal pain women, abdominal pain men, vaginal bleeding, weakness, fever, dyspnea, syncope, headache, dizziness, GI bleed, back pain, seizure, CVA, palpatations, mental health, musculoskeletal)? @ -Differential Abdominal Pain Women: Appendicitis, Cholecystitis, diverticulosis, ischemic bowel, pancreatitis, hepatitis, UTI, gastroenteritis, AAA, incarcerated hernia, bowel obstruction, constipation, inflammatory bowel, hepatitis, peptic ulcer disease, splenic infarction, perforated viscus, vulvitis, ovarian torsion, PID, kidney stone, placenta abruption, this is not meant to be an all-inclusive list EKG interpreted by me (3pts min.). @ -None done X-rays interpreted by me (1pt min.). @ -None done CT interpreted by me (1pt min.). @ -CT abdomen pelvis reveals no obvious acute intra-abdominal process. Patient has had uncomplicated tiny 1 mm left nephrolithiasis. U/S interpreted by me (1pt. min.). @ -Ultrasound of the gallbladder and right upper quadrant revealed no obvious acute process. What testing was considered but not performed or refused? (CT, X-rays, U/S, labs)? Why? @ -None What meds were considered but not given or refused? Why? @ -None Did you discuss the management of the patient with other professionals (professionals i.e. , PA, RUG SETTER AXMINSTER, lab, RT, psych nurse, manager social work, macaroni maker, teacher, court security officer, vocational case manager)? Give summary @ -No Was smoking cessation discussed for >3mins.? @ -No Was critical care preformed (if so, how long)? @ -No Were there social determinants of health that impacted care today? How? (Homelessness, low income, unemployed, alcoholism, drug addiction, transportation, low edu. Level, literacy, decrease access to med. care, custodial, rehab)? @ -No Was there de-escalation of care discussed even if they declined (Discuss DNR or withdrawal of care, Hospice)? DNR status @ -No What co-morbidities impacted this encounter? (DM, HTN, Smoking, COPD, CAD, Cancer, CVA, ARF, Chemo, Hep., AIDS, mental health diagnosis, sleep apnea, morbid obesity)? @ -None Was patient admitted / discharged? Hospital course, mention meds given and route, prescriptions, significant lab abnormalities, going to OR and other pertinent info. @ -Patient originally seen as a quick note. Presents with right upper quadrant and flank pain. Ultrasound of the gallbladder so far reveals no obvious acute process. We are still awaiting laboratory results. As discussed with the patient and we will obtain CT to evaluate for possible kidney stone. She was in agreement this plan. We will wait for test prior to obtaining CT. She will be symptomatically treated with IV fluids, Zofran, Toradol. Vital signs are within acceptable limits. She was in agreement this plan. Laboratory studies are unremarkable.Laboratory studies returned unremarkable. S he is not . CT imaging unremarkable. I updated the patient. She is tolerating oral intake at this time. I discussed with her diagnosis for the right upper quadrant and epigastric abdominal pain is abdominal pain of unknown etiology. She has no lower abdominal pain. Strict return precautions discussed but I believe it is safer to be discharged home at this time and she was in agreement this plan. I will provide the patient with a prescription for Pepcid. I instructed the patient to follow up with their PCP in the next 1-3 days.. I explained that the patient should return to the emergency department if they experience any worsening symptoms. Strict return precautions were discussed with the patient. The patient expressed understanding of these instructions. I answered all que stions that the patient had. The patient was discharged home in good condition with their prescriptions and follow up information. Undiagnosed new problem with uncertain prognosis? @ -No Drug Therapy requiring intensive monitoring for toxicity (Heparin, Nitro, Insulin, Cardizem)? @ -No Were any procedures done? @ -No Diagnosis/symptom? @ -Abdominal pain of unknown etiology Acute, or Chronic, or Acute on Chronic? @ -Acute Uncomplicated (without systemic symptoms) or Complicated (systemic symptoms)? @ -Uncomplicated Side effects of treatment? @ -None Exacerbation, Progression, or Severe Exacerbation] @ -No Poses a threat to life or bodily function? @ -Unlikely (John Adler) - Lab Data Lab Results 03/20/24 03/20/24 03/20/24 Range/Units 22:11 22:11 23:10 WBC 8.0 (3.8-10.6) k/uL RBC 4.19 (3.80-5.40) m/uL Hgb 13.4 (11.4-16.0) gm/dL Hct 40.1 (34.0-46.0) % MCV 95.7 (80.0-100.0) fL MCH 32.0 (25.0-35.0) pg MCHC 33.4 (31.0-37.0) g/dL RDW 12.6 (11.5-15.5) % Plt Count 239 (150-450) k/uL MPV 8.5 Neutrophils % 71 % Lymphocytes % 21 % Monocytes % 4 % Eosinophils % 0 % Basophils % 1 % Neutrophils # 5.7 (1.3-7.7) k/uL Lymphocytes # 1.7 (1.0-4.8) k/uL Monocytes # 0.3 (0-1.0) k/uL Eosinophils # 0.0 (0-0.7) k/uL Basophils # 0.1 (0-0.2) k/uL Sodium 135 L (137-145) mmol/L Potassium 3.7 (3.5-5.1) mmol/L Chloride 103 (98-107) mmol/L Carbon Dioxide 20 L (22-30) mmol/L Anion Gap 12 mmol/L BUN 8 (7-17) mg/dL Creatinine 0.71 (0.52-1.04) mg/dL Est GFR (CKD-EPI)AfAm >90 (>60 ml/min/1.73 sqM) Est GFR (CKD-EPI)NonAf >90 (>60 ml/min/1.73 sqM) Glucose 84 (74-99) mg/dL Calcium 8.9 (8.4-10.2) mg/dL Total Bilirubin 1.0 (0.2-1.3) mg/dL AST 22 (14-36) U/L ALT 14 (4-34) U/L Alkaline Phosphatase 89 (38-126) U/L Total Protein 7.7 (6.3-8.2) g/dL Albumin 4.2 (3.5-5.0) g/dL Amylase 51 (30-110) U/L Lipase 69 (23-300) U/L HCG, Qual Not Detected Disposition <Alida Espino - Last Filed: 03/20/24 21:46> Is patient prescribed a controlled substance at d/c from ED?: No Time of Disposition: 00:48 <John Adler - Last Filed: 03/21/24 02:26> Clinical Impression: Abdominal pain of unknown etiology Disposition: HOME SELF-CARE Condition: Good Instructions (If sedation given, give patient instructions): Abdominal Pain (ED) Prescriptions: Famotidine [Pepcid] 20 mg PO DAILY 7 Days #7 tablet Referrals: Adam Gallegos MD [Primary Care Provider] - 1-2 days
[2024-03-20 22:30] LABS: Basophils # (A) 0.1 k/uL (0-0.2); Basophils % (A) 1 %; Eosinophils % (A) 0 %; HCT 40.1 % (34.0-46.0); HGB 13.4 gm/dL (11.4-16.0); Lymphocytes # (A) 1.7 k/uL (1.0-4.8); Lymphocytes % (A) 21 %; MCHC 33.4 g/dL (31.0-37.0); MCV 95.7 fL (80.0-100.0); Mean Platelet Volume 8.5; Monocytes # (A) 0.3 k/uL (0-1.0); Monocytes % (A) 4 %; Neutrophils # (A) 5.7 k/uL (1.3-7.7); Neutrophils % (A) 71 %; Platelet Count 239 k/uL (150-450); RBC 4.19 m/uL (3.80-5.40); RDW 12.6 % (11.5-15.5)
--- NOTE | 2024-03-20 22:51 | US ---
EXAMINATION TYPE: US gallbladder DATE OF EXAM: 03/20/2024 COMPARISON: NONE CLINICAL INDICATION: Female, 23 years old with history of RUQ ab pain; Patient states RUQ pain for 3 days. Patient last ate around 4 hours ago TECHNIQUE: Multiple sonographic images of the right upper quadrant are obtained. FINDINGS: EXAM MEASUREMENTS: Liver Length: 18.2 cm Gallbladder Wall: 0.2 cm CBD: 0.3 cm Right Kidney: 10.2 x 5.8 x 5.2 cm AUTO RENTAL CLERK NOTES:Slightly limited due to overlying bowel gas Pancreas: wnl as best seen today Liver: wnl as best seen today Gallbladder: Appears slightly contracted, however no stones seen. Evidence for sonographic Whitaker's sign: No CBD: wnl Right Kidney: No hydronephrosis or masses seen as best visualized today IMPRESSION: Suboptimal study but no shadowing mobile gallstones or sonographic evidence for acute cho lecystitis.
[2024-03-20 23:04] LABS: ALT 14 U/L (4-34); AST 22 U/L (14-36); African American GFR (CKD) >90 (>60 ml/min/1.73 sqM); Albumin 4.2 g/dL (3.5-5.0); Alkaline Phosphatase 89 U/L (38-126); Amylase 51 U/L (30-110); Blood Urea Nitrogen 8 mg/dL (7-17); Calcium 8.9 mg/dL (8.4-10.2); Carbon Dioxide 20 mmol/L (22-30); Glucose 84 mg/dL (74-99); Lipase 69 U/L (23-300); Non-African American GFR(CKD) >90 (>60 ml/min/1.73 sqM); Total Protein 7.7 g/dL (6.3-8.2)
[2024-03-20] MEDS: KETOROLAC 15 MG/ML 1 ML VIAL IVP STA (23:15)
[2024-03-20] MEDS: ONDANSETRON 4 MG/2 ML VIAL IVP STA (23:17)
[2024-03-20] MEDS: SODIUM CHLORIDE 0.9% 1,000 ML IV STA (23:19)
[2024-03-20 23:23] LABS: Anion Gap 12 mmol/L; Chloride 103 mmol/L (98-107); Potassium 3.7 mmol/L (3.5-5.1); Sodium 135 mmol/L (137-145)
--- NOTE | 2024-03-21 | CT ---
EXAMINATION TYPE: CT abdomen pelvis wo con DATE OF EXAM: 03/20/2024 HISTORY: Pt states right sided flank pain x3 days with nausea. H/O CT DLP: 483.7 mGycm. Automated Exposure Control for Dose Reduction was Utilized. TECHNIQUE: CT scan of the abdomen and pelvis is performed without oral or IV contrast. COMPARISON: NONE FINDINGS: Within the limitations of a non-contrast study, the following observations are made. LUNG BASES: No significant abnormality is appreciated. LIVER/GB: No significant abnormality is appreciated. PANCREAS: No significant abnormality is seen. SPLEEN: No significant abnormality is seen. ADRENALS: No significant abnormality is seen. KIDNEYS: Punctate 1 mm nonobstructing calculus left kidney coronal image 58. No right-sided nephrolit hiasis. No hydronephrosis or obstructing ureteral calculi seen bilaterally. BOWEL: The terminal Ileum appears within normal limits coronal image 38. Appendix also within normal limits. No abnormal small or large bowel dilatation. GENITAL ORGANS: Anteverted uterus. LYMPH NODES: No greater than 1cm abdominal or pelvic lymph nodes are appreciated. OSSEOUS STRUCTURES: No significant abnormality is seen. OTHER: No significant additional abnormality is seen. IMPRESSION: Tiny 1 mm nonobstructing left renal calculus. No hydronephrosis obstructing ureteric calc laina seen bilaterally. No acute findings seen to account for patient's symptoms of right-sided flank p ain.
[2024-03-21] MEDS: ONDANSETRON 4 MG ODT STARTER PACK 2 TAB BTL PO STA (00:54)
[2024-03-21 01:21] VITALS: BP 124/75; PULSE 65; RESP 16
== END 2024-03-21 01:01 | disposition home or self-care (01) ==
LOC: EC 20:58
DX: N20.0 Calculus of kidney (principal); Z88.8 Allergy status to other drugs, medicaments and biological substances; Z87.891 Personal history of nicotine dependence
CPT/HCPCS: 80053; 82150; 83690; 85025; 84703; 76705; 74176; 99284; 96374; 96375; 96361; J2405; J1885; 36415

== ENCOUNTER 2024-11-11 14:37 | Emergency (ER) | payer BC, OTHER ==
[2024-11-11 15:57] VITALS: RESP 18
--- NOTE | 2024-11-11 16:02 | ED ---
Upper Extremity HPI - General Source: patient, RN notes reviewed Mode of arrival: ambulatory Limitations: physical limitation - History of Present Illness MD Complaint: Injury to:: right <Jose Wang - Last Filed: 11/11/24 16:00> <Jae Beltre - Last Filed: 11/11/24 22:38> - General Chief Complaint: Extremity Injury, Upper Stated Complaint: Vasu hand injury Time Seen by Provider: 11/11/24 14:51 - History of Present Illness Initial Comments: Quick note: This is a 24-year-old female presenting with hand pain (07/11) after punching a wall last night. Denies other injuries. Denies [id number] medication use. (Jose Wang) 24-year-old female presenting with chief complaint of bilateral hand pain. Patient states that she punched theof her car last night. She is having pain that is worse in the right hand. She has significant swelling to the right hand with some limited range of motion. She has full range of motion of the left hand with some mild swelling. No other injuries. No numbness or tingling. (Per Jae valdes) - Related Data Home Medications Medication Instructions Recorded Confirmed lamoTRIgine [lamoTRIgine ER] 200 mg PO HS 05/06/22 05/06/22 Previous Rx's Medication Instructions Recorded Sulfamethox-Tmp 800-160Mg [Bactrim 1 tab PO Q12HR 3 Days #6 tab 05/06/22 DS 800-160 mg] Famotidine [Pepcid] 20 mg PO DAILY 7 Days #7 tablet 03/21/24 Allergies Allergy/AdvReac Type Severity Reaction Status Date / Time nitrofurantoin Allergy Rash/Hives/leg Verified 11/11/24 15:53 [From Macrobid] swelling/chest tightness Review of Systems ROS Other: All systems not noted in ROS Statement are negative. <Jose Wang - Last Filed: 11/11/24 16:00> ROS Other: All systems not noted in ROS Statement are negative. <Jae Beltre - Last Filed: 11/11/24 22:38> ROS Statement: Those systems with pertinent positive or pertinent negative responses have been documented in the HPI. Past Medical History Past Medical History: No Reported History History of Any Multi-Drug Resistant Organisms: None Reported Past Surgical History: Section Past Psychological History: Depression Smoking Status: Former smoker Past Alcohol Use History: Occasional Past Drug Use History: None Reported <Jose Wang - Last Filed: 11/11/24 16:00> General Exam Limitations: physical limitation <Joes Wang - Last Filed: 11/11/24 16:00> General appearance: alert, in no apparent distress Head exam: Present: atraumatic, normocephalic, normal inspection Eye exam: Present: normal appearance, EOMI Neck exam: Present: normal inspection. Absent: meningismus Respiratory exam: Absent: respiratory distress Cardiovascular Exam: Present: regular rate Left Hand Wrist exam: Present: full ROM, tenderness, swelling Right Hand Wrist exam: Present: tenderness, swelling, deformity. Absent: normal inspection, full ROM Vascular: Absent: vascular compromise Neurological exam: Present: alert, oriented X3 Psychiatric exam: Present: normal affect, normal mood Skin exam: Present: warm, dry <Jae Beltre - Last Filed: 11/11/24 22:38> - General Exam Comments Initial Comments: Visual Physical Exam Vital signs reviewed General: Well-appearing, nontoxic, no acute distress. Head: Normocephalic, atraumatic Eyes: PERRLA, EOMI ENT: Airway patent Chest: Nonlabored breathing Skin: No visual rash, normal skin tone Neuro: Alert and oriented 3 Musculoskeletal: Significant right hand edema noted (Jose Wang) Course Vital Signs 11/11/24 11/11/24 15:53 19:28 Temperature 98.4 F 98.3 F Pulse Rate 86 79 Respiratory 18 18 Rate Blood Pressure 123/87 115/76 O2 Sat by Pulse 99 100 Oximetry Procedures - Orthopedic Splinting/Casting Injury #1 Side: right Upper Extremity Injury Location: hand Upper Extremity Immobilizer: ulnar gutter <Jae Beltre - Last Filed: 11/11/24 22:38> Medical Decision Making <Jose Wang - Last Filed: 11/11/24 16:00> <Jae Beltre - Last Filed: 11/11/24 22:38> - Medical Decision Making I completed the quick note portion of this chart signed TOÑITO Thakkar (Jose Wang) Was pt. sent in by a medical professional or institution (JOHN Mares, DATABASE SOFTWARE TECHNICIAN, urgent care, hospital, or snf...) When possible be specific @ -No Did you speak to anyone other than the patient for history (EMS, parent, family, police, friend...)? What history was obtained from this source @ -No Did you review nursing and triage notes (agree or disagree)? Why? @ -I reviewed and agree with nursing and triage notes Were old charts reviewed (outside hosp., previous admission, EMS record, old EKG, old radiological studies, urgent care reports/EKG's, snf records)? Report findings @ -No old charts were reviewed Differential Diagnosis (chest pain, altered mental status, abdominal pain women, abdominal pain men, vaginal bleeding, weakness, fever, dyspnea, syncope, headache, dizziness, GI bleed, back pain, seizure, CVA, palpatations, mental health, musculoskeletal)? @ -Differential includes fracture, dislocation, sprain, strain, not an all- inclusive list EKG interpreted by me (3pts min.). @ -As above X-rays interpreted by me (1pt min.). @ -X-ray of the right hand shows a left fifth metacarpal boxer's fracture. Mi ld volar angulation mild step-off towards the radial aspect up to 2 mm. No acute osseous process seen on x-ray of the left hand CT interpreted by me (1pt min.). @ -None done U/S interpreted by me (1pt. min.). @ -None done What testing was considered but not performed or refused? (CT, X-rays, U/S, labs)? Why? @ -None What meds were considered but not given or refused? Why? @ -None Did you discuss the management of the patient with other professionals (professionals i.e. JOHN Mares, DATABASE SOFTWARE TECHNICIAN, lab, RT, psych nurse, social work associate, air cargo specialist, teacher, chief medical officer, human services case manager)? Give summary @ -No Was smoking cessation discussed for >3mins.? @ -No Was critical care preformed (if so, how long)? @ -No Were there social determinants of health that impacted care today? How? (Homelessness, low income, unemployed, alcoholism, drug addiction, transportation, low edu. Level, literacy, decrease access to med. care, assisted, rehab)? @ -No Was there de-escalation of care discussed even if they declined (Discuss DNR or withdrawal of care, Hospice)? DNR status @ -No What co-morbidities impacted this encounter? (DM, HTN, Smoking, COPD, CAD, Cancer, CVA, ARF, Chemo, Hep., AIDS, mental health diagnosis, sleep apnea, morbid obesity)? @ -None Was patient admitted / discharged? Hospital course, mention meds given and route, prescriptions, significant lab abnormalities, going to OR and other pertinent info. @ -24-year-old female presenting with chief complaint of bilateral hand pain after an injury. Right hand positive for boxer's fracture, negative left hand x-ray. Patient is placed in ulnar gutter splint. Educated on today's findings and supportive management, follow-up with orthopedics. Follow-up with PCP. Report back to ER with any new or worsening symptoms. Discussed return parameters and answered all questions. Patient conveyed verbal understanding and agreed to the plan. I discussed this case in detail with my attending Dr. Garcia Undiagnosed new problem with uncertain prognosis? @ -No Drug Therapy requiring intensive monitoring for toxicity (Heparin, Nitro, Insulin, Cardizem)? @ -No Were any procedures done? @ -Splint applied Diagnosis/symptom? @ -Boxer's fracture Acute, or Chronic, or Acute on Chronic? @ -Acute Uncomplicated (without systemic symptoms) or Complicated (systemic symptoms)? @ -Uncomplicated Side effects of treatment? @ -No Exacerbation, Progression, or Severe Exacerbation? @ -No Poses a threat to life or bodily function? How? (Chest pain, [place], [place], pneumonia, PE, COPD, DKA, ARF, appy, cholecystitis, CVA, Diverticulitis, Homicidal, Suicidal, threat to staff... and all critical care pts) @ -There is threat to regaining full function if the patient does not follow-up with orthopedics (Jae Beltre) Disposition <Jose Wang - Last Filed: 11/11/24 16:00> Is patient prescribed a controlled substance at d/c from ED?: No Time of Disposition: 18:07 <Jae Beltre - Last Filed: 11/11/24 22:38> Clinical Impression: Fracture of fifth metacarpal bone Disposition: HOME SELF-CARE Condition: Good Instructions (If sedation given, give patient instructions): Hand Fracture (ED), Boxer Fracture (ED) Additional Instructions: Follow-up with orthopedics. Report back to ER with any new or worsening symptoms. Take Motrin and Tylenol as needed for pain control. Do not combine Tylenol 3 with [id number] Tylenol. Keep your splint on. Rest ice and elevate the hand. Referrals: Rich Watson MD [Primary Care Provider] - 1-2 days Servando Whitaker MD [STAFF PHYSICIAN] - 1-2 days
--- NOTE | 2024-11-11 17:24 | XR ---
EXAMINATION TYPE: XR hand complete RT DATE OF EXAM: 11/11/2024 4:54 PM COMPARISON: None CLINICAL INDICATION: Female, 24 years old with history of Punched wall; PHH, pain TECHNIQUE: XR hand complete RT 3 views were obtained. FINDINGS/IMPRESSION: Left fifth metacarpal boxer's fracture. Mild volar angulation mild step-off towards the radial aspect up to 2 mm. [facility], , 11/11/2024 5:22 PM
--- NOTE | 2024-11-11 18:09 | XR ---
EXAMINATION TYPE: XR hand complete LT DATE OF EXAM: 11/11/2024 6:04 PM COMPARISON: Contralateral side. CLINICAL INDICATION: Female, 24 years old with history of injury; PHH, pain TECHNIQUE: XR hand complete LT 3 views were obtained. FINDINGS: Normal alignment of the visualized joints. No acute osseous pathology is identified. No e vidence of soft tissue swelling. No significant degeneration IMPRESSION: No acute osseous pathology. [facility], , 11/11/2024 6:07 PM
[2024-11-11] MEDS: ACET/COD 300 MG/30 MG STARTER PACK 6 TAB BTL PO STA (19:31)
[2024-11-11] MEDS: KETOROLAC 15 MG/ML 1 ML VIAL IM STA (19:32)
[2024-11-11 19:36] VITALS: BP 115/76; PULSE 79; TEMP 98.3
== END 2024-11-11 19:36 | disposition home or self-care (01) ==
LOC: EC 14:37
DX: S62.337A Displaced fracture of neck of fifth metacarpal bone, left hand, initial encounter for closed fracture (principal); M79.642 Pain in left hand; M79.89 Other specified soft tissue disorders; Z88.1 Allergy status to other antibiotic agents; Z87.891 Personal history of nicotine dependence; W22.01XA Walked into wall, initial encounter
CPT/HCPCS: 73130 ×2; 29125; 99283; 96372; J1885